=== PATIENT | female | born 1940 | race Caucasian/White ===

== ENCOUNTER 2019-05-20 13:12 | Inpatient (IN) | payer OTHER, BC ==
--- NOTE | 2019-05-20 13:34 | PDOC ---
History of Present Illness - General Chief Complaint: Wound Stated Complaint: INFECTION LFT FOOT Time Seen by Provider: 05/20/19 13:14 History Source: Patient Exam Limitations: No Limitations - History of Present Illness Initial Comments: 79 year old female with PMH HTN, HLD, atrial fibrillation on Xarelto, chronic lower extremity neuropathy, MANDEEP presented to ED for increasing LLE redness/pain xlast few days. Pt was recently admitted for LLE cellulitis ([facility]) x2 weeks ago for 4-5 days, was discharged, saw PCP and podiatry F/U, was told to stop oral Abx. Pt reported the pain of her left foot was so intense this AM that she took 3 Gabapentins and Tramadol, which improved her symptoms. Pt sent to ED by Podiatry Dr. Daily today, to consult Dr. Trejo, Dr. Boswell, and admit to Dr. Barakat's service. PCP: Justo ID: Neil Vascular: Elbert Podiatry: Killian FRANCIS General: denied fever, chills, generalized weakness. HEENT: denied sore throat, rhinorrhea, ear pain. Cardiovascular: denied chest pain, palpitations, syncope, diaphoresis. Respiratory: denied shortness of breath, cough, sputum production, hemoptysis. Gastrointestinal: denied abdominal pain, nausea, vomiting, diarrhea, constipation, blood in stool. Genitourinary: denied dysuria, increased urinary frequency, hematuria, urinary incontinence, flank pain. Back: denied back pain. Musculoskeletal: admitted to LLE pain. Neurological: denied headache, dizziness, numbness, tingling, weakness. Integumentary: admitted to erythema. denied laceration, abrasion. Hematologic/Lymphatic: denied bruising or bleeding. PE Constitutional: Well-nourished, Well-developed, appearing stated age. HEENT: head is normocephalic, atraumatic. EOMI. PERRLA. Neck: supple. Full ROM. Cardiovascular: regular heart rhythm. no murmurs. no pericardial friction rub. Respiratory: clear to auscultation bilaterally. no crackles, rhonchi or wheezing. no stridor. Gastrointestinal: soft, nontender. normal bowel sounds. no rebound, guarding, masses. Extremities: peripheral pulses intact. LLE erythematous up to below left knee. Neurological: CN 2-12 grossly intact. moves all four extremities. Psych: awake, alert, oriented x3. follows commands. answers questions appropriately. Past History - Past Medical History Allergies/Adverse Reactions: Allergies Allergy/AdvReac Type Severity Reaction Status Date / Time codeine Allergy Verified 05/20/19 13:17 morphine Allergy Verified 05/20/19 13:17 Sulfa (Sulfonamide Allergy Verified 05/20/19 13:17 Antibiotics) Home Medications: Ambulatory Orders Armodafinil 1 tab PO DAILY 02/23/18 Rivaroxaban [Xarelto -] 1 tab PO DAILY 02/23/18 Cephalexin Monohydrate [Keflex -] 1 tab PO QID 05/20/19 Diltiazem HCl [Cartia Xt] 1 tab PO HS 05/20/19 Omeprazole 1 tab PO DAILY 05/20/19 Pravastatin Sodium 1 tab PO HS 05/20/19 Pregabalin [Lyrica -] 150 mg PO BID 05/20/19 Sennosides [Senna -] 2 tab PO BID 05/20/19 Telmisartan 1 tab PO HS 05/20/19 traMADol HCL [Ultram -] 1 tab PO DAILY 05/20/19 - Psycho Social/Smoking Cessation Hx Smoking History: Never smoked Have you smoked in the past 12 months: No If you are a former smoker, when did you quit?: 1966 *Physical Exam - Vital Signs Last Vital Signs Temp Pulse Resp BP Pulse Ox 98 F 100 H 18 161/74 97 05/20/19 13:13 05/20/19 13:13 05/20/19 13:13 05/20/19 13:13 05/20/19 13:13 ED Treatment Course - LABORATORY CBC & Chemistry Diagram: 05/20/19 13:56 05/20/19 13:56 Medical Decision Making - Medical Decision Making 79 year old female with above PMH sent to ED by Podiatry for LLE Cellulitis. Initial Vital Signs Temp Pulse Resp BP Pulse Ox 98 F 100 H 18 161/74 97 05/20/19 13:13 05/20/19 13:13 05/20/19 13:13 05/20/19 13:13 05/20/19 13:13 Afebrile. Tachycardic. No tachypnea. Hypertensive. No hypoxia on room air. Labs ordered: CBC, CMP, Mag, VBG, lactate, blood cultures, UA/UC Imaging ordered: CXR Medications ordered: tylenol IV, normal saline bolus 1000 cc once, Vancomycin, Zosyn, lyrica 150 mg PO once CXR report: Name: [facility] RAD[facility]OLOG[facility] Phys: Nitza Bradford JOVANNY : 1940 Age: 79 Sex: F [facility] Acct: [id number] Loc: [address] Exam Date: 05/20/19 [id number]: [id number] EXAM#: TYPE/EXAM: RESULT: [id number] RAD/CHEST X-RAY PORTABLE* Chest: Sepsis A single view of the chest reveals a large heart, normal aorta normal however the lungs are clear. The ends are sharp. The bones and soft tissues are intact. Impression: No acute chest pathology. Reported By: Sanjay Daniel MD 05/20/19 1432 EKG performed at 1511: rate 91, irregularly irregular rhythm, normal axis, low voltage, nonspecific ST changes. -No prior to compare 05/20/19 15:04 Laboratory Results - last 24 hr 05/20/19 05/20/19 05/20/19 13:56 13:56 13:56 WBC 5.1 RBC 4.26 Hgb 12.2 Hct 36.7 MCV 86.1 MCH 28.7 MCHC 33.3 RDW 14.0 Plt Count 205 MPV 7.2 L Absolute Neuts (auto) 3.4 Neutrophils % 65.9 Lymphocytes % 14.4 Monocytes % 15.7 H Eosinophils % 2.8 Basophils % 1.2 Nucleated RBC % 0 PT with INR 13.70 H INR 1.16 H PTT (Actin FS) 36.2 VBG pH 7.40 POC VBG pCO2 41.4 POC VBG pO2 67.6 H VBG HCO3 25.2 VBG O2 Sat (Dave) 92.8 H VBG Base Excess 0.8 No leukocytosis. No anemia. No acidosis. 05/20/19 15:28 CMP Lactic Acid 0.9 mmol/L (0.4-2.0) 05/20/19 13:56 Troponin I < 0.02 ng/ml (0.00-0.05) 05/20/19 13:56 No lactate elevation. Troponin undetectable. 05/20/19 15:46 CMP Sodium 134 mmol/L (136-145) L 05/20/19 13:56 Potassium 4.3 mmol/L (3.5-5.1) 05/20/19 13:56 Chloride 100 mmol/L (98-107) 05/20/19 13:56 Carbon Dioxide 27 mmol/L (21-32) 05/20/19 13:56 Anion Gap 7 MMOL/L (8-16) L 05/20/19 13:56 BUN 8.1 mg/dL (7-18) 05/20/19 13:56 Creatinine 0.4 mg/dL (0.55-1.3) L 05/20/19 13:56 Est GFR (CKD-EPI)AfAm 116.44 05/20/19 13:56 Est GFR (CKD-EPI)NonAf 100.47 05/20/19 13:56 Random Glucose 91 mg/dL (74-106) 05/20/19 13:56 Calcium 8.9 mg/dL (8.5-10.1) 05/20/19 13:56 Magnesium 2.4 mg/dL (1.8-2.4) 05/20/19 13:56 Total Bilirubin 0.5 mg/dL (0.2-1) 05/20/19 13:56 AST 25 U/L (15-37) 05/20/19 13:56 ALT 15 U/L (13-61) 05/20/19 13:56 Alkaline Phosphatase 88 U/L (45-117) 05/20/19 13:56 Total Protein 7.4 g/dl (6.4-8.2) 05/20/19 13:56 Albumin 3.9 g/dl (3.4-5.0) 05/20/19 13:56 Mild hyponatremia - IVF running No ELVI. No transaminitis. Pt to be admitted for cellulitis. 05/20/19 16:30 Sign out given to Dr. Barakat, she requested LLE DVT study. Imaging ordered: bilateral duplex lower extremity Discharge - Discharge Information Problems reviewed: Yes Clinical Impression/Diagnosis: Cellulitis Condition: Stable - Admission Yes - Follow up/Referral - Patient Discharge Instructions - Post Discharge Activity
[2019-05-20] MEDS ORDERED: ACETAMINOPHEN 1000 MG/100 ML VIAL (NON FORMULARY) IVPB ONE (13:53)
[2019-05-20] MEDS ORDERED: SODIUM CHLORIDE 1,000 ML IV STA (13:53)
[2019-05-20] MEDS ORDERED: VANCOMYCIN 1,000 MG in DEXTROSE 5%-WATER - 250 ML IVPB ONE (13:55)
[2019-05-20] MEDS ORDERED: PIPERACILLIN/TAZOB 4.5 GM 4.5 GM in DEXTROSE 5%-WATER 100 ML IVPB ONE (13:55)
[2019-05-20] MEDS ORDERED: VANCOMYCIN 1 GRAM (PRE-DOCKED) 1,000 MG/250 ML BAG IVPB ONE (14:35)
[2019-05-20] MEDS ORDERED: ACETAMINOPHEN INJECTION 100 ML IVPB ONE (14:35)
[2019-05-20] MEDS ORDERED: PIPERACILLIN/TAZOB 4.5 GM 4.5 GM/100 ML BAG IVPB ONE (14:35)
[2019-05-20 14:43] LABS: BASO % 1.2 % (0-2.0); EOS % 2.8 % (0-4.5); HEMATOCRIT 36.7 % (32.4-45.2); HEMOGLOBIN 12.2 GM/dL (10.7-15.3); LYMPH % 14.4 % (8-40); MCH 28.7 pg (25.7-33.7); MCHC 33.3 g/dl (32.0-36.0); MEAN CELL VOLUME 86.1 fl (80-96); MEAN PLT VOLUME 7.2 fl (7.5-11.1); MONO % 15.7 % (3.8-10.2); NEUT % 65.9 % (42.8-82.8); PLATELET COUNT 205 K/MM3 (134-434); RBC 4.26 M/mm3 (3.60-5.2); WHITE BLOOD COUNT 5.1 K/mm3 (4.0-10.0)
[2019-05-20 14:59] LABS: INR 1.16 (0.83-1.09); PROTHROMBIN TIME (PATIENT) 13.7 SEC (9.7-13.0); VENOUS PC02 41.4 mmHg (38-52); VENOUS PH 7.4 (7.31-7.41); VENOUS PO2 67.6 mmHg (28-48)
[2019-05-20 15:02] LABS: ACTIVATED PTT 36.2 SECONDS (25.2-36.5)
[2019-05-20] MEDS ORDERED: PREGABALIN 75 MG CAPSULE PO ONE (15:14)
--- NOTE | 2019-05-20 15:23 | PDOC ---
Documentation entered by Jesse Eugene SCRIBE, acting as scribe for Zan Washburn MD. Zan Washburn MD: This documentation has been prepared by the Valorie graf Nirvannie, SCRIBE, under my direction and personally reviewed by me in its entirety. I confirm that the documentation accurately reflects all work, treatment, procedures, and medical decision making performed by me. Attending Attestation - Resident Resident Name: AmiCara - ED Attending Attestation I have performed the following: I have examined & evaluated the patient, The case was reviewed & discussed with the resident, I agree w/resident's findings & plan, Exceptions are as noted - HPI HPI: 05/20/19 15:02 The patient is a 79 year old female, with a significant past medical history of HTN, HLD, Atrial fibrillation (on Xarelto), chronic lower extremity neuropathy, MANDEEP, who presents to the emergency department with worsening LLE erythema, and pain. As per patient, she was recently admitted 2 weeks ago for IV abx for 4-5 days at [facility] for LLE cellulitis. She was discharged on keflex with improvement of the cellulitis, but then the redness and pain came back last week. Patient saw Dr. publishing director Dr. Daily today who recommended admission for IV abx. She denies recent fevers, chills, headache or dizziness. She denies recent nausea, vomit, diarrhea or constipation. She denies recent dysuria, frequency, urgency or hematuria. She denies recent chest pain or shortness of breath. Allergies: NKA Past surgical history: None reported. Social history: Nonsmoker. Denies EtOH use and recreational drug use. Primary Care Physician: Dr. Kemp ID: Dr. Trejo Vascular: Dr. Boswell Podiatry: Dr. Daily - Physicial Exam PE: 05/20/19 15:20 GENERAL: Awake, alert, and fully oriented, in no acute distress. Very pleasant EYES: PERRLA, EOMI, sclera anicteric, conjunctiva clear ENT: Oropharynx clear without exudates. Moist mucosa NECK: Normal ROM, supple, no lymphadenopathy, JVD, or masses LUNGS: Breath sounds equal, clear to auscultation bilaterally. No wheezes, and no crackles HEART: Irregularly irregular, rate 100, normal S1 and S2, no murmurs, rubs or gallops ABDOMEN: Soft, nontender, normoactive bowel sounds. No guarding, no rebound. No masses EXTREMITIES: LLE erythema extending from dorsum of foot to proximal calf, + induration, ttp. 2+ DP and TP pulse. No crepitus. NEUROLOGICAL: Normal speech, cranial nerves intact, equal strength and sensation b/l SKIN: noted above - Medical Decision Making 05/20/19 15:22 79yo F presents to the ED for IV abx for LLE cellulitis No systemic signs of infection Dr. Daily requests c/s Dr Trejo which has been placed Vanc/Zosyn ordered empirically ANticipate admission
[2019-05-20] MEDS ORDERED: PREGABALIN 100 MG CAPSULE ONE (15:38)
[2019-05-20] MEDS ORDERED: PREGABALIN 50 MG CAPSULE ONE (15:38)
[2019-05-20 15:44] LABS: ALBUMIN 3.9 g/dl (3.4-5.0); BILIRUBIN,TOTAL 0.5 mg/dL (0.2-1); BLOOD UREA NITROGEN 8.1 mg/dL (7-18); CALCIUM 8.9 mg/dL (8.5-10.1); CREATININE 0.4 mg/dL (0.55-1.3); MAGNESIUM 2.4 mg/dL (1.8-2.4); POTASSIUM 4.3 mmol/L (3.5-5.1); TOT PROT 7.4 g/dl (6.4-8.2)
[2019-05-20 18:53] VITALS: BMI 30.4
[2019-05-20] MEDS: ACETAMINOPHEN 325 MG TABLET (FP) PO PRN (21:56)
[2019-05-20] MEDS: PREGABALIN 50 MG CAPSULE PO SCH (21:56)
[2019-05-20] MEDS ORDERED: VANCOMYCIN 1 GM in D5W (PRE-DOCKED) 1,000 MG/250 ML IVPB SCH (22:00)
[2019-05-21] MEDS ORDERED: PIPERACILLIN/TAZOBACTAM 3.375 GM VIAL IVPB ONE ×3 (00:44→16:49)
[2019-05-21] MEDS ORDERED: DEXTROSE 5%-WATER - 50 ML IVPB ONE ×3 (00:44→16:49)
[2019-05-21] MEDS: PIPERACILLIN/TAZOB 3.375 GM 3.375 GM in DEXTROSE 5%-WATER - 50 ML IVPB SCH ×3 (01:10→17:09)
[2019-05-21] MEDS ORDERED: PIPERACILLIN/TAZOB 3.375 GM 3.375 GM in DEXTROSE 5%-WATER - 50 ML IVPB SCH (02:00)
[2019-05-21 03:15] LABS: PH,URINE 7.5 (5.0-8.0); URINE APPEARANCE CLEAR; URINE BILIRUBIN NEGATIVE (NEGATIVE); URINE COLOR YELLOW; URINE GLUCOSE (UA) NEGATIVE (NEGATIVE); URINE KETONE NEGATIVE (NEGATIVE); URINE LEUK ESTERASE NEGATIVE (NEGATIVE); URINE NITRITE NEGATIVE (NEGATIVE); URINE PROTEIN NEGATIVE (NEGATIVE)
[2019-05-21] MEDS: VANCOMYCIN 1 GM in D5W (PRE-DOCKED) 1,000 MG/250 ML IVPB SCH ×2 (05:33→17:04)
[2019-05-21 07:24] LABS: BASO % 1.4 % (0-2.0); EOS % 5.5 % (0-4.5); HEMATOCRIT 35.1 % (32.4-45.2); HEMOGLOBIN 11.8 GM/dL (10.7-15.3); LYMPH % 21.6 % (8-40); MCH 28.8 pg (25.7-33.7); MCHC 33.6 g/dl (32.0-36.0); MEAN CELL VOLUME 85.7 fl (80-96); MEAN PLT VOLUME 7.3 fl (7.5-11.1); MONO % 13.2 % (3.8-10.2); NEUT % 58.3 % (42.8-82.8); PLATELET COUNT 193 K/MM3 (134-434); RBC 4.09 M/mm3 (3.60-5.2); RDW 14.1 % (11.6-15.6); WHITE BLOOD COUNT 3.8 K/mm3 (4.0-10.0)
[2019-05-21 08:22] LABS: ALBUMIN 3.1 g/dl (3.4-5.0); BILIRUBIN,TOTAL 0.4 mg/dL (0.2-1); BLOOD UREA NITROGEN 8.9 mg/dL (7-18); CALCIUM 8.3 mg/dL (8.5-10.1); CREATININE 0.4 mg/dL (0.55-1.3); POTASSIUM 4.1 mmol/L (3.5-5.1); TOT PROT 5.8 g/dl (6.4-8.2)
[2019-05-21] MEDS: PANTOPRAZOLE 20 MG TABLET (FP) PO SCH (09:59)
[2019-05-21] MEDS: PREGABALIN 50 MG CAPSULE PO SCH ×2 (09:59→21:03)
--- NOTE | 2019-05-21 11:07 | CON.ID ---
Consult Consult Specialty:: infectious diseases Referred by:: Reason for Consultation:: cellulitis of the leg - History of Present Illness Chief Complaint: cellulitis of the foot History of Present Illness: 79 year old female, with a significant past medical history of HTN, HLD, Atrial fibrillation (on Xarelto), chronic lower extremity neuropathy, MANDEEP, admitted because of worsening LLE erythema, and pain. As per patient, she was recently admitted 2 weeks ago for IV abx for 4-5 days at [facility] for LLE cellulitis. She was discharged on keflex with improvement of the cellulitis, but then the redness and pain came back last week. Patient saw [employer] systems administrator Dr. Daily today who recommended admission for IV abx. patient also is very tender and c/o of pain She denies recent fevers, chills, headache or dizziness. She denies recent nausea, vomit, diarrhea or constipation. She denies recent dysuria, frequency, urgency or hematuria. She denies recent chest pain or shortness of breath. - History Source History Provided By: Patient Limitations to Obtaining History: No Limitations - Past Medical History ...: No - Alcohol/Substance Use Hx Alcohol Use: No - Smoking History Smoking history: Never smoked Have you smoked in the past 12 months: No If you are a former smoker, when did you quit?: 1966 Home Medications - Allergies Allergies/Adverse Reactions: Allergies Allergy/AdvReac Type Severity Reaction Status Date / Time codeine Allergy Verified 05/20/19 13:17 morphine Allergy Verified 05/20/19 13:17 Sulfa (Sulfonamide Allergy Verified 05/20/19 13:17 Antibiotics) - Home Medications Home Medications: Ambulatory Orders RX: Armodafinil 1 tab PO DAILY 02/23/18 Rivaroxaban [Xarelto -] 1 tab PO DAILY 02/23/18 Cephalexin Monohydrate [Keflex -] 1 tab PO QID 05/20/19 Pregabalin [Lyrica -] 150 mg PO BID 05/20/19 RX: Diltiazem HCl [Cartia Xt] 1 tab PO HS 05/20/19 RX: Omeprazole 1 tab PO DAILY 05/20/19 RX: Pravastatin Sodium 1 tab PO HS 05/20/19 RX: Telmisartan 1 tab PO HS 05/20/19 RX: traMADol HCL [Ultram -] 1 tab PO DAILY 05/20/19 Sennosides [Senna -] 2 tab PO BID 05/20/19 Review of Systems - Review of Systems Constitutional: reports: No Symptoms Eyes: reports: No Symptoms HENT: reports: No Symptoms Neck: reports: No Symptoms Cardiovascular: reports: No Symptoms Respiratory: reports: No Symptoms Gastrointestinal: reports: No Symptoms Genitourinary: reports: No Symptoms Musculoskeletal: reports: Muscle Pain Integumentary: reports: Erythema, Other Neurological: reports: No Symptoms Endocrine: reports: No Symptoms Hematology/Lymphatic: reports: No Symptoms Psychiatric: reports: No Symptoms Physical Exam Vital Signs: Vital Signs Temperature 98.5 F 05/21/19 09:43 Pulse Rate 69 05/21/19 09:43 Respiratory Rate 18 05/21/19 09:43 Blood Pressure 134/89 05/21/19 09:43 O2 Sat by Pulse Oximetry (%) 98 05/21/19 08:55 Constitutional: Yes: Well Nourished, Calm, Mild Distress Eyes: Yes: Conjunctiva Clear HENT: Yes: Atraumatic, Normocephalic Neck: Yes: Supple, Trachea Midline Cardiovascular: Yes: Pulse Irregular Respiratory: Yes: Regular, CTA Bilaterally Gastrointestinal: Yes: Normal Bowel Sounds, Soft Musculoskeletal: Yes: WNL Extremities: Yes: Erythema (of the foot), Other Neurological: Yes: Alert, Oriented Psychiatric: Yes: Alert, Oriented Labs: CBC, BMP 05/21/19 06:29 05/21/19 06:29 Imaging - Results Chest X-ray: Report Reviewed, Image Reviewed X-ray: Report Reviewed, Image Reviewed Assessment/Plan roblem List - Problems (1) Cellulitis Code(s): L03.90 - CELLULITIS, UNSPECIFIED Assessment/Plan Lt foot wound infection Lt foot cellulitis will continue abx await for mri to be done elevation of legs podiatry on case rest as per the team
--- NOTE | 2019-05-21 12:14 | CONSULT ---
- Consultation REQUESTING PROVIDER: Vascular / Wound Care - Evans Boswell CONSULT REQUEST: We have been asked to surgically evaluate this patient for LLE cellulitis PCP: Lyla Barakat History Source: Patient Limitations to Obtaining History: No Limitations HPI: Called to zoila 79 yo female sent in from [facility] by Dr. Daily for further management to include IV ABX for left DM foot wound. 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 Denies n/v/f/c, CP, palpitations, SOB or HOFFMANN. Denies LE rest pain. PMHx: Afib HTN HLD Neuropathy PSHx: Left TKR 2018 Home Meds Armodafinil 1 tab PO DAILY 02/23/18 Rivaroxaban [Xarelto -] 1 tab PO DAILY 02/23/18 Cephalexin Monohydrate [Keflex -] 1 tab PO QID 05/20/19 Diltiazem HCl [Cartia Xt] 1 tab PO HS 05/20/19 Omeprazole 1 tab PO DAILY 05/20/19 Pravastatin Sodium 1 tab PO HS 05/20/19 Pregabalin [Lyrica -] 150 mg PO BID 05/20/19 Sennosides [Senna -] 2 tab PO BID 05/20/19 Telmisartan 1 tab PO HS 05/20/19 traMADol HCL [Ultram -] 1 tab PO DAILY 05/20/19 Allergies codeine, morphine, sulfa (sulfonamide antibiotics) ROS: Unremarkable except for what's contained in HPI. PE: GENERAL: A&O. 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 not malodorous , lichenified. periwound erythema extending proximally. interdigital webspaces preserved/intact. Palpable DP bilat. warm, well-perfused. No calf tenderness. Last Vital Signs Temp Pulse Resp BP Pulse Ox 98.5 F 69 18 134/89 98 05/21/19 09:43 05/21/19 09:43 05/21/19 09:43 05/21/19 09:43 05/21/19 08:55 CBC, BMP 05/21/19 06:29 05/21/19 06:29 INR, PTT INR 1.16 (0.83-1.09) H 05/20/19 13:56 Problem List - Problems (1) Cellulitis Assessment/Plan: 79 yo female with left foot infection associated with diabetes. - Wound care as per Dr. Daily. - Palpable pedal pulses so no indication for further imaging studies or angio. - Incidental finding of a 5.4 x 1.8 x 2.7 cm mass proximal thigh adjacent to deep femoral vein identified. Because patient has on-going infection (could be reactive), recommend patient follow-up with Dr. Germán Sarah ( General Surgery) as out-patient to re-evaluate and determine if open/excisional biopsy needed - Cont IV ABX as per ID - Re-consult PRN Above plan discussed with my attending and agrees On behalf of Dr. Boswell, thank you for the opportunity to participate in your patient's care. Code(s): L03.90 - CELLULITIS, UNSPECIFIED (2) Tinea pedis of left foot Code(s): B35.3 - TINEA PEDIS Visit type - Case Type Case Type: ED Admission - Emergency Emergency Visit: Yes ED Registration Date: 05/20/19 Care time: The patient presented to the Emergency Department on the above date and was hospitalized for further evaluation of their emergent condition. - New patient This patient is new to me today: Yes Date on this admission: 05/21/19
--- NOTE | 2019-05-21 13:15 | EKG ---
Test Reason : Blood Pressure : / mmHG Vent. Rate : 091 BPM Atrial Rate : 075 BPM P-R Int : 000 ms QRS Dur : 084 ms QT Int : 348 ms P-R-T Axes : 000 015 004 degrees QTc Int : 428 ms ATRIAL FIBRILLATION LOW VOLTAGE QRS CANNOT RULE OUT ANTERIOR INFARCT , AGE UNDETERMINED ABNORMAL ECG NO PREVIOUS ECGS AVAILABLE Confirmed by MARIO FRIEND MD ([id number]) on 05/21/2019 1:15:28 PM Referred By: Confirmed By:MARIO FRIEND MD
--- NOTE | 2019-05-21 13:18 | CONSULT ---
Consult Consult Specialty:: Podiatry Reason for Consultation:: Cellulitis with wound left foot. - History of Present Illness Chief Complaint: Pain and swelling with wound left foot. History of Present Illness: Pt was dc from hospital 04/11/19 after tx for same problem. - Past Medical History ...: No - Alcohol/Substance Use Hx Alcohol Use: No - Smoking History Smoking history: Never smoked Have you smoked in the past 12 months: No If you are a former smoker, when did you quit?: 1966 Home Medications - Allergies Allergies/Adverse Reactions: Allergies Allergy/AdvReac Type Severity Reaction Status Date / Time codeine Allergy Verified 05/20/19 13:17 morphine Allergy Verified 05/20/19 13:17 Sulfa (Sulfonamide Allergy Verified 05/20/19 13:17 Antibiotics) - Home Medications Home Medications: Ambulatory Orders Armodafinil 1 tab PO DAILY 02/23/18 Rivaroxaban [Xarelto -] 1 tab PO DAILY 02/23/18 Cephalexin Monohydrate [Keflex -] 1 tab PO QID 05/20/19 Diltiazem HCl [Cartia Xt] 1 tab PO HS 05/20/19 Omeprazole 1 tab PO DAILY 05/20/19 Pravastatin Sodium 1 tab PO HS 05/20/19 Pregabalin [Lyrica -] 150 mg PO BID 05/20/19 Sennosides [Senna -] 2 tab PO BID 05/20/19 Telmisartan 1 tab PO HS 05/20/19 traMADol HCL [Ultram -] 1 tab PO DAILY 05/20/19 Physical Exam Vital Signs: Vital Signs Temperature 98.5 F 05/21/19 09:43 Pulse Rate 69 05/21/19 09:43 Respiratory Rate 18 05/21/19 09:43 Blood Pressure 134/89 05/21/19 09:43 O2 Sat by Pulse Oximetry (%) 98 05/21/19 08:55 Wound/Incision: Yes: Other (cellulitis left foot improved since yesterday, + tender wound dorsum left foot, vsgi, -drainage today,) Labs: CBC, BMP 05/21/19 06:29 05/21/19 06:29 Imaging - Results Ultrasound: Report Reviewed (Discussed with surgical PA Da states he would discuss lymph node with Dr. Boswell and formulate tx.) Assessment/Plan cellulitis Wound left foot abnormal lymph node Reviewed Ultrasound. Discussed with Surgical PA. Niraj to wound left dorsum foot. Tylenol#3 for pain left foot q6h. xray not done yet. mri ordered. Vascular and ID on case.
[2019-05-21] MEDS: ACETAMINOPHEN 325 MG TABLET (FP) PO PRN (15:30)
[2019-05-21] MEDS: NYSTATIN 100,000 UNIT/GM TOPICAL CREAM 15 GM TUBE TP SCH ×2 (15:31→21:25)
[2019-05-21] MEDS: RIVAROXABAN 20 MG TABLET PO SCH (17:09)
[2019-05-21] MEDS: COLLAGENASE CLOSTRIDIUM HIST. 30 GRAMS TUBE TP SCH (21:03)
[2019-05-21] MEDS: traMADol HCL 50 MG TABLET PO PRN (21:05)
--- NOTE | 2019-05-21 21:10 | HP ---
Admitting History and Physical - Past Medical History ...: No - Advance Directives Advance Directives: Yes: Living Will - Smoking History Smoking history: Never smoked Have you smoked in the past 12 months: No If you are a former smoker, when did you quit?: 1965 - Alcohol/Substance Use Hx Alcohol Use: No Home Medications - Allergies Allergies/Adverse Reactions: Allergies Allergy/AdvReac Type Severity Reaction Status Date / Time codeine Allergy Verified 05/20/19 13:17 morphine Allergy Verified 05/20/19 13:17 Sulfa (Sulfonamide Allergy Verified 05/20/19 13:17 Antibiotics) - Home Medications Home Medications: Ambulatory Orders Armodafinil 1 tab PO DAILY 02/23/18 Rivaroxaban [Xarelto -] 1 tab PO DAILY 02/23/18 Cephalexin Monohydrate [Keflex -] 1 tab PO QID 05/20/19 Diltiazem HCl [Cartia Xt] 1 tab PO HS 05/20/19 Omeprazole 1 tab PO DAILY 05/20/19 Pravastatin Sodium 1 tab PO HS 05/20/19 Pregabalin [Lyrica -] 150 mg PO BID 05/20/19 Sennosides [Senna -] 2 tab PO BID 05/20/19 Telmisartan 1 tab PO HS 05/20/19 traMADol HCL [Ultram -] 1 tab PO DAILY 05/20/19 Physical Examination Vital Signs: Vital Signs Temperature 97.3 F L 05/21/19 18:10 Pulse Rate 96 H 05/21/19 18:10 Respiratory Rate 18 05/21/19 18:10 Blood Pressure 140/75 05/21/19 18:10 O2 Sat by Pulse Oximetry (%) 98 05/21/19 08:55 Labs: CBC, BMP 05/21/19 06:29 05/21/19 06:29
[2019-05-21] MEDS: MELATONIN 5 MG TABLETS PO SCH (22:58)
[2019-05-22] MEDS ORDERED: PIPERACILLIN/TAZOBACTAM 3.375 GM VIAL IVPB ONE ×3 (01:01→17:34)
[2019-05-22] MEDS ORDERED: DEXTROSE 5%-WATER - 50 ML IVPB ONE ×3 (01:01→17:34)
[2019-05-22] MEDS: PIPERACILLIN/TAZOB 3.375 GM 3.375 GM in DEXTROSE 5%-WATER - 50 ML IVPB SCH ×3 (02:12→18:07)
[2019-05-22] MEDS: PREGABALIN 50 MG CAPSULE PO SCH ×2 (10:08→21:07)
[2019-05-22] MEDS: NYSTATIN 100,000 UNIT/GM TOPICAL CREAM 15 GM TUBE TP SCH ×2 (10:09→21:25)
[2019-05-22] MEDS: PANTOPRAZOLE 20 MG TABLET (FP) PO SCH (10:09)
[2019-05-22] MEDS: COLLAGENASE CLOSTRIDIUM HIST. 30 GRAMS TUBE TP SCH (10:09)
--- NOTE | 2019-05-22 13:34 | PN ---
Progress Note (short form) - Note Progress Note: Patient seen in bed. Pain improved. vss nvsgi, +improved cellulitis and tenderness, +healing wound dorsum left foot cellulitis r/o om continue ivabx, santyl, wound care. will follow. awaiting mri.
--- NOTE | 2019-05-22 14:15 | PN ---
Progress Note, Physician History of Present Illness: Pt is alert, afebrile. States pain in Lt foot is minimal at this time, controlled with pain meds. Has no other specific complaints. - Current Medication List Current Medications: Active Medications Acetaminophen (Tylenol -) 650 mg PO Q6H PRN PRN Reason: PAIN LEVEL 4-10 Last Admin: 05/21/19 15:30 Dose: 650 mg Collagenase (Santyl -) 1 applic TP DAILY [facility]; Protocol Last Admin: 05/22/19 10:09 Dose: 1 appful Diltiazem HCl (Cardizem Cd -) 120 mg PO HS [facility] Last Admin: 05/21/19 21:03 Dose: 120 mg Piperacillin Sod/Tazobactam (Sod 3.375 gm/ Dextrose) 50 mls @ 100 mls/hr IVPB Q8H-IV [facility]; Protocol Last Admin: 05/22/19 10:08 Dose: 100 mls/hr Melatonin (Melatonin) 5 mg PO HS [facility] Last Admin: 05/21/19 22:58 Dose: 5 mg Nystatin (Mycostatin Cream -) 1 applic TP BID [facility] Last Admin: 05/22/19 10:09 Dose: 1 appful Pantoprazole Sodium (Protonix -) 20 mg PO DAILY [facility] Last Admin: 05/22/19 10:09 Dose: 20 mg Pregabalin (Lyrica -) 150 mg PO BID [facility] Last Admin: 05/22/19 10:08 Dose: 150 mg Rivaroxaban (Xarelto) 20 mg PO DAILY@1800 [facility] Last Admin: 05/21/19 17:09 Dose: 20 mg Tramadol HCl (Ultram -) 50 mg PO Q6H PRN PRN Reason: PAIN LEVEL 1-5 Last Admin: 05/21/19 21:05 Dose: 50 mg - Objective Vital Signs: Vital Signs Temperature 98.0 F 05/22/19 10:00 Pulse Rate 86 05/22/19 10:00 Respiratory Rate 18 05/22/19 10:00 Blood Pressure 126/79 05/22/19 10:00 O2 Sat by Pulse Oximetry (%) 96 05/22/19 00:11 Constitutional: Yes: No Distress, Calm Cardiovascular: Yes: Regular Rate and Rhythm Respiratory: Yes: Regular Gastrointestinal: Yes: Normal Bowel Sounds, Soft Genitourinary: Yes: WNL Wound/Incision: Yes: Other (Lt foot wound with erythema of dorsum , mild tenderness with palpation) Neurological: Yes: Alert, Oriented Labs: CBC, BMP 05/21/19 06:29 05/21/19 06:29 INR, PTT INR 1.16 (0.83-1.09) H 05/20/19 13:56 Microbiology 05/20/19 13:56 Blood - Peripheral Venous Blood Culture - Preliminary NO GROWTH OBTAINED AFTER 24 HOURS, INCUBATION TO CONTINUE FOR 4 DAYS. 05/20/19 13:56 Blood - Peripheral Venous Blood Culture - Preliminary NO GROWTH OBTAINED AFTER 24 HOURS, INCUBATION TO CONTINUE FOR 4 DAYS. - ....Imaging X-ray: Report Reviewed Problem List - Problems (1) Cellulitis Code(s): L03.90 - CELLULITIS, UNSPECIFIED Assessment/Plan Lt foot wound infection Lt foot cellulitis -- continue antibiotics -- Xray results noted, Vascular surgery evaluation done -- awaiting MRI -- continue wound care
[2019-05-22] MEDS: traMADol HCL 50 MG TABLET PO PRN ×2 (14:52→21:07)
[2019-05-22] MEDS: ACETAMINOPHEN 325 MG TABLET (FP) PO PRN ×2 (14:53→21:08)
[2019-05-22] MEDS: RIVAROXABAN 20 MG TABLET PO SCH (18:08)
[2019-05-22] MEDS: MELATONIN 5 MG TABLETS PO SCH (21:07)
--- NOTE | 2019-05-22 23:49 | PN ---
Progress Note, Physician - Current Medication List Current Medications: Active Medications Acetaminophen (Tylenol -) 650 mg PO Q6H PRN PRN Reason: PAIN LEVEL 4-10 Last Admin: 05/22/19 21:08 Dose: 650 mg Collagenase (Santyl -) 1 applic TP DAILY [facility]; Protocol Last Admin: 05/22/19 10:09 Dose: 1 appful Diltiazem HCl (Cardizem Cd -) 120 mg PO HS [facility] Last Admin: 05/22/19 21:07 Dose: 120 mg Piperacillin Sod/Tazobactam (Sod 3.375 gm/ Dextrose) 50 mls @ 100 mls/hr IVPB Q8H-IV [facility]; Protocol Last Admin: 05/22/19 18:07 Dose: 100 mls/hr Melatonin (Melatonin) 5 mg PO HS [facility] Last Admin: 05/22/19 21:07 Dose: 5 mg Nystatin (Mycostatin Cream -) 1 applic TP BID [facility] Last Admin: 05/22/19 21:25 Dose: 1 appful Pantoprazole Sodium (Protonix -) 20 mg PO DAILY [facility] Last Admin: 05/22/19 10:09 Dose: 20 mg Pregabalin (Lyrica -) 150 mg PO BID [facility] Last Admin: 05/22/19 21:07 Dose: 150 mg Rivaroxaban (Xarelto) 20 mg PO DAILY@1800 [facility] Last Admin: 05/22/19 18:08 Dose: 20 mg Tramadol HCl (Ultram -) 50 mg PO Q6H PRN PRN Reason: PAIN LEVEL 1-5 Last Admin: 05/22/19 21:07 Dose: 50 mg - Objective Vital Signs: Vital Signs Temperature 97.9 F 05/22/19 22:00 Pulse Rate 89 05/22/19 22:00 Respiratory Rate 18 05/22/19 22:00 Blood Pressure 112/62 05/22/19 22:00 O2 Sat by Pulse Oximetry (%) 98 05/22/19 21:00 Labs: CBC, BMP 05/21/19 06:29 05/21/19 06:29 INR, PTT INR 1.16 (0.83-1.09) H 05/20/19 13:56
[2019-05-23] MEDS ORDERED: PIPERACILLIN/TAZOBACTAM 3.375 GM VIAL IVPB ONE ×3 (02:46→17:02)
[2019-05-23] MEDS ORDERED: DEXTROSE 5%-WATER - 50 ML IVPB ONE ×3 (02:46→17:02)
[2019-05-23] MEDS: PIPERACILLIN/TAZOB 3.375 GM 3.375 GM in DEXTROSE 5%-WATER - 50 ML IVPB SCH ×3 (02:53→17:06)
[2019-05-23] MEDS: ACETAMINOPHEN 325 MG TABLET (FP) PO PRN ×3 (08:06→21:52)
[2019-05-23] MEDS ORDERED: PT OWN MED DRAWER 7, Y5N ONE (09:01)
[2019-05-23] MEDS: PANTOPRAZOLE 20 MG TABLET (FP) PO SCH (09:06)
[2019-05-23] MEDS: traMADol HCL 50 MG TABLET PO PRN ×3 (09:06→21:53)
[2019-05-23] MEDS: PREGABALIN 50 MG CAPSULE PO SCH ×2 (09:06→21:52)
[2019-05-23] MEDS: NYSTATIN 100,000 UNIT/GM TOPICAL CREAM 15 GM TUBE TP SCH ×2 (09:07→21:53)
[2019-05-23] MEDS: COLLAGENASE CLOSTRIDIUM HIST. 30 GRAMS TUBE TP SCH (09:07)
[2019-05-23] MEDS: RIVAROXABAN 20 MG TABLET PO SCH (17:07)
--- NOTE | 2019-05-23 18:15 | PN ---
Progress Note, Physician History of Present Illness: Pt is alert, afebrile. Still with pain in Lt foot but less LE edema/erythema. MRI results noted. - Current Medication List Current Medications: Active Medications Acetaminophen (Tylenol -) 650 mg PO Q6H PRN PRN Reason: PAIN LEVEL 4-10 Last Admin: 05/23/19 14:37 Dose: 650 mg Collagenase (Santyl -) 1 applic TP DAILY [facility]; Protocol Last Admin: 05/23/19 09:07 Dose: 1 applic Diltiazem HCl (Cardizem Cd -) 120 mg PO HS [facility] Last Admin: 05/22/19 21:07 Dose: 120 mg Piperacillin Sod/Tazobactam (Sod 3.375 gm/ Dextrose) 50 mls @ 100 mls/hr IVPB Q8H-IV [facility]; Protocol Last Admin: 05/23/19 17:06 Dose: 100 mls/hr Melatonin (Melatonin) 5 mg PO HS [facility] Last Admin: 05/22/19 21:07 Dose: 5 mg Nystatin (Mycostatin Cream -) 1 applic TP BID [facility] Last Admin: 05/23/19 09:07 Dose: 1 applic Pantoprazole Sodium (Protonix -) 20 mg PO DAILY [facility] Last Admin: 05/23/19 09:06 Dose: 20 mg Pregabalin (Lyrica -) 150 mg PO BID [facility] Last Admin: 05/23/19 09:06 Dose: 150 mg Rivaroxaban (Xarelto) 20 mg PO DAILY@1800 [facility] Last Admin: 05/23/19 17:07 Dose: 20 mg Tramadol HCl (Ultram -) 50 mg PO Q6H PRN PRN Reason: PAIN LEVEL 1-5 Last Admin: 05/23/19 14:36 Dose: 50 mg - Objective Vital Signs: Vital Signs Temperature 98.2 F 05/23/19 09:08 Pulse Rate 96 H 05/23/19 09:08 Respiratory Rate 18 05/23/19 09:08 Blood Pressure 134/74 05/23/19 09:08 O2 Sat by Pulse Oximetry (%) 98 05/22/19 21:00 Constitutional: Yes: No Distress, Calm HENT: Yes: Atraumatic Neck: Yes: Supple Cardiovascular: Yes: Regular Rate and Rhythm Respiratory: Yes: Regular Gastrointestinal: Yes: Normal Bowel Sounds, Soft Genitourinary: Yes: WNL Wound/Incision: Yes: Other (LLE erythema/edema decreasing, +Lt dorsal foot tenderness, no purulence noted) Neurological: Yes: Alert, Oriented Labs: CBC, BMP 05/21/19 06:29 05/21/19 06:29 INR, PTT INR 1.16 (0.83-1.09) H 05/20/19 13:56 Microbiology 05/20/19 13:56 Blood - Peripheral Venous Blood Culture - Preliminary NO GROWTH OBTAINED AFTER 72 HOURS, INCUBATION TO CONTINUE FOR 2 DAYS. 05/20/19 13:56 Blood - Peripheral Venous Blood Culture - Preliminary NO GROWTH OBTAINED AFTER 72 HOURS, INCUBATION TO CONTINUE FOR 2 DAYS. - ....Imaging MRI: Report Reviewed Problem List - Problems (1) Cellulitis Code(s): L03.90 - CELLULITIS, UNSPECIFIED Assessment/Plan Lt foot wound infection Lt foot cellulitis -- continue antibiotics -- MRI without evidence of abscess/OM -- slowly improving -- pain control
[2019-05-23] MEDS: MELATONIN 5 MG TABLETS PO SCH (21:52)
--- NOTE | 2019-05-23 22:30 | PN ---
Progress Note, Physician History of Present Illness: No new complaints - Current Medication List Current Medications: Active Medications Acetaminophen (Tylenol -) 650 mg PO Q6H PRN PRN Reason: PAIN LEVEL 4-10 Last Admin: 05/23/19 21:52 Dose: 650 mg Collagenase (Santyl -) 1 applic TP DAILY [facility]; Protocol Last Admin: 05/23/19 09:07 Dose: 1 applic Diltiazem HCl (Cardizem Cd -) 120 mg PO HS [facility] Last Admin: 05/23/19 21:52 Dose: 120 mg Piperacillin Sod/Tazobactam (Sod 3.375 gm/ Dextrose) 50 mls @ 100 mls/hr IVPB Q8H-IV [facility]; Protocol Last Admin: 05/23/19 17:06 Dose: 100 mls/hr Melatonin (Melatonin) 5 mg PO HS [facility] Last Admin: 05/23/19 21:52 Dose: 5 mg Nystatin (Mycostatin Cream -) 1 applic TP BID [facility] Last Admin: 05/23/19 21:53 Dose: 1 applic Pantoprazole Sodium (Protonix -) 20 mg PO DAILY [facility] Last Admin: 05/23/19 09:06 Dose: 20 mg Pregabalin (Lyrica -) 150 mg PO BID [facility] Last Admin: 05/23/19 21:52 Dose: 150 mg Rivaroxaban (Xarelto) 20 mg PO DAILY@1800 [facility] Last Admin: 05/23/19 17:07 Dose: 20 mg Tramadol HCl (Ultram -) 50 mg PO Q6H PRN PRN Reason: PAIN LEVEL 1-5 Last Admin: 05/23/19 21:53 Dose: 50 mg - Objective Vital Signs: Vital Signs Temperature 98.2 F 05/23/19 09:08 Pulse Rate 96 H 05/23/19 09:08 Respiratory Rate 18 05/23/19 09:08 Blood Pressure 134/74 05/23/19 09:08 O2 Sat by Pulse Oximetry (%) 98 05/22/19 21:00 Neck: Yes: WNL, Supple Cardiovascular: Yes: WNL, Regular Rate and Rhythm Respiratory: Yes: WNL, Regular, CTA Bilaterally Gastrointestinal: Yes: WNL, Normal Bowel Sounds, Soft Extremities: Yes: Other (LLE w/ erythema/swelling and ulcer lt foot) Labs: CBC, BMP 05/21/19 06:29 05/21/19 06:29 INR, PTT INR 1.16 (0.83-1.09) H 05/20/19 13:56 Problem List - Problems (1) Cellulitis Code(s): L03.90 - CELLULITIS, UNSPECIFIED
[2019-05-24] MEDS ORDERED: PIPERACILLIN/TAZOBACTAM 3.375 GM VIAL IVPB ONE ×3 (01:45→16:50)
[2019-05-24] MEDS ORDERED: DEXTROSE 5%-WATER - 50 ML IVPB ONE ×2 (01:45→16:50)
[2019-05-24] MEDS: PIPERACILLIN/TAZOB 3.375 GM 3.375 GM in DEXTROSE 5%-WATER - 50 ML IVPB SCH ×3 (01:48→17:09)
[2019-05-24] MEDS: traMADol HCL 50 MG TABLET PO PRN ×2 (04:20→15:23)
[2019-05-24] MEDS: ACETAMINOPHEN 325 MG TABLET (FP) PO PRN ×2 (04:21→15:24)
[2019-05-24] MEDS ORDERED: DEXTROSE 5%-WATER - 100 ML IVPB ONE (10:23)
[2019-05-24] MEDS: PANTOPRAZOLE 20 MG TABLET (FP) PO SCH (10:36)
[2019-05-24] MEDS: PREGABALIN 50 MG CAPSULE PO SCH ×2 (10:36→22:50)
[2019-05-24] MEDS: COLLAGENASE CLOSTRIDIUM HIST. 30 GRAMS TUBE TP SCH (10:42)
[2019-05-24] MEDS: NYSTATIN 100,000 UNIT/GM TOPICAL CREAM 15 GM TUBE TP SCH ×2 (10:42→22:51)
--- NOTE | 2019-05-24 13:28 | PN ---
Progress Note, Physician History of Present Illness: stable leg looks much better - Current Medication List Current Medications: Active Medications Acetaminophen (Tylenol -) 650 mg PO Q6H PRN PRN Reason: PAIN LEVEL 4-10 Last Admin: 05/24/19 04:21 Dose: 650 mg Collagenase (Santyl -) 1 applic TP DAILY [facility]; Protocol Last Admin: 05/24/19 10:42 Dose: 1 applic Diltiazem HCl (Cardizem Cd -) 120 mg PO HS [facility] Last Admin: 05/23/19 21:52 Dose: 120 mg Piperacillin Sod/Tazobactam (Sod 3.375 gm/ Dextrose) 50 mls @ 100 mls/hr IVPB Q8H-IV [facility]; Protocol Last Admin: 05/24/19 10:40 Dose: 100 mls/hr Melatonin (Melatonin) 5 mg PO HS [facility] Last Admin: 05/23/19 21:52 Dose: 5 mg Nystatin (Mycostatin Cream -) 1 applic TP BID [facility] Last Admin: 05/24/19 10:42 Dose: 1 applic Pantoprazole Sodium (Protonix -) 20 mg PO DAILY [facility] Last Admin: 05/24/19 10:36 Dose: 20 mg Pregabalin (Lyrica -) 150 mg PO BID [facility] Last Admin: 05/24/19 10:36 Dose: 150 mg Rivaroxaban (Xarelto) 20 mg PO DAILY@1800 [facility] Last Admin: 05/23/19 17:07 Dose: 20 mg Tramadol HCl (Ultram -) 50 mg PO Q6H PRN PRN Reason: PAIN LEVEL 1-5 Last Admin: 05/24/19 04:20 Dose: 50 mg - Objective Vital Signs: Vital Signs Temperature 97.6 F 05/24/19 10:00 Pulse Rate 100 H 05/24/19 10:00 Respiratory Rate 18 05/24/19 10:00 Blood Pressure 119/74 05/24/19 10:00 O2 Sat by Pulse Oximetry (%) 95 05/24/19 09:00 Constitutional: Yes: No Distress, Calm Cardiovascular: Yes: S1, S2 Respiratory: Yes: Regular, CTA Bilaterally Gastrointestinal: Yes: Normal Bowel Sounds, Soft Musculoskeletal: Yes: WNL Extremities: Yes: Erythema (better), Other Neurological: Yes: Alert, Oriented Psychiatric: Yes: Alert, Oriented Labs: CBC, BMP 05/21/19 06:29 05/21/19 06:29 INR, PTT INR 1.16 (0.83-1.09) H 05/20/19 13:56 Assessment/Plan roblem List - Problems (1) Cellulitis Code(s): L03.90 - CELLULITIS, UNSPECIFIED Assessment/Plan Lt foot wound infection Lt foot cellulitis -- continue antibiotics -- MRI without evidence of abscess/OM -- slowly improving -- pain control will probably switch to oral tomorrow
[2019-05-24] MEDS ORDERED: ONDANSETRON 4 MG/2 ML VIAL IVPUSH ONE (13:45)
--- NOTE | 2019-05-24 13:52 | PN ---
Progress Note (short form) - Note Progress Note: Patient seen in bed. Pain improved. vss nvsgi, +improved cellulitis and tenderness, +healing wound dorsum left foot, no om on mri cellulitis continue ivabx, santyl, wound care. Pt referred to Germán Sarah for growth evaluation outpatient. May be dc to home with IVABX and wound care. Will follow till dc.
[2019-05-24] MEDS: RIVAROXABAN 20 MG TABLET PO SCH (17:12)
[2019-05-24] MEDS ORDERED: MELATONIN 5 MG TABLETS PO SCH (22:00)
--- NOTE | 2019-05-24 22:45 | PN ---
Progress Note, Physician History of Present Illness: No new complaints - Current Medication List Current Medications: Active Medications Acetaminophen (Tylenol -) 650 mg PO Q6H PRN PRN Reason: PAIN LEVEL 4-10 Last Admin: 05/24/19 15:24 Dose: 650 mg Collagenase (Santyl -) 1 applic TP DAILY [facility]; Protocol Last Admin: 05/24/19 10:42 Dose: 1 applic Diltiazem HCl (Cardizem Cd -) 120 mg PO HS [facility] Last Admin: 05/23/19 21:52 Dose: 120 mg Piperacillin Sod/Tazobactam (Sod 3.375 gm/ Dextrose) 50 mls @ 100 mls/hr IVPB Q8H-IV [facility]; Protocol Last Admin: 05/24/19 17:09 Dose: 100 mls/hr Melatonin (Melatonin) 5 mg PO HS [facility] Last Admin: 05/23/19 21:52 Dose: 5 mg Melatonin (Melatonin) 5 mg PO HS [facility] Nystatin (Mycostatin Cream -) 1 applic TP BID [facility] Last Admin: 05/24/19 10:42 Dose: 1 applic Pantoprazole Sodium (Protonix -) 20 mg PO DAILY [facility] Last Admin: 05/24/19 10:36 Dose: 20 mg Pregabalin (Lyrica -) 150 mg PO BID [facility] Last Admin: 05/24/19 10:36 Dose: 150 mg Rivaroxaban (Xarelto) 20 mg PO DAILY@1800 [facility] Last Admin: 05/24/19 17:12 Dose: 20 mg Tramadol HCl (Ultram -) 50 mg PO Q6H PRN PRN Reason: PAIN LEVEL 1-5 Last Admin: 05/24/19 15:23 Dose: 50 mg - Objective Vital Signs: Vital Signs Temperature 97.7 F 05/24/19 18:36 Pulse Rate 89 05/24/19 18:36 Respiratory Rate 18 05/24/19 18:36 Blood Pressure 122/66 05/24/19 18:36 O2 Sat by Pulse Oximetry (%) 95 05/24/19 09:00 Cardiovascular: Yes: WNL, Regular Rate and Rhythm Respiratory: Yes: WNL, Regular, CTA Bilaterally Gastrointestinal: Yes: WNL, Normal Bowel Sounds, Soft Extremities: Yes: Other (decreased erythema LLE) Labs: CBC, BMP 05/21/19 06:29 05/21/19 06:29 INR, PTT INR 1.16 (0.83-1.09) H 05/20/19 13:56 Problem List - Problems (1) Cellulitis Assessment/Plan: Cont IV antibxs Possible change to PO antibxs in am as per ID MRI did not show any osteo BC remain negative Pt to f/u w/ surgeon(Dr Sarah) for soft tissue mass Lt thigh(?LMN) as outpt Code(s): L03.90 - CELLULITIS, UNSPECIFIED (2) HTN (hypertension) Assessment/Plan: BP stable Cont diltiazem Code(s): I10 - ESSENTIAL (PRIMARY) HYPERTENSION (3) Afib Assessment/Plan: Heart rate controlled Cont xarelto Code(s): I48.91 - UNSPECIFIED ATRIAL FIBRILLATION (4) Peripheral neuropathy Assessment/Plan: Cont lyrica Code(s): G62.9 - POLYNEUROPATHY, UNSPECIFIED
[2019-05-24] MEDS: MELATONIN 5 MG TABLETS PO SCH (22:50)
[2019-05-25] MEDS: traMADol HCL 50 MG TABLET PO PRN ×2 (00:16→06:48)
[2019-05-25] MEDS ORDERED: PIPERACILLIN/TAZOBACTAM 3.375 GM VIAL IVPB ONE ×2 (00:18→09:03)
[2019-05-25] MEDS ORDERED: DEXTROSE 5%-WATER - 50 ML IVPB ONE ×2 (00:18→09:03)
[2019-05-25] MEDS: PIPERACILLIN/TAZOB 3.375 GM 3.375 GM in DEXTROSE 5%-WATER - 50 ML IVPB SCH ×2 (02:00→09:20)
[2019-05-25] MEDS: ACETAMINOPHEN 325 MG TABLET (FP) PO PRN (06:48)
[2019-05-25] MEDS: COLLAGENASE CLOSTRIDIUM HIST. 30 GRAMS TUBE TP SCH (09:19)
[2019-05-25] MEDS: NYSTATIN 100,000 UNIT/GM TOPICAL CREAM 15 GM TUBE TP SCH (09:19)
[2019-05-25] MEDS: PANTOPRAZOLE 20 MG TABLET (FP) PO SCH (09:19)
[2019-05-25] MEDS: PREGABALIN 50 MG CAPSULE PO SCH (09:19)
--- NOTE | 2019-05-25 12:03 | PN ---
Progress Note, Physician History of Present Illness: doing well cellulitis resolving looks much better - Current Medication List Current Medications: Active Medications Acetaminophen (Tylenol -) 650 mg PO Q6H PRN PRN Reason: PAIN LEVEL 4-10 Last Admin: 05/25/19 06:48 Dose: 650 mg Collagenase (Santyl -) 1 applic TP DAILY [facility]; Protocol Last Admin: 05/25/19 09:19 Dose: 1 applic Diltiazem HCl (Cardizem Cd -) 120 mg PO HS [facility] Last Admin: 05/24/19 22:50 Dose: 120 mg Piperacillin Sod/Tazobactam (Sod 3.375 gm/ Dextrose) 50 mls @ 100 mls/hr IVPB Q8H-IV [facility]; Protocol Last Admin: 05/25/19 09:20 Dose: 100 mls/hr Melatonin (Melatonin) 5 mg PO HS [facility] Last Admin: 05/24/19 22:50 Dose: 5 mg Melatonin (Melatonin) 5 mg PO HS [facility] Last Admin: 05/24/19 22:50 Dose: 5 mg Nystatin (Mycostatin Cream -) 1 applic TP BID [facility] Last Admin: 05/25/19 09:19 Dose: 1 applic Pantoprazole Sodium (Protonix -) 20 mg PO DAILY [facility] Last Admin: 05/25/19 09:19 Dose: 20 mg Pregabalin (Lyrica -) 150 mg PO BID [facility] Last Admin: 05/25/19 09:19 Dose: 150 mg Rivaroxaban (Xarelto) 20 mg PO DAILY@1800 [facility] Last Admin: 05/24/19 17:12 Dose: 20 mg Tramadol HCl (Ultram -) 50 mg PO Q6H PRN PRN Reason: PAIN LEVEL 1-5 Last Admin: 05/25/19 06:48 Dose: 50 mg - Objective Vital Signs: Vital Signs Temperature 98.5 F 05/25/19 06:00 Pulse Rate 85 05/25/19 06:00 Respiratory Rate 18 05/25/19 06:00 Blood Pressure 128/77 05/25/19 06:00 O2 Sat by Pulse Oximetry (%) 96 05/24/19 21:00 Constitutional: Yes: No Distress, Calm Cardiovascular: Yes: S1, S2 Respiratory: Yes: Regular, CTA Bilaterally Gastrointestinal: Yes: Normal Bowel Sounds, Soft Musculoskeletal: Yes: WNL Extremities: Yes: Erythema (resolving), Other Neurological: Yes: Alert, Oriented Labs: CBC, BMP 05/21/19 06:29 05/21/19 06:29 INR, PTT INR 1.16 (0.83-1.09) H 05/20/19 13:56 Assessment/Plan roblem List - Problems (1) Cellulitis Code(s): L03.90 - CELLULITIS, UNSPECIFIED Assessment/Plan Lt foot wound infection Lt foot cellulitis can change abx to oral augmentin for a week wound care rest as per the team follow with podiatry
[2019-05-25 15:13] VITALS: BP 114/63; PULSE 100; TEMP 98.4
== END 2019-05-25 16:37 | disposition home or self-care (01) | DRG 603 ==
LOC: JER 13:12 → JERBED 14:11 → J7W 18:17
PROVIDERS: ADMIT Internal Medicine; ATTEND Internal Medicine
DX: L03.116 Cellulitis of left lower limb (principal); E87.1 Hypo-osmolality and hyponatremia; E78.5 Hyperlipidemia, unspecified; I10 Essential (primary) hypertension; G47.33 Obstructive sleep apnea (adult) (pediatric); I48.91 Unspecified atrial fibrillation; G57.83 Other specified mononeuropathies of bilateral lower limbs; G62.9 Polyneuropathy, unspecified
CPT/HCPCS: 36415; 71045-TC-FY; 73630-TC-LT; 73718-TC-LT; 80053; 81003; 82803; 83036; 83605; 83735; 84484; 85025; 85610; 85730; 87040; 93005; 93010; 93970-TC; 94660; 97116-GP; 97161-GP; 99283-25; G0463-25; J0131; J7030

== ENCOUNTER 2019-07-15 10:38 | Inpatient (IN) | payer OTHER, BC ==
--- NOTE | 2019-07-15 11:35 | PDOC ---
History of Present Illness - General Chief Complaint: Pain, Acute Stated Complaint: L/LEG PAIN History Source: Patient, Spouse Exam Limitations: Intoxication - History of Present Illness Initial Comments: 07/15/19 11:34 PCP: Sanjay Becerra POD: Dr. Araceli Dexterc: Dr. Boswell ID: Dr. 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 Patient endorses cellulitis since February 2019, s/p multiple rounds of abx, three hospitalizations, with intermittent resolution. Patient now on medical marijuana for chronic LLE pains and pain associated with cellulitis. Seen by treasurer yesterday who told her to f/u with her MD, Podiatry today sent her to the ER for IV ABX and admission. She notes her leg was red yesterday but said "I haven't been looking at it much so I wouldn't know " and endorses worsening pain today despite medication. Denies fevers, chills, nausea, vomiting, abdominal pain, chest pain, SOB, palpitations. Increasing fatigue over several days, also using medical marijuana daily. Pt sent to ED by Podiatry Dr. Daily today, to consult Dr. Trejo, Dr. Boswell, and admit to Dr. Barakat's service. All: codeine, morphine, sulfa Meds: per chart PMH: as above PSH: as above, LLE surgery Past History - Travel Traveled outside of the country in the last 30 days: No Close contact w/someone who was outside of country & ill: No - Past Medical History Allergies/Adverse Reactions: Allergies Allergy/AdvReac Type Severity Reaction Status Date / Time codeine Allergy Verified 05/20/19 13:17 morphine Allergy Verified 05/20/19 13:17 Sulfa (Sulfonamide Allergy Verified 05/20/19 13:17 Antibiotics) Home Medications: Ambulatory Orders Armodafinil 1 tab PO DAILY 02/23/18 Rivaroxaban [Xarelto -] 1 tab PO DAILY 02/23/18 Diltiazem HCl [Cartia Xt] 1 tab PO HS 05/20/19 Pravastatin Sodium 1 tab PO HS 05/20/19 Sennosides [Senna -] 2 tab PO BID 05/20/19 Telmisartan 1 tab PO HS 05/20/19 Acetaminophen [Tylenol .Regular Strength -] 650 mg PO Q6H PRN #100 tablet Melatonin 5 mg PO HS tab 05/25/19 Pregabalin [Lyrica] 250 mg PO BID 05/31/19 Cannabidiol (Cbd) Extract [Epidiolex] 2 drop PO Q4H PRN 07/01/19 Medical Marijuana Capsules 1 tab PO Q6H PRN 07/01/19 Collagenase Clostridium Hist. [Santyl] 1 applic TP DAILY #90 oint...g. 07/05/19 Anemia: No Asthma: No Cancer: Yes (melanoma on face) Cardiac Disorders: Yes (Afib on xarelto; PVD) CVA: No COPD: No CHF: No Dementia: No Diabetes: No GI Disorders: Yes (GERD) Disorders: No HTN: Yes Hypercholesterolemia: Yes Liver Disease: No Seizures: No Thyroid Disease: No - Surgical History Abdominal Surgery: No Appendectomy: Yes Cardiac Surgery: No Cholecystectomy: Yes Lung Surgery: No Neurologic Surgery: No Orthopedic Surgery: Yes (left total knee replacement 2018) - Immunization History Immunization Up to Date: No - Psycho Social/Smoking Cessation Hx Smoking History: Never smoked Have you smoked in the past 12 months: No If you are a former smoker, when did you quit?: over 50 years ago Information on smoking cessation initiated: No Hx Alcohol Use: No Drug/Substance Use Hx: No Substance Use Type: None Hx Substance Use Treatment: No Review of Systems - Review of Systems Able to Perform ROS?: Yes Is the patient limited Faroese proficient: Yes Constitutional: No: Chills, Diaphoresis, Fever, Weakness HEENTM: No: Recent change in vision, Nose Congestion, Throat Pain Respiratory: No: Cough, Shortness of Breath, Wheezing Cardiac (ROS): No: Chest Pain, Edema, Irregular Heart Rate, Lightheadedness, Palpitations, Syncope, Chest Tightness ABD/GI: No: Constipated, Diarrhea, Nausea, Poor Appetite, Poor Fluid Intake, Vomiting : No: Burning, Dysuria, Frequency Musculoskeletal: No: Muscle Pain, Muscle Weakness Integumentary: Yes: See HPI, Change in Color, Erythema, Lesions. No: Pallor, Pruritus, Rash Neurological: No: Headache, Numbness, Tingling, Weakness Psychiatric: No: Stressors, Change in Appetite Hematologic/Lymphatic: No: Anemia, Blood Clots, Easy Bleeding All Other Systems: Reviewed and Negative *Physical Exam - Vital Signs Last Vital Signs Temp Pulse Resp BP Pulse Ox 98.1 F 73 16 127/79 98 07/15/19 10:42 07/15/19 10:42 07/15/19 10:42 07/15/19 10:42 07/15/19 10:42 - Physical Exam 07/15/19 11:55 Vitals reviewed, AFVSS GEN: Well appearing, appears stated age, NAD, uncomfortable. AAOx3. HEENT: NCAT, EOMI, PERRL. Sclera anicteric, non-injected. No facial asymmetry. Moist mucous membranes. Normal voice. Trachea midline. CV: RRR, S1/S2, no murmurs / rubs / gallops appreciated. LUNG: CTAB, normal work of breathing. No wheezes, rales, rhonchi. No cough. Speaking full sentences. GI: Soft, NTND, +BS, no guarding, no rebound. No masses. Neg CVAT b/l. EXTREMITIES: 2+ distal pulses including LLE DP. LLE TTP with swelling, warmth, erythema, extending to just below the knee, swelling to the thigh, wound noted on dorsum of left foot, gross edema thoughout LLE, no crepitus, no drainage SKIN: See extremity exam, otherwise no rashes, no jaundice. PSYCH: Intoxicated with marijuana, easily distractable / mildly tangential. Cooperative and appropriate. NEURO: CN grossly intact. Moving all extremities well. Normal strength and sensation grossly. 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 History notable for chronic LLE cellulitis with multiple admissions for IV ABX. Exam notable for LLE cellulitic changes, normal vital signs, preserved LLE DP pulse. DDX: Cellulitis, less likely DVT (neg study 12/24 ), unlikely necrotizing infection or compartment syndrome. - CBC, CMP, BCx - CXR, EKG - UA, UCx - Vanc/Zosyn - 1L IVF - Ofirmev 07/15/19 13:18 - No leukocytosis or anemia - Hyponatremia, renal function wnl 07/15/19 13:27 - No acute changes on CXR - EKbpm, Afib, normal axis, low voltage QRS, no ischemic change noted, normal EKG Dispo: Admit Med/Surg Discharge - Discharge Information Problems reviewed: Yes Clinical Impression/Diagnosis: Cellulitis Qualifiers: Site of cellulitis: extremity Site of cellulitis of extremity: lower extremity Laterality: left Qualified Code(s): L03.116 - Cellulitis of left lower limb Condition: Stable - Admission Yes - Follow up/Referral Referrals: Sanjay Becerra MD [Primary Care Provider] - - Patient Discharge Instructions - Post Discharge Activity
[2019-07-15] MEDS ORDERED: ACETAMINOPHEN 1000 MG/100 ML VIAL (NON FORMULARY) IVPB ONE (11:37)
[2019-07-15] MEDS ORDERED: SODIUM CHLORIDE 0.9% 500 ML INFUS.BAG IV ONE (11:37)
[2019-07-15] MEDS ORDERED: VANCOMYCIN 1 GM in D5W (PRE-DOCKED) 1,000 MG/250 ML IVPB ONE (11:43)
[2019-07-15] MEDS ORDERED: PIPERACILLIN/TAZOB 4.5 GM 4.5 GM in DEXTROSE 5%-WATER 100 ML IVPB ONE (11:44)
[2019-07-15] MEDS ORDERED: ACETAMINOPHEN INJECTION 100 ML IVPB ONE (12:07)
[2019-07-15 12:53] LABS: BASO % 0.7 % (0-2.0); EOS % 1.6 % (0-4.5); HEMATOCRIT 33.5 % (32.4-45.2); HEMOGLOBIN 11.5 GM/dL (10.7-15.3); LYMPH % 9.8 % (8-40); MCH 28.8 pg (25.7-33.7); MCHC 34.2 g/dl (32.0-36.0); MEAN CELL VOLUME 84.3 fl (80-96); MONO % 11.9 % (3.8-10.2); PLATELET COUNT 247 K/MM3 (134-434); RBC 3.98 M/mm3 (3.60-5.2); RDW 13.7 % (11.6-15.6); WHITE BLOOD COUNT 4.4 K/mm3 (4.0-10.0)
[2019-07-15 13:24] LABS: ALBUMIN 3.2 g/dl (3.4-5.0); BILIRUBIN,TOTAL 0.4 mg/dL (0.2-1); BLOOD UREA NITROGEN 9.1 mg/dL (7-18); CALCIUM 8.6 mg/dL (8.5-10.1); CREATININE 0.4 mg/dL (0.55-1.3); POTASSIUM 4.3 mmol/L (3.5-5.1); TOT PROT 6.8 g/dl (6.4-8.2)
[2019-07-15] MEDS ORDERED: PIPERACILLIN/TAZOB 4.5 GM 4.5 GM/100 ML BAG IVPB ONE (13:25)
[2019-07-15] MEDS ORDERED: VANCOMYCIN 1 GRAM (PRE-DOCKED) 1,000 MG/250 ML BAG IVPB ONE (13:26)
[2019-07-15 13:59] LABS: URINE APPEARANCE CLEAR; URINE BILIRUBIN NEGATIVE (NEGATIVE); URINE COLOR YELLOW; URINE GLUCOSE (UA) NEGATIVE (NEGATIVE); URINE KETONE NEGATIVE (NEGATIVE); URINE LEUK ESTERASE NEGATIVE (NEGATIVE); URINE NITRITE NEGATIVE (NEGATIVE); URINE PROTEIN NEGATIVE (NEGATIVE); URINE UROBILINOGEN 0.2 mg/dL (0.2-1.0)
--- NOTE | 2019-07-15 14:02 | PDOC ---
Documentation entered by Claribel Ford SCRIBE, acting as scribe for Lyla Jones MD. Lyla Jones MD: This documentation has been prepared by the Liliana graf Brenda, SCRIBE, under my direction and personally reviewed by me in its entirety. I confirm that the documentation accurately reflects all work, treatment, procedures, and medical decision making performed by me. Attending Attestation - Resident Resident Name: TejasFélix - ED Attending Attestation I have performed the following: I have examined & evaluated the patient, The case was reviewed & discussed with the resident, I agree w/resident's findings & plan, Exceptions are as noted - HPI HPI: 79 yo F history HTN, HL, afib on xarelto, neuropathy, MANDEEP presents with swollen , painful L lower leg. She has been treated for cellulitis in the past, it has not resolved. C/o severe pain, redness. - Physicial Exam PE: 07/15/19 11:06 GENERAL: Awake, alert, and fully oriented, in no acute distress HEAD: No signs of trauma EYES: PERRLA, EOMI, sclera anicteric, conjunctiva clear ENT: Auricles normal inspection, hearing grossly normal, nares patent, oropharynx clear without exudates. Moist mucosa NECK: Normal ROM, supple, no lymphadenopathy, JVD, or masses LUNGS: Breath sounds equal, clear to auscultation bilaterally. No wheezes, and no crackles HEART: Regular rate and rhythm, normal S1 and S2, no murmurs, rubs or gallops ABDOMEN: Soft, nontender, normoactive bowel sounds. No guarding, no rebound. No masses EXTREMITIES: Normal range of motion, no edema. No clubbing or cyanosis. LLE with 3+ pitting edema, warmth, erythema, exquisitely tender diffusely throughout the lower leg. NEUROLOGICAL: Cranial nerves II through XII grossly intact. Normal speech. Motor and sensation intact SKIN: Warm, Dry, normal turgor, no rashes or lesions noted. - Medical Decision Making Pt presents with significant cellulitis to the L lower leg, circumferential, affecting the entire lower leg. Will give IV abx and admit.
--- NOTE | 2019-07-15 14:15 | EKG ---
Test Reason : Blood Pressure : / mmHG Vent. Rate : 089 BPM Atrial Rate : 101 BPM P-R Int : 000 ms QRS Dur : 072 ms QT Int : 334 ms P-R-T Axes : 000 024 019 degrees QTc Int : 406 ms POOR DATA QUALITY, INTERPRETATION MAY BE ADVERSELY AFFECTED ATRIAL FIBRILLATION LOW VOLTAGE QRS CANNOT RULE OUT ANTEROSEPTAL INFARCT (CITED ON OR BEFORE 20-MAY-2019) ABNORMAL ECG WHEN COMPARED WITH ECG OF 20-MAY-2019 15:11, NO SIGNIFICANT CHANGE WAS FOUND Confirmed by KENNEY CROWLEY MD ([id number]) on 07/15/2019 2:14:45 PM Referred By: Confirmed By:KENNEY CROWLEY MD
[2019-07-15] MEDS ORDERED: traMADol HCL 50 MG TABLET PO ONE (16:52)
[2019-07-15] MEDS ORDERED: traMADol HCL 50 MG TABLET ONE (16:55)
[2019-07-15] MEDS ORDERED: PREGABALIN 100 MG CAPSULE PO ONE ×2 (17:48→17:50)
[2019-07-15] MEDS ORDERED: PREGABALIN 50 MG CAPSULE ONE ×2 (18:00→22:12)
[2019-07-15] MEDS ORDERED: PREGABALIN 100 MG CAPSULE ONE ×2 (18:01→22:13)
[2019-07-15] MEDS: VANCOMYCIN 1 GM PREMIX - 1 GM/200 ML BAG IVPB SCH (18:31)
[2019-07-15] MEDS ORDERED: PREGABALIN 100 MG CAPSULE PO SCH (22:00)
--- NOTE | 2019-07-15 22:28 | HP ---
Admitting History and Physical - Admission History of Present Illness: 79 year old female with PMH HTN, HLD, atrial fibrillation on Xarelto, chronic lower extremity neuropathy, MANDEEP coming to the hospital for recurrent cellulitis of the left lower ext. Patient has been hospitalized in the past for this recurrent cellulitis. Pt was sent by research program coordinator bc her leg was swollen and tender with foul smell. Pt notes her leg was red yesterday but said "I haven't been looking at it much so I wouldn't know" and endorses worsening pain despite medication. 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 Cardiovascular: Yes: AFIB, HTN, Hyperlipdemia - Smoking History Smoking history: Never smoked Have you smoked in the past 12 months: No If you are a former smoker, when did you quit?: over 50 years ago - Alcohol/Substance Use Hx Alcohol Use: No Home Medications - Allergies Allergies/Adverse Reactions: Allergies Allergy/AdvReac Type Severity Reaction Status Date / Time codeine Allergy Verified 05/20/19 13:17 morphine Allergy Verified 05/20/19 13:17 Sulfa (Sulfonamide Allergy Verified 05/20/19 13:17 Antibiotics) - Home Medications Home Medications: Ambulatory Orders Armodafinil 1 tab PO DAILY 02/23/18 Rivaroxaban [Xarelto -] 1 tab PO DAILY 02/23/18 Diltiazem HCl [Cartia Xt] 1 tab PO HS 05/20/19 Pravastatin Sodium 1 tab PO HS 05/20/19 Sennosides [Senna -] 2 tab PO BID 05/20/19 Telmisartan 1 tab PO HS 05/20/19 Melatonin 5 mg PO HS tab 05/25/19 Pregabalin [Lyrica] 250 mg PO BID 05/31/19 Medical Marijuana Capsules 1 tab PO Q6H PRN 07/01/19 Omeprazole 20 mg PO ACBK 07/17/19 Family Medical History Family History: Unremarkable Review of Systems - Review of Systems Constitutional: reports: Lethargy Eyes: reports: No Symptoms HENT: reports: No Symptoms Neck: reports: No Symptoms Cardiovascular: reports: No Symptoms Respiratory: reports: No Symptoms Gastrointestinal: reports: No Symptoms Genitourinary: reports: No Symptoms Physical Examination Vital Signs: Vital Signs Temperature 98.1 F 07/15/19 10:42 Pulse Rate 91 H 07/15/19 19:37 Respiratory Rate 20 07/15/19 19:37 Blood Pressure 116/71 07/15/19 19:37 O2 Sat by Pulse Oximetry (%) 98 07/15/19 19:37 Constitutional: Yes: Well Nourished, Obese Eyes: Yes: WNL HENT: Yes: WNL Neck: Yes: WNL, Supple Cardiovascular: Yes: WNL, Regular Rate and Rhythm Respiratory: Yes: WNL, Regular, CTA Bilaterally Gastrointestinal: Yes: WNL, Normal Bowel Sounds, Soft, Abdomen, Obese Extremities: Yes: Other ((+) erythema LLE w/ swelling) Edema: Yes Edema: LLE: 1+, RLE: 1+ Neurological: Yes: WNL, Alert, Oriented ...Motor Strength: WNL Labs: CBC, BMP 07/15/19 12:20 07/15/19 12:20 Problem List - Problems (1) Cellulitis Assessment/Plan: Cont IV antibxs Code(s): L03.90 - CELLULITIS, UNSPECIFIED Qualifiers: Site of cellulitis: extremity Site of cellulitis of extremity: lower extremity Laterality: left Qualified Code(s): L03.116 - Cellulitis of left lower limb (2) HLD (hyperlipidemia) Assessment/Plan: Cont lipitor Code(s): E78.5 - HYPERLIPIDEMIA, UNSPECIFIED (3) Afib Assessment/Plan: Heart rate controlled Cont xarelto/cardizem Code(s): I48.91 - UNSPECIFIED ATRIAL FIBRILLATION (4) GERD (gastroesophageal reflux disease) Assessment/Plan: Cont protonix Code(s): K21.9 - GASTRO-ESOPHAGEAL REFLUX DISEASE WITHOUT ESOPHAGITIS (5) HTN (hypertension) Assessment/Plan: BP stable Cont valsartan/cardizem Code(s): I10 - ESSENTIAL (PRIMARY) HYPERTENSION (6) PVD (peripheral vascular disease) Code(s): I73.9 - PERIPHERAL VASCULAR DISEASE, UNSPECIFIED (7) Peripheral neuropathy Assessment/Plan: Cont tramadol/tyelnol Code(s): G62.9 - POLYNEUROPATHY, UNSPECIFIED
[2019-07-15] MEDS: MELATONIN 5 MG TABLETS PO SCH (22:34)
[2019-07-15] MEDS: PREGABALIN PO SCH (22:34)
[2019-07-15] MEDS: SENNOSIDES 8.6MG TABLET (FP) PO SCH (22:35)
[2019-07-15] MEDS: ACETAMINOPHEN 325 MG TABLET (FP) PO PRN (22:36)
[2019-07-15] MEDS: ATORVASTATIN CA 10 MG TABLET (FP) PO SCH (22:36)
[2019-07-16] MEDS ORDERED: PIPERACILLIN/TAZOBACTAM 3.375 GM VIAL IVPB ONE ×2 (01:42→09:21)
[2019-07-16] MEDS ORDERED: DEXTROSE 5%-WATER - 50 ML IVPB ONE ×3 (01:43→14:36)
[2019-07-16] MEDS: PIPERACILLIN/TAZOB 3.375 GM 3.375 GM in DEXTROSE 5%-WATER - 50 ML IVPB SCH ×3 (02:15→14:25)
[2019-07-16 03:54] VITALS: BMI 32.8
[2019-07-16] MEDS: ACETAMINOPHEN 325 MG TABLET (FP) PO PRN ×3 (07:38→22:02)
[2019-07-16 08:26] LABS: BASO % 1.8 % (0-2.0); EOS % 5.2 % (0-4.5); HEMATOCRIT 33.3 % (32.4-45.2); HEMOGLOBIN 11.3 GM/dL (10.7-15.3); LYMPH % 21.5 % (8-40); MCH 29.1 pg (25.7-33.7); MCHC 33.8 g/dl (32.0-36.0); MEAN PLT VOLUME 6.6 fl (7.5-11.1); MONO % 17.6 % (3.8-10.2); NEUT % 53.9 % (42.8-82.8); PLATELET COUNT 239 K/MM3 (134-434); RBC 3.87 M/mm3 (3.60-5.2); WHITE BLOOD COUNT 3.3 K/mm3 (4.0-10.0)
[2019-07-16 08:54] LABS: ALBUMIN 2.9 g/dl (3.4-5.0); BILIRUBIN,TOTAL 0.3 mg/dL (0.2-1); BLOOD UREA NITROGEN 5.6 mg/dL (7-18); CALCIUM 8.5 mg/dL (8.5-10.1); CREATININE 0.4 mg/dL (0.55-1.3); POTASSIUM 4.3 mmol/L (3.5-5.1); TOT PROT 6.1 g/dl (6.4-8.2)
[2019-07-16] MEDS ORDERED: PREGABALIN 100 MG CAPSULE ONE ×2 (09:21→20:39)
[2019-07-16] MEDS ORDERED: PREGABALIN 50 MG CAPSULE ONE ×2 (09:21→20:39)
[2019-07-16] MEDS ORDERED: ARMODAFINIL PO SCH (10:00)
[2019-07-16] MEDS: SENNOSIDES 8.6MG TABLET (FP) PO SCH ×2 (10:19→21:06)
[2019-07-16] MEDS: VALSARTAN 160 MG TABLET (UD) PO SCH (10:20)
[2019-07-16] MEDS: PREGABALIN PO SCH ×2 (10:20→21:06)
--- NOTE | 2019-07-16 10:49 | CONSULT ---
- Consultation REQUESTING PROVIDER: CONSULT REQUEST: We have been asked to surgically evaluate this patient for Cellulitis PCP:Lyla Barakat HISTORY OF PRESENT ILLNESS: 79yo F h/o recurrent LLE cellulitis, pt was sent to the hospital by Dr. Daily for worsening pain and redness in her Left leg. Pt denies any history of vascular issues or surgery. Home Medications Medication Instructions Recorded Armodafinil 1 tab PO DAILY 02/23/18 Rivaroxaban [Xarelto -] 1 tab PO DAILY 02/23/18 Diltiazem HCl [Cartia Xt] 1 tab PO HS 05/20/19 Pravastatin Sodium 1 tab PO HS 05/20/19 Sennosides [Senna -] 2 tab PO BID 05/20/19 Telmisartan 1 tab PO HS 05/20/19 Melatonin 5 mg PO HS tab 05/25/19 Pregabalin [Lyrica] 250 mg PO BID 05/31/19 Medical Marijuana Capsules 1 tab PO Q6H PRN 07/01/19 Allergies Allergy/AdvReac Type Severity Reaction Status Date / Time codeine Allergy Verified 05/20/19 13:17 morphine Allergy Verified 05/20/19 13:17 Sulfa (Sulfonamide Allergy Verified 05/20/19 13:17 Antibiotics) PHYSICAL EXAM: GENERAL: Awake, alert, and fully oriented, in no acute distress. HEAD: Normal with no signs of trauma. EYES: PERRL, sclera anicteric, conjunctiva clear. NECK: Normal ROM, supple without lymphadenopathy, JVD, or masses. LUNGS: breathing comfortably LOWER EXTREMITIES: 2+ pulses, warm, well-perfused. +2 edema, LLE shows erythema and tenderness. no open wounds. NEUROLOGICAL: Normal speech, gait not observed. PSYCH: Cooperative. Good eye contact. Appropriate mood and affect. SKIN: Warm, dry, normal turgor, no rashes or lesions noted. Vital Signs Temperature 97.6 F 07/16/19 06:35 Pulse Rate 83 07/16/19 06:35 Respiratory Rate 20 07/16/19 06:35 Blood Pressure 139/74 07/16/19 06:35 O2 Sat by Pulse Oximetry (%) 98 07/16/19 03:00 Lab Results WBC 3.3 K/mm3 (4.0-10.0) L 07/16/19 07:52 RBC 3.87 M/mm3 (3.60-5.2) 07/16/19 07:52 Hgb 11.3 GM/dL (10.7-15.3) 07/16/19 07:52 Hct 33.3 % (32.4-45.2) 07/16/19 07:52 MCV 86.0 fl (80-96) 07/16/19 07:52 MCHC 33.8 g/dl (32.0-36.0) 07/16/19 07:52 RDW 14.0 % (11.6-15.6) 07/16/19 07:52 Plt Count 239 K/MM3 (134-434) 07/16/19 07:52 Sodium 135 mmol/L (136-145) L 07/16/19 07:52 Potassium 4.3 mmol/L (3.5-5.1) 07/16/19 07:52 Chloride 103 mmol/L (98-107) 07/16/19 07:52 Carbon Dioxide 26 mmol/L (21-32) 07/16/19 07:52 Anion Gap 6 MMOL/L (8-16) L 07/16/19 07:52 BUN 5.6 mg/dL (7-18) L 07/16/19 07:52 Creatinine 0.4 mg/dL (0.55-1.3) L 07/16/19 07:52 Random Glucose 94 mg/dL (74-106) 07/16/19 07:52 Calcium 8.5 mg/dL (8.5-10.1) 07/16/19 07:52 Problem List - Problems (1) Cellulitis Assessment/Plan: Plan -no vascular intervention needed at this time -abx as per med/ID -follow up with Dr. Daily -pt will need compression stockings once cellulitis has cleared for edema Code(s): L03.90 - CELLULITIS, UNSPECIFIED Qualifiers: Site of cellulitis: extremity Site of cellulitis of extremity: lower extremity Laterality: left Qualified Code(s): L03.116 - Cellulitis of left lower limb
[2019-07-16] MEDS ORDERED: VANCOMYCIN 1 GRAM (PRE-DOCKED) 1,000 MG/250 ML BAG IVPB ONE (13:00)
--- NOTE | 2019-07-16 13:05 | CON.ID ---
Consult Consult Specialty:: infectious diseases Referred by:: Reason for Consultation:: left leg cellulitis - History of Present Illness Chief Complaint: swelling and tenderness of the left leg History of Present Illness: 79 year old female with PMH HTN, HLD, atrial fibrillation on Xarelto, chronic lower extremity neuropathy, MANDEEP coming to the hospital for cellulitis of the left lower ext. patient has ahd this couple of times and has been treated with abx before patient went to the podiatry department and was sens here as her leg was swollen and tender with foul smell She notes her leg was red yesterday but said "I haven't been looking at it much so I wouldn't know" and endorses worsening pain despite medication. Denies fevers, chills, nausea, vomiting, abdominal pain, chest pain, SOB, palpitations. Increasing fatigue over several days, also using medical marijuana daily. patient on medical marijuana for the pain - History Source History Provided By: Patient Limitations to Obtaining History: No Limitations - Alcohol/Substance Use Hx Alcohol Use: No - Smoking History Smoking history: Never smoked Have you smoked in the past 12 months: No If you are a former smoker, when did you quit?: over 50 years ago Home Medications - Allergies Allergies/Adverse Reactions: Allergies Allergy/AdvReac Type Severity Reaction Status Date / Time codeine Allergy Verified 05/20/19 13:17 morphine Allergy Verified 05/20/19 13:17 Sulfa (Sulfonamide Allergy Verified 05/20/19 13:17 Antibiotics) - Home Medications Home Medications: Ambulatory Orders Armodafinil 1 tab PO DAILY 02/23/18 Rivaroxaban [Xarelto -] 1 tab PO DAILY 02/23/18 Diltiazem HCl [Cartia Xt] 1 tab PO HS 05/20/19 Pravastatin Sodium 1 tab PO HS 05/20/19 Sennosides [Senna -] 2 tab PO BID 05/20/19 Telmisartan 1 tab PO HS 05/20/19 Melatonin 5 mg PO HS tab 05/25/19 Pregabalin [Lyrica] 250 mg PO BID 05/31/19 Medical Marijuana Capsules 1 tab PO Q6H PRN 07/01/19 Review of Systems - Review of Systems Constitutional: reports: No Symptoms Eyes: reports: No Symptoms HENT: reports: No Symptoms Neck: reports: No Symptoms Cardiovascular: reports: No Symptoms Respiratory: reports: No Symptoms Gastrointestinal: reports: No Symptoms Genitourinary: reports: No Symptoms Musculoskeletal: reports: Muscle Pain, Other Integumentary: reports: Erythema, Other Neurological: reports: No Symptoms Endocrine: reports: No Symptoms Hematology/Lymphatic: reports: No Symptoms Psychiatric: reports: No Symptoms Physical Exam Vital Signs: Vital Signs Temperature 97.6 F 07/16/19 06:35 Pulse Rate 83 07/16/19 06:35 Respiratory Rate 20 07/16/19 06:35 Blood Pressure 139/74 07/16/19 06:35 O2 Sat by Pulse Oximetry (%) 98 07/16/19 03:00 Constitutional: Yes: Well Nourished, No Distress, Calm Cardiovascular: Yes: S1, S2 Respiratory: Yes: Regular, CTA Bilaterally Gastrointestinal: Yes: Normal Bowel Sounds, Soft Musculoskeletal: Yes: Muscle Pain Extremities: Yes: Erythema, Other Labs: CBC, BMP 07/16/19 07:52 07/16/19 07:52 Assessment/Plan patient with multiple medical problems coming in with cellulitis of the leg we will start patient on iv abx elevation of the leg await for he reports rest as per the team
[2019-07-16] MEDS: VANCOMYCIN 1 GM PREMIX - 1 GM/200 ML BAG IVPB SCH (14:25)
[2019-07-16] MEDS ORDERED: cefTRIAXone SODIUM 1 GM VIAL ONE (14:36)
[2019-07-16] MEDS: CEFTRIAXONE 1 GM in DEXTROSE 5%-WATER - 50 ML IVPB SCH (15:15)
[2019-07-16] MEDS ORDERED: traMADol HCL 50 MG TABLET PO ONE (16:20)
[2019-07-16] MEDS: RIVAROXABAN 20 MG TABLET PO SCH (17:30)
[2019-07-16] MEDS: MELATONIN 5 MG TABLETS PO SCH (21:06)
[2019-07-16] MEDS: ATORVASTATIN CA 10 MG TABLET (FP) PO SCH (21:06)
[2019-07-16] MEDS: traMADol HCL 50 MG TABLET PO PRN (23:00)
--- NOTE | 2019-07-16 23:03 | PN ---
Progress Note, Physician History of Present Illness: Pt complains of pain to LLE - Current Medication List Current Medications: Active Medications Acetaminophen (Tylenol -) 650 mg PO Q6H PRN PRN Reason: PAIN LEVEL 4-10 Last Admin: 07/16/19 22:02 Dose: 650 mg Atorvastatin Calcium (Lipitor -) 10 mg PO HS [facility] Last Admin: 07/16/19 21:06 Dose: 10 mg Diltiazem HCl (Cardizem Cd -) 120 mg PO [facility] Last Admin: 07/16/19 21:06 Dose: 120 mg Ceftriaxone Sodium 1 gm/ (Dextrose) 50 mls @ 100 mls/hr IVPB DAILY [facility]; Protocol Last Admin: 07/16/19 15:15 Dose: 100 mls/hr Vancomycin HCl 1,500 mg/ (Dextrose) 500 mls @ 250 mls/hr IVPB Q24H [facility]; Protocol Melatonin (Melatonin) 5 mg PO HS [facility] Last Admin: 07/16/19 21:06 Dose: 5 mg Non-Formulary Medication (Armodafinil [Armodafinil]) 1 tab PO DAILY [facility] Pregabalin 200 mg/ Pregabalin (50 mg) 250 mg PO BID [facility] Last Admin: 07/16/19 21:06 Dose: 250 mg Rivaroxaban (Xarelto) 20 mg PO 1800 [facility] Last Admin: 07/16/19 17:30 Dose: 20 mg Senna (Senna -) 2 tab PO BID [facility] Last Admin: 07/16/19 21:06 Dose: 2 tab Tramadol HCl (Ultram -) 50 mg PO Q8H PRN PRN Reason: pain 6-10 Last Admin: 07/16/19 23:00 Dose: 50 mg Valsartan (Diovan -) 320 mg PO DAILY [facility] Last Admin: 07/16/19 10:20 Dose: 320 mg - Objective Vital Signs: Vital Signs Temperature 97.9 F 07/16/19 19:19 Pulse Rate 103 H 07/16/19 19:19 Respiratory Rate 20 07/16/19 19:19 Blood Pressure 127/76 07/16/19 19:19 O2 Sat by Pulse Oximetry (%) 98 07/16/19 09:00 Neck: Yes: WNL, Supple Cardiovascular: Yes: Pulse Irregular Respiratory: Yes: WNL, Regular, CTA Bilaterally Gastrointestinal: Yes: WNL, Normal Bowel Sounds, Soft Extremities: Yes: Other ((+) erythema LLE) Edema: LLE: 1+, RLE: 1+ Labs: CBC, BMP 07/16/19 07:52 07/16/19 07:52 Problem List - Problems (1) Cellulitis Assessment/Plan: Cont IV antibxs Code(s): L03.90 - CELLULITIS, UNSPECIFIED Qualifiers: Site of cellulitis: extremity Site of cellulitis of extremity: lower extremity Laterality: left Qualified Code(s): L03.116 - Cellulitis of left lower limb (2) HLD (hyperlipidemia) Assessment/Plan: Cont lipitor Code(s): E78.5 - HYPERLIPIDEMIA, UNSPECIFIED (3) Afib Assessment/Plan: Heart rate controlled Cont xarelto/cardizem Code(s): I48.91 - UNSPECIFIED ATRIAL FIBRILLATION (4) GERD (gastroesophageal reflux disease) Assessment/Plan: Cont protonix Code(s): K21.9 - GASTRO-ESOPHAGEAL REFLUX DISEASE WITHOUT ESOPHAGITIS (5) HTN (hypertension) Assessment/Plan: BP stable Cont valsartan/cardizem Code(s): I10 - ESSENTIAL (PRIMARY) HYPERTENSION (6) PVD (peripheral vascular disease) Code(s): I73.9 - PERIPHERAL VASCULAR DISEASE, UNSPECIFIED (7) Peripheral neuropathy Assessment/Plan: Cont tramadol/tyelnol Code(s): G62.9 - POLYNEUROPATHY, UNSPECIFIED
[2019-07-17] MEDS: ACETAMINOPHEN 325 MG TABLET (FP) PO PRN ×2 (04:43→22:13)
[2019-07-17] MEDS ORDERED: PREGABALIN 100 MG CAPSULE ONE ×2 (09:13→21:12)
[2019-07-17] MEDS ORDERED: PREGABALIN 50 MG CAPSULE ONE ×2 (09:13→21:11)
[2019-07-17] MEDS ORDERED: cefTRIAXone SODIUM 1 GM VIAL ONE (09:14)
[2019-07-17] MEDS ORDERED: DEXTROSE 5%-WATER - 50 ML IVPB ONE (09:14)
[2019-07-17] MEDS: PREGABALIN PO SCH ×2 (09:21→21:20)
[2019-07-17] MEDS: VALSARTAN 160 MG TABLET (UD) PO SCH (09:21)
[2019-07-17] MEDS: traMADol HCL 50 MG TABLET PO PRN ×2 (09:21→20:54)
[2019-07-17] MEDS: SENNOSIDES 8.6MG TABLET (FP) PO SCH ×2 (09:21→21:20)
[2019-07-17] MEDS: CEFTRIAXONE 1 GM in DEXTROSE 5%-WATER - 50 ML IVPB SCH (09:22)
[2019-07-17] MEDS ORDERED: ONDANSETRON *ODT* 4 MG TABLET SL PRN (11:34)
[2019-07-17] MEDS ORDERED: PANTOPRAZOLE 40 MG TABLET PO ONE (11:45)
[2019-07-17] MEDS: VANCOMYCIN HCL 1,500 MG in DEXTROSE 5%-WATER - 500 ML IVPB SCH (13:38)
--- NOTE | 2019-07-17 18:22 | PN ---
Progress Note, Physician History of Present Illness: Pt states she feels some nausea but has no abd pain or any vomiting episodes. She has less pain in LLE since yesterday. - Current Medication List Current Medications: Active Medications Acetaminophen (Tylenol -) 650 mg PO Q6H PRN PRN Reason: PAIN LEVEL 4-10 Last Admin: 07/17/19 04:43 Dose: 650 mg Atorvastatin Calcium (Lipitor -) 10 mg PO [facility] Last Admin: 07/16/19 21:06 Dose: 10 mg Diltiazem HCl (Cardizem Cd -) 120 mg PO [facility] Last Admin: 07/16/19 21:06 Dose: 120 mg Ceftriaxone Sodium 1 gm/ (Dextrose) 50 mls @ 100 mls/hr IVPB DAILY [facility]; Protocol Last Admin: 07/17/19 09:22 Dose: 100 mls/hr Vancomycin HCl 1,500 mg/ (Dextrose) 500 mls @ 250 mls/hr IVPB Q24H [facility]; Protocol Last Admin: 07/17/19 13:38 Dose: 250 mls/hr Melatonin (Melatonin) 5 mg PO [facility] Last Admin: 07/16/19 21:06 Dose: 5 mg Non-Formulary Medication (Armodafinil [Armodafinil]) 1 tab PO DAILY [facility] Ondansetron HCl (Zofran Odt -) 4 mg SL Q8H PRN PRN Reason: NAUSEA Pregabalin 200 mg/ Pregabalin (50 mg) 250 mg PO BID [facility] Last Admin: 07/17/19 09:21 Dose: 250 mg Rivaroxaban (Xarelto) 20 mg PO 1800 [facility] Last Admin: 07/16/19 17:30 Dose: 20 mg Senna (Senna -) 2 tab PO BID [facility] Last Admin: 07/17/19 09:21 Dose: 2 tab Tramadol HCl (Ultram -) 50 mg PO Q8H PRN PRN Reason: pain 6-10 Last Admin: 07/17/19 09:21 Dose: 50 mg Valsartan (Diovan -) 320 mg PO DAILY [facility] Last Admin: 07/17/19 09:21 Dose: 320 mg - Objective Vital Signs: Vital Signs Temperature 97.9 F 07/17/19 13:00 Pulse Rate 70 07/17/19 13:00 Respiratory Rate 20 07/17/19 13:00 Blood Pressure 140/83 07/17/19 13:00 O2 Sat by Pulse Oximetry (%) 98 07/17/19 09:00 Constitutional: Yes: No Distress, Calm Cardiovascular: Yes: Regular Rate and Rhythm Respiratory: Yes: CTA Bilaterally Gastrointestinal: Yes: Normal Bowel Sounds, Soft Genitourinary: Yes: WNL Extremities: Yes: Erythema (LLE erythema/warmth, less tender) Peripheral Pulses WNL: Yes Neurological: Yes: Alert, Oriented Labs: CBC, BMP 07/16/19 07:52 07/16/19 07:52 Microbiology 07/15/19 12:20 Blood - Peripheral Venous Blood Culture - Preliminary NO GROWTH OBTAINED AFTER 48 HOURS, INCUBATION TO CONTINUE FOR 3 DAYS. 07/15/19 12:20 Blood - Peripheral Venous Blood Culture - Preliminary NO GROWTH OBTAINED AFTER 48 HOURS, INCUBATION TO CONTINUE FOR 3 DAYS. 07/15/19 13:10 Urine - Urine Clean Catch Urine Culture - Final NO GROWTH OBTAINED Problem List - Problems (1) Cellulitis Code(s): L03.90 - CELLULITIS, UNSPECIFIED Qualifiers: Site of cellulitis: extremity Site of cellulitis of extremity: lower extremity Laterality: left Qualified Code(s): L03.116 - Cellulitis of left lower limb (2) Afib Code(s): I48.91 - UNSPECIFIED ATRIAL FIBRILLATION (3) GERD (gastroesophageal reflux disease) Code(s): K21.9 - GASTRO-ESOPHAGEAL REFLUX DISEASE WITHOUT ESOPHAGITIS (4) HTN (hypertension) Code(s): I10 - ESSENTIAL (PRIMARY) HYPERTENSION (5) PVD (peripheral vascular disease) Code(s): I73.9 - PERIPHERAL VASCULAR DISEASE, UNSPECIFIED (6) Peripheral neuropathy Code(s): G62.9 - POLYNEUROPATHY, UNSPECIFIED Assessment/Plan LLE cellulitis -- still with significant warmth/erythema but with less pain -- continue current antibiotics -- Vancomycin trough prior to 4th dose -- monitor renal function
[2019-07-17] MEDS ORDERED: PT OWN MED DRAWER 7, Y5N ONE (18:32)
[2019-07-17] MEDS: RIVAROXABAN 20 MG TABLET PO SCH (18:45)
--- NOTE | 2019-07-17 20:17 | PN ---
Progress Note, Physician History of Present Illness: No new complaints - Current Medication List Current Medications: Active Medications Acetaminophen (Tylenol -) 650 mg PO Q6H PRN PRN Reason: PAIN LEVEL 4-10 Last Admin: 07/17/19 04:43 Dose: 650 mg Atorvastatin Calcium (Lipitor -) 10 mg PO HS [facility] Last Admin: 07/16/19 21:06 Dose: 10 mg Diltiazem HCl (Cardizem Cd -) 120 mg PO [facility] Last Admin: 07/16/19 21:06 Dose: 120 mg Ceftriaxone Sodium 1 gm/ (Dextrose) 50 mls @ 100 mls/hr IVPB DAILY [facility]; Protocol Last Admin: 07/17/19 09:22 Dose: 100 mls/hr Vancomycin HCl 1,500 mg/ (Dextrose) 500 mls @ 250 mls/hr IVPB Q24H [facility]; Protocol Last Admin: 07/17/19 13:38 Dose: 250 mls/hr Melatonin (Melatonin) 5 mg PO [facility] Last Admin: 07/16/19 21:06 Dose: 5 mg Non-Formulary Medication (Armodafinil [Armodafinil]) 1 tab PO DAILY [facility] Ondansetron HCl (Zofran Odt -) 4 mg SL Q8H PRN PRN Reason: NAUSEA Last Admin: 07/17/19 18:45 Dose: 4 mg Pregabalin 200 mg/ Pregabalin (50 mg) 250 mg PO BID [facility] Last Admin: 07/17/19 09:21 Dose: 250 mg Rivaroxaban (Xarelto) 20 mg PO 1800 [facility] Last Admin: 07/17/19 18:45 Dose: 20 mg Senna (Senna -) 2 tab PO BID [facility] Last Admin: 07/17/19 09:21 Dose: 2 tab Tramadol HCl (Ultram -) 50 mg PO Q8H PRN PRN Reason: pain 6-10 Last Admin: 07/17/19 09:21 Dose: 50 mg Valsartan (Diovan -) 320 mg PO DAILY [facility] Last Admin: 07/17/19 09:21 Dose: 320 mg - Objective Vital Signs: Vital Signs Temperature 98.6 F 07/17/19 18:20 Pulse Rate 97 H 07/17/19 18:20 Respiratory Rate 20 07/17/19 18:20 Blood Pressure 144/89 07/17/19 18:20 O2 Sat by Pulse Oximetry (%) 98 07/17/19 09:00 Constitutional: Yes: Obese Neck: Yes: WNL, Supple Cardiovascular: Yes: Pulse Irregular Respiratory: Yes: WNL, Regular, CTA Bilaterally Gastrointestinal: Yes: WNL, Normal Bowel Sounds, Soft, Abdomen, Obese Extremities: Yes: Other ((+) erythema LLE) Edema: LLE: 1+, RLE: 1+ Labs: CBC, BMP 07/16/19 07:52 07/16/19 07:52 Problem List - Problems (1) Cellulitis Assessment/Plan: Cont IV Vanco/ceftriaxone Not much improvement in erythema Check vanco level] Check labs in am Code(s): L03.90 - CELLULITIS, UNSPECIFIED Qualifiers: Site of cellulitis: extremity Site of cellulitis of extremity: lower extremity Laterality: left Qualified Code(s): L03.116 - Cellulitis of left lower limb (2) HLD (hyperlipidemia) Assessment/Plan: Cont lipitor Code(s): E78.5 - HYPERLIPIDEMIA, UNSPECIFIED (3) Afib Assessment/Plan: Heart rate controlled Cont xarelto/cardizem Code(s): I48.91 - UNSPECIFIED ATRIAL FIBRILLATION (4) GERD (gastroesophageal reflux disease) Assessment/Plan: Cont protonix Code(s): K21.9 - GASTRO-ESOPHAGEAL REFLUX DISEASE WITHOUT ESOPHAGITIS (5) HTN (hypertension) Assessment/Plan: BP stable Cont valsartan/cardizem Code(s): I10 - ESSENTIAL (PRIMARY) HYPERTENSION (6) PVD (peripheral vascular disease) Code(s): I73.9 - PERIPHERAL VASCULAR DISEASE, UNSPECIFIED (7) Peripheral neuropathy Assessment/Plan: Cont tramadol/tyelnol Code(s): G62.9 - POLYNEUROPATHY, UNSPECIFIED
[2019-07-17] MEDS: ATORVASTATIN CA 10 MG TABLET (FP) PO SCH (21:20)
[2019-07-17] MEDS: MELATONIN 5 MG TABLETS PO SCH (21:20)
[2019-07-18] MEDS: ACETAMINOPHEN 325 MG TABLET (FP) PO PRN ×2 (07:14→15:28)
[2019-07-18] MEDS ORDERED: PREGABALIN 50 MG CAPSULE ONE ×2 (08:58→20:22)
[2019-07-18] MEDS ORDERED: PREGABALIN 100 MG CAPSULE ONE ×2 (08:59→20:23)
[2019-07-18] MEDS ORDERED: DEXTROSE 5%-WATER - 50 ML IVPB ONE (08:59)
[2019-07-18] MEDS ORDERED: cefTRIAXone SODIUM 1 GM VIAL ONE (08:59)
[2019-07-18] MEDS: SENNOSIDES 8.6MG TABLET (FP) PO SCH ×2 (09:21→21:05)
[2019-07-18] MEDS: PANTOPRAZOLE 40 MG TABLET PO SCH (09:23)
[2019-07-18] MEDS: PREGABALIN PO SCH ×2 (09:23→21:05)
[2019-07-18] MEDS: VALSARTAN 160 MG TABLET (UD) PO SCH (09:24)
[2019-07-18] MEDS: CEFTRIAXONE 1 GM in DEXTROSE 5%-WATER - 50 ML IVPB SCH (09:24)
[2019-07-18] MEDS: traMADol HCL 50 MG TABLET PO PRN ×2 (11:41→21:05)
[2019-07-18] MEDS: VANCOMYCIN HCL 1,500 MG in DEXTROSE 5%-WATER - 500 ML IVPB SCH (17:09)
[2019-07-18] MEDS: RIVAROXABAN 20 MG TABLET PO SCH (17:11)
[2019-07-18] MEDS ORDERED: PT OWN MED DRAWER 7, Y5N ONE (17:40)
--- NOTE | 2019-07-18 20:53 | PN ---
Progress Note, Physician History of Present Illness: Pt still with some LLE tenderness. Remains afebrile. Tolerating antibiotics. - Current Medication List Current Medications: Active Medications Acetaminophen (Tylenol -) 650 mg PO Q6H PRN PRN Reason: PAIN LEVEL 4-10 Last Admin: 07/18/19 15:28 Dose: 650 mg Atorvastatin Calcium (Lipitor -) 10 mg PO HS [facility] Last Admin: 07/17/19 21:20 Dose: 10 mg Diltiazem HCl (Cardizem Cd -) 120 mg PO HS [facility] Last Admin: 07/17/19 21:20 Dose: 120 mg Ceftriaxone Sodium 1 gm/ (Dextrose) 50 mls @ 100 mls/hr IVPB DAILY [facility]; Protocol Last Admin: 07/18/19 09:24 Dose: 100 mls/hr Vancomycin HCl 1,500 mg/ (Dextrose) 500 mls @ 250 mls/hr IVPB Q24H [facility]; Protocol Last Admin: 07/18/19 17:09 Dose: 250 mls/hr Melatonin (Melatonin) 5 mg PO [facility] Last Admin: 07/17/19 21:20 Dose: 5 mg Non-Formulary Medication (Armodafinil [Armodafinil]) 1 tab PO DAILY [facility] Ondansetron HCl (Zofran Odt -) 4 mg SL Q8H PRN PRN Reason: NAUSEA Last Admin: 07/17/19 18:45 Dose: 4 mg Pantoprazole Sodium (Protonix -) 40 mg PO DAILY [facility] Last Admin: 07/18/19 09:23 Dose: 40 mg Pregabalin 200 mg/ Pregabalin (50 mg) 250 mg PO BID [facility] Last Admin: 07/18/19 09:23 Dose: 250 mg Rivaroxaban (Xarelto) 20 mg PO 1800 [facility] Last Admin: 07/18/19 17:11 Dose: 20 mg Senna (Senna -) 2 tab PO BID [facility] Last Admin: 07/18/19 09:21 Dose: 2 tab Tramadol HCl (Ultram -) 50 mg PO Q8H PRN PRN Reason: pain 6-10 Last Admin: 07/18/19 11:41 Dose: 50 mg Valsartan (Diovan -) 320 mg PO DAILY [facility] Last Admin: 07/18/19 09:24 Dose: 320 mg - Objective Vital Signs: Vital Signs Temperature 98.1 F 07/18/19 17:57 Pulse Rate 120 H 07/18/19 17:57 Respiratory Rate 20 07/18/19 17:57 Blood Pressure 130/80 07/18/19 17:57 O2 Sat by Pulse Oximetry (%) 97 07/18/19 09:00 Constitutional: Yes: No Distress, Calm Eyes: Yes: Conjunctiva Clear Cardiovascular: Yes: Regular Rate and Rhythm Respiratory: Yes: Regular Gastrointestinal: Yes: Normal Bowel Sounds, Soft Extremities: Yes: Erythema (LLE erythema/warmth, +tenderness to touch but less) Peripheral Pulses WNL: Yes Neurological: Yes: Alert Labs: CBC, BMP 07/16/19 07:52 07/16/19 07:52 Microbiology 07/15/19 12:20 Blood - Peripheral Venous Blood Culture - Preliminary NO GROWTH OBTAINED AFTER 72 HOURS, INCUBATION TO CONTINUE FOR 2 DAYS. 07/15/19 12:20 Blood - Peripheral Venous Blood Culture - Preliminary NO GROWTH OBTAINED AFTER 72 HOURS, INCUBATION TO CONTINUE FOR 2 DAYS. 07/15/19 13:10 Urine - Urine Clean Catch Urine Culture - Final NO GROWTH OBTAINED Problem List - Problems (1) Cellulitis Code(s): L03.90 - CELLULITIS, UNSPECIFIED Qualifiers: Site of cellulitis: extremity Site of cellulitis of extremity: lower extremity Laterality: left Qualified Code(s): L03.116 - Cellulitis of left lower limb (2) Afib Code(s): I48.91 - UNSPECIFIED ATRIAL FIBRILLATION (3) GERD (gastroesophageal reflux disease) Code(s): K21.9 - GASTRO-ESOPHAGEAL REFLUX DISEASE WITHOUT ESOPHAGITIS (4) HTN (hypertension) Code(s): I10 - ESSENTIAL (PRIMARY) HYPERTENSION (5) PVD (peripheral vascular disease) Code(s): I73.9 - PERIPHERAL VASCULAR DISEASE, UNSPECIFIED (6) Peripheral neuropathy Code(s): G62.9 - POLYNEUROPATHY, UNSPECIFIED Assessment/Plan LLE cellulitis -- still with warmth/erythema -- continue Ceftriaxone/Vancomycin -- Vancomycin trough prior to 4th dose -- monitor renal function, daily labs
[2019-07-18] MEDS: ATORVASTATIN CA 10 MG TABLET (FP) PO SCH (21:05)
[2019-07-18] MEDS: MELATONIN 5 MG TABLETS PO SCH (21:05)
--- NOTE | 2019-07-18 23:14 | PN ---
Progress Note, Physician History of Present Illness: No new complaints - Current Medication List Current Medications: Active Medications Acetaminophen (Tylenol -) 650 mg PO Q6H PRN PRN Reason: PAIN LEVEL 4-10 Last Admin: 07/18/19 15:28 Dose: 650 mg Atorvastatin Calcium (Lipitor -) 10 mg PO HS [facility] Last Admin: 07/18/19 21:05 Dose: 10 mg Diltiazem HCl (Cardizem Cd -) 120 mg PO HS [facility] Last Admin: 07/18/19 21:05 Dose: 120 mg Ceftriaxone Sodium 1 gm/ (Dextrose) 50 mls @ 100 mls/hr IVPB DAILY [facility]; Protocol Last Admin: 07/18/19 09:24 Dose: 100 mls/hr Vancomycin HCl 1,500 mg/ (Dextrose) 500 mls @ 250 mls/hr IVPB Q24H [facility]; Protocol Last Admin: 07/18/19 17:09 Dose: 250 mls/hr Melatonin (Melatonin) 5 mg PO [facility] Last Admin: 07/18/19 21:05 Dose: 5 mg Non-Formulary Medication (Armodafinil [Armodafinil]) 1 tab PO DAILY [facility] Ondansetron HCl (Zofran Odt -) 4 mg SL Q8H PRN PRN Reason: NAUSEA Last Admin: 07/17/19 18:45 Dose: 4 mg Pantoprazole Sodium (Protonix -) 40 mg PO DAILY [facility] Last Admin: 07/18/19 09:23 Dose: 40 mg Pregabalin 200 mg/ Pregabalin (50 mg) 250 mg PO BID [facility] Last Admin: 07/18/19 21:05 Dose: 250 mg Rivaroxaban (Xarelto) 20 mg PO 1800 [facility] Last Admin: 07/18/19 17:11 Dose: 20 mg Senna (Senna -) 2 tab PO BID [facility] Last Admin: 07/18/19 21:05 Dose: 2 tab Tramadol HCl (Ultram -) 50 mg PO Q8H PRN PRN Reason: pain 6-10 Last Admin: 07/18/19 21:05 Dose: 50 mg Valsartan (Diovan -) 320 mg PO DAILY [facility] Last Admin: 07/18/19 09:24 Dose: 320 mg - Objective Vital Signs: Vital Signs Temperature 97.9 F 07/18/19 21:00 Pulse Rate 85 07/18/19 21:00 Respiratory Rate 20 01/19/20 21:00 Blood Pressure 134/95 07/18/19 21:00 O2 Sat by Pulse Oximetry (%) 98 07/18/19 21:00 Constitutional: Yes: Well Nourished, Obese Neck: Yes: WNL, Supple Cardiovascular: Yes: Pulse Irregular Respiratory: Yes: WNL, Regular, CTA Bilaterally Gastrointestinal: Yes: WNL, Normal Bowel Sounds, Soft, Abdomen, Obese Extremities: Yes: Other ((+) erythema LLE) Edema: LLE: 1+, RLE: 1+ Labs: CBC, BMP 07/16/19 07:52 07/16/19 07:52 Problem List - Problems (1) Cellulitis Assessment/Plan: Cont IV Vanco/ceftriaxone Not much improvement in erythema Check vanco level] Check labs in am Code(s): L03.90 - CELLULITIS, UNSPECIFIED Qualifiers: Site of cellulitis: extremity Site of cellulitis of extremity: lower extremity Laterality: left Qualified Code(s): L03.116 - Cellulitis of left lower limb (2) HLD (hyperlipidemia) Assessment/Plan: Cont lipitor Code(s): E78.5 - HYPERLIPIDEMIA, UNSPECIFIED (3) Afib Assessment/Plan: Heart rate controlled Cont xarelto/cardizem Code(s): I48.91 - UNSPECIFIED ATRIAL FIBRILLATION (4) GERD (gastroesophageal reflux disease) Assessment/Plan: Cont protonix Code(s): K21.9 - GASTRO-ESOPHAGEAL REFLUX DISEASE WITHOUT ESOPHAGITIS (5) HTN (hypertension) Assessment/Plan: BP stable Cont valsartan/cardizem Code(s): I10 - ESSENTIAL (PRIMARY) HYPERTENSION (6) PVD (peripheral vascular disease) Code(s): I73.9 - PERIPHERAL VASCULAR DISEASE, UNSPECIFIED (7) Peripheral neuropathy Assessment/Plan: Cont tramadol/tyelnol Code(s): G62.9 - POLYNEUROPATHY, UNSPECIFIED
[2019-07-19 08:12] LABS: BASO % 1.1 % (0-2.0); EOS % 5.7 % (0-4.5); HEMATOCRIT 34.8 % (32.4-45.2); HEMOGLOBIN 11.6 GM/dL (10.7-15.3); MCH 28.5 pg (25.7-33.7); MCHC 33.4 g/dl (32.0-36.0); MEAN CELL VOLUME 85.3 fl (80-96); MEAN PLT VOLUME 6.8 fl (7.5-11.1); MONO % 13.2 % (3.8-10.2); PLATELET COUNT 289 K/MM3 (134-434); RBC 4.07 M/mm3 (3.60-5.2); RDW 13.8 % (11.6-15.6); WHITE BLOOD COUNT 5.6 K/mm3 (4.0-10.0)
[2019-07-19 08:17] LABS: BLOOD UREA NITROGEN 14.4 mg/dL (7-18); CALCIUM 8.4 mg/dL (8.5-10.1); CREATININE 0.5 mg/dL (0.55-1.3); POTASSIUM 4.4 mmol/L (3.5-5.1)
[2019-07-19] MEDS ORDERED: PREGABALIN 100 MG CAPSULE ONE ×2 (09:23→20:08)
[2019-07-19] MEDS ORDERED: PREGABALIN 50 MG CAPSULE ONE ×2 (09:23→20:07)
[2019-07-19] MEDS ORDERED: DEXTROSE 5%-WATER - 50 ML IVPB ONE (09:24)
[2019-07-19] MEDS ORDERED: cefTRIAXone SODIUM 1 GM VIAL ONE (09:24)
[2019-07-19] MEDS: PREGABALIN PO SCH ×2 (09:45→22:15)
[2019-07-19] MEDS: PANTOPRAZOLE 40 MG TABLET PO SCH (09:45)
[2019-07-19] MEDS: VALSARTAN 160 MG TABLET (UD) PO SCH (09:45)
[2019-07-19] MEDS: CEFTRIAXONE 1 GM in DEXTROSE 5%-WATER - 50 ML IVPB SCH (09:46)
[2019-07-19] MEDS: SENNOSIDES 8.6MG TABLET (FP) PO SCH ×2 (09:47→22:16)
--- NOTE | 2019-07-19 11:31 | PN ---
Progress Note, Physician History of Present Illness: stable leg swelling improving pain still there - Current Medication List Current Medications: Active Medications Acetaminophen (Tylenol -) 650 mg PO Q6H PRN PRN Reason: PAIN LEVEL 4-10 Last Admin: 07/18/19 15:28 Dose: 650 mg Atorvastatin Calcium (Lipitor -) 10 mg PO HS [facility] Last Admin: 07/18/19 21:05 Dose: 10 mg Diltiazem HCl (Cardizem Cd -) 120 mg PO HS [facility] Last Admin: 07/18/19 21:05 Dose: 120 mg Ceftriaxone Sodium 1 gm/ (Dextrose) 50 mls @ 100 mls/hr IVPB DAILY [facility]; Protocol Last Admin: 07/19/19 09:46 Dose: 100 mls/hr Vancomycin HCl 1,500 mg/ (Dextrose) 500 mls @ 250 mls/hr IVPB Q24H [facility]; Protocol Last Admin: 07/18/19 17:09 Dose: 250 mls/hr Melatonin (Melatonin) 5 mg PO HS [facility] Last Admin: 07/18/19 21:05 Dose: 5 mg Non-Formulary Medication (Armodafinil [Armodafinil]) 1 tab PO DAILY [facility] Ondansetron HCl (Zofran Odt -) 4 mg SL Q8H PRN PRN Reason: NAUSEA Last Admin: 07/17/19 18:45 Dose: 4 mg Pantoprazole Sodium (Protonix -) 40 mg PO DAILY [facility] Last Admin: 07/19/19 09:45 Dose: 40 mg Pregabalin 200 mg/ Pregabalin (50 mg) 250 mg PO BID [facility] Last Admin: 07/19/19 09:45 Dose: 250 mg Rivaroxaban (Xarelto) 20 mg PO 1800 [facility] Last Admin: 07/18/19 17:11 Dose: 20 mg Senna (Senna -) 2 tab PO BID [facility] Last Admin: 07/19/19 09:47 Dose: 2 tab Tramadol HCl (Ultram -) 50 mg PO Q8H PRN PRN Reason: pain 6-10 Last Admin: 07/18/19 21:05 Dose: 50 mg Valsartan (Diovan -) 320 mg PO DAILY [facility] Last Admin: 07/19/19 09:45 Dose: 320 mg - Objective Vital Signs: Vital Signs Temperature 98 F 07/19/19 06:14 Pulse Rate 93 H 07/19/19 06:14 Respiratory Rate 07/19/19 06:14 Blood Pressure 117/81 07/19/19 06:14 O2 Sat by Pulse Oximetry (%) 98 07/18/19 21:00 Constitutional: Yes: Calm, Mild Distress Cardiovascular: Yes: S1, S2 Respiratory: Yes: Regular, CTA Bilaterally Gastrointestinal: Yes: Normal Bowel Sounds, Soft Musculoskeletal: Yes: WNL Extremities: Yes: Other Wound/Incision: Yes: Dressing Dry and Intact Neurological: Yes: Alert, Oriented Psychiatric: Yes: Alert, Oriented Labs: CBC, BMP 07/19/19 07:15 07/19/19 07:15 Assessment/Plan Problem List - Problems (1) Cellulitis Code(s): L03.90 - CELLULITIS, UNSPECIFIED Qualifiers: Site of cellulitis: extremity Site of cellulitis of extremity: lower extremity Laterality: left Qualified Code(s): L03.116 - Cellulitis of left lower limb (2) Afib Code(s): I48.91 - UNSPECIFIED ATRIAL FIBRILLATION (3) GERD (gastroesophageal reflux disease) Code(s): K21.9 - GASTRO-ESOPHAGEAL REFLUX DISEASE WITHOUT ESOPHAGITIS (4) HTN (hypertension) Code(s): I10 - ESSENTIAL (PRIMARY) HYPERTENSION (5) PVD (peripheral vascular disease) Code(s): I73.9 - PERIPHERAL VASCULAR DISEASE, UNSPECIFIED (6) Peripheral neuropathy Code(s): G62.9 - POLYNEUROPATHY, UNSPECIFIED Assessment/Plan LLE cellulitis -- still with warmth/erythema continue abx improving
[2019-07-19] MEDS ORDERED: PT OWN MED DRAWER 7, Y5N ONE (13:14)
[2019-07-19] MEDS: VANCOMYCIN HCL 1,500 MG in DEXTROSE 5%-WATER - 500 ML IVPB SCH (15:01)
[2019-07-19] MEDS: traMADol HCL 50 MG TABLET PO PRN (16:47)
[2019-07-19] MEDS: RIVAROXABAN 20 MG TABLET PO SCH (17:02)
--- NOTE | 2019-07-19 21:47 | PN ---
Progress Note, Physician History of Present Illness: Pt complains of pain in lower legs LT > RT - Current Medication List Current Medications: Active Medications Acetaminophen (Tylenol -) 650 mg PO Q6H PRN PRN Reason: PAIN LEVEL 4-10 Last Admin: 07/18/19 15:28 Dose: 650 mg Atorvastatin Calcium (Lipitor -) 10 mg PO HS [facility] Last Admin: 07/18/19 21:05 Dose: 10 mg Diltiazem HCl (Cardizem Cd -) 120 mg PO HS [facility] Last Admin: 07/18/19 21:05 Dose: 120 mg Ceftriaxone Sodium 1 gm/ (Dextrose) 50 mls @ 100 mls/hr IVPB DAILY [facility]; Protocol Last Admin: 07/19/19 09:46 Dose: 100 mls/hr Vancomycin HCl 1,500 mg/ (Dextrose) 500 mls @ 250 mls/hr IVPB Q24H [facility]; Protocol Last Admin: 07/19/19 15:01 Dose: 250 mls/hr Melatonin (Melatonin) 5 mg PO HS [facility] Last Admin: 07/18/19 21:05 Dose: 5 mg Non-Formulary Medication (Armodafinil [Armodafinil]) 1 tab PO DAILY [facility] Ondansetron HCl (Zofran Odt -) 4 mg SL Q8H PRN PRN Reason: NAUSEA Last Admin: 07/17/19 18:45 Dose: 4 mg Pantoprazole Sodium (Protonix -) 40 mg PO DAILY [facility] Last Admin: 07/19/19 09:45 Dose: 40 mg Pregabalin 200 mg/ Pregabalin (50 mg) 250 mg PO BID [facility] Last Admin: 07/19/19 09:45 Dose: 250 mg Rivaroxaban (Xarelto) 20 mg PO 1800 [facility] Last Admin: 07/19/19 17:02 Dose: 20 mg Senna (Senna -) 2 tab PO BID [facility] Last Admin: 07/19/19 09:47 Dose: 2 tab Tramadol HCl (Ultram -) 50 mg PO Q8H PRN PRN Reason: pain 6-10 Last Admin: 07/19/19 16:47 Dose: 50 mg Valsartan (Diovan -) 320 mg PO DAILY [facility] Last Admin: 07/19/19 09:45 Dose: 320 mg - Objective Vital Signs: Vital Signs Temperature 97.9 F 01/20/20 14:00 Pulse Rate 90 07/19/19 14:00 Respiratory Rate 20 07/19/19 14:00 Blood Pressure 109/77 07/19/19 14:00 O2 Sat by Pulse Oximetry (%) 98 07/19/19 09:00 Cardiovascular: Yes: WNL, Regular Rate and Rhythm Respiratory: Yes: WNL, Regular, CTA Bilaterally Gastrointestinal: Yes: WNL, Normal Bowel Sounds, Soft, Abdomen, Obese Extremities: Yes: Other (LLE erythema) Labs: CBC, BMP 07/19/19 07:15 07/19/19 07:15 Problem List - Problems (1) Cellulitis Assessment/Plan: Cont IV Vanco/ceftriaxone Code(s): L03.90 - CELLULITIS, UNSPECIFIED Qualifiers: Site of cellulitis: extremity Site of cellulitis of extremity: lower extremity Laterality: left Qualified Code(s): L03.116 - Cellulitis of left lower limb (2) HLD (hyperlipidemia) Assessment/Plan: Cont lipitor Code(s): E78.5 - HYPERLIPIDEMIA, UNSPECIFIED (3) Afib Assessment/Plan: Heart rate controlled Cont xarelto/cardizem Code(s): I48.91 - UNSPECIFIED ATRIAL FIBRILLATION (4) GERD (gastroesophageal reflux disease) Assessment/Plan: Cont protonix Code(s): K21.9 - GASTRO-ESOPHAGEAL REFLUX DISEASE WITHOUT ESOPHAGITIS (5) HTN (hypertension) Assessment/Plan: BP stable Cont valsartan/cardizem Code(s): I10 - ESSENTIAL (PRIMARY) HYPERTENSION (6) PVD (peripheral vascular disease) Code(s): I73.9 - PERIPHERAL VASCULAR DISEASE, UNSPECIFIED (7) Peripheral neuropathy Assessment/Plan: Cont tramadol/tyelnol Code(s): G62.9 - POLYNEUROPATHY, UNSPECIFIED
[2019-07-19] MEDS: ATORVASTATIN CA 10 MG TABLET (FP) PO SCH (22:16)
[2019-07-19] MEDS: MELATONIN 5 MG TABLETS PO SCH (22:16)
[2019-07-20] MEDS ORDERED: PREGABALIN 50 MG CAPSULE ONE ×2 (09:33→20:41)
[2019-07-20] MEDS ORDERED: PREGABALIN 100 MG CAPSULE ONE ×2 (09:33→20:41)
[2019-07-20] MEDS ORDERED: cefTRIAXone SODIUM 1 GM VIAL ONE (09:34)
[2019-07-20] MEDS ORDERED: DEXTROSE 5%-WATER - 50 ML IVPB ONE (09:34)
--- NOTE | 2019-07-20 10:17 | PN ---
Progress Note, Physician History of Present Illness: stable leg looks better - Current Medication List Current Medications: Active Medications Acetaminophen (Tylenol -) 650 mg PO Q6H PRN PRN Reason: PAIN LEVEL 4-10 Last Admin: 07/18/19 15:28 Dose: 650 mg Atorvastatin Calcium (Lipitor -) 10 mg PO HS [facility] Last Admin: 07/19/19 22:16 Dose: 10 mg Diltiazem HCl (Cardizem Cd -) 120 mg PO HS [facility] Last Admin: 07/19/19 22:16 Dose: 120 mg Ceftriaxone Sodium 1 gm/ (Dextrose) 50 mls @ 100 mls/hr IVPB DAILY [facility]; Protocol Last Admin: 07/19/19 09:46 Dose: 100 mls/hr Vancomycin HCl 1,500 mg/ (Dextrose) 500 mls @ 250 mls/hr IVPB Q24H [facility]; Protocol Last Admin: 07/19/19 15:01 Dose: 250 mls/hr Melatonin (Melatonin) 5 mg PO HS [facility] Last Admin: 07/19/19 22:16 Dose: 5 mg Non-Formulary Medication (Armodafinil [Armodafinil]) 1 tab PO DAILY [facility] Ondansetron HCl (Zofran Odt -) 4 mg SL Q8H PRN PRN Reason: NAUSEA Last Admin: 07/17/19 18:45 Dose: 4 mg Pantoprazole Sodium (Protonix -) 40 mg PO DAILY [facility] Last Admin: 07/19/19 09:45 Dose: 40 mg Pregabalin 200 mg/ Pregabalin (50 mg) 250 mg PO BID [facility] Last Admin: 07/19/19 22:15 Dose: 250 mg Rivaroxaban (Xarelto) 20 mg PO 1800 [facility] Last Admin: 07/19/19 17:02 Dose: 20 mg Senna (Senna -) 2 tab PO BID [facility] Last Admin: 07/19/19 22:16 Dose: 2 tab Valsartan (Diovan -) 320 mg PO DAILY [facility] Last Admin: 07/19/19 09:45 Dose: 320 mg - Objective Vital Signs: Vital Signs Temperature 98 F 07/20/19 06:44 Pulse Rate 83 07/20/19 06:44 Respiratory Rate 20 07/20/19 06:44 Blood Pressure 122/74 07/20/19 06:44 O2 Sat by Pulse Oximetry (%) 98 07/19/19 21:00 Constitutional: Yes: No Distress, Calm Cardiovascular: Yes: S1, S2 Respiratory: Yes: Regular, CTA Bilaterally Gastrointestinal: Yes: Normal Bowel Sounds, Soft Musculoskeletal: Yes: WNL Extremities: Yes: Other Integumentary: Yes: Erythema (improving) Neurological: Yes: Alert, Oriented Psychiatric: Yes: Alert, Oriented Labs: CBC, BMP 07/19/19 07:15 07/19/19 07:15 Assessment/Plan Problem List - Problems (1) Cellulitis Code(s): L03.90 - CELLULITIS, UNSPECIFIED Qualifiers: Site of cellulitis: extremity Site of cellulitis of extremity: lower extremity Laterality: left Qualified Code(s): L03.116 - Cellulitis of left lower limb (2) Afib Code(s): I48.91 - UNSPECIFIED ATRIAL FIBRILLATION (3) GERD (gastroesophageal reflux disease) Code(s): K21.9 - GASTRO-ESOPHAGEAL REFLUX DISEASE WITHOUT ESOPHAGITIS (4) HTN (hypertension) Code(s): I10 - ESSENTIAL (PRIMARY) HYPERTENSION (5) PVD (peripheral vascular disease) Code(s): I73.9 - PERIPHERAL VASCULAR DISEASE, UNSPECIFIED (6) Peripheral neuropathy Code(s): G62.9 - POLYNEUROPATHY, UNSPECIFIED Assessment/Plan LLE cellulitis improving will d/w podiatry
[2019-07-20] MEDS: SENNOSIDES 8.6MG TABLET (FP) PO SCH ×2 (11:04→21:15)
[2019-07-20] MEDS: VALSARTAN 160 MG TABLET (UD) PO SCH (11:05)
[2019-07-20] MEDS: PANTOPRAZOLE 40 MG TABLET PO SCH (11:05)
[2019-07-20] MEDS: PREGABALIN PO SCH ×2 (11:05→21:15)
[2019-07-20] MEDS: CEFTRIAXONE 1 GM in DEXTROSE 5%-WATER - 50 ML IVPB SCH (11:08)
[2019-07-20] MEDS: VANCOMYCIN HCL 1,500 MG in DEXTROSE 5%-WATER - 500 ML IVPB SCH (13:42)
[2019-07-20] MEDS: ACETAMINOPHEN 325 MG TABLET (FP) PO PRN ×2 (13:42→22:32)
[2019-07-20] MEDS: RIVAROXABAN 20 MG TABLET PO SCH (17:56)
[2019-07-20] MEDS: ATORVASTATIN CA 10 MG TABLET (FP) PO SCH (21:15)
[2019-07-20] MEDS: MELATONIN 5 MG TABLETS PO SCH (21:16)
--- NOTE | 2019-07-20 23:34 | PN ---
Progress Note, Physician - Current Medication List Current Medications: Active Medications Acetaminophen (Tylenol -) 650 mg PO Q6H PRN PRN Reason: PAIN LEVEL 4-10 Last Admin: 07/20/19 22:32 Dose: 650 mg Atorvastatin Calcium (Lipitor -) 10 mg PO HS [facility] Last Admin: 07/20/19 21:15 Dose: 10 mg Diltiazem HCl (Cardizem Cd -) 120 mg PO HS [facility] Last Admin: 07/20/19 21:16 Dose: 120 mg Ceftriaxone Sodium 1 gm/ (Dextrose) 50 mls @ 100 mls/hr IVPB DAILY [facility]; Protocol Last Admin: 07/20/19 11:08 Dose: 100 mls/hr Vancomycin HCl 1,500 mg/ (Dextrose) 500 mls @ 250 mls/hr IVPB Q24H [facility]; Protocol Last Admin: 07/20/19 13:42 Dose: 250 mls/hr Melatonin (Melatonin) 5 mg PO HS [facility] Last Admin: 07/20/19 21:16 Dose: 5 mg Non-Formulary Medication (Armodafinil [Armodafinil]) 1 tab PO DAILY [facility] Ondansetron HCl (Zofran Odt -) 4 mg SL Q8H PRN PRN Reason: NAUSEA Last Admin: 07/17/19 18:45 Dose: 4 mg Pantoprazole Sodium (Protonix -) 40 mg PO DAILY [facility] Last Admin: 07/20/19 11:05 Dose: 40 mg Pregabalin 200 mg/ Pregabalin (50 mg) 250 mg PO BID [facility] Last Admin: 07/20/19 21:15 Dose: 250 mg Rivaroxaban (Xarelto) 20 mg PO 1800 [facility] Last Admin: 07/20/19 17:56 Dose: 20 mg Senna (Senna -) 2 tab PO BID [facility] Last Admin: 07/20/19 21:15 Dose: 2 tab Valsartan (Diovan -) 320 mg PO DAILY [facility] Last Admin: 07/20/19 11:05 Dose: 320 mg - Objective Vital Signs: Vital Signs Temperature 97.5 F L 07/20/19 21:53 Pulse Rate 106 H 07/20/19 21:53 Respiratory Rate 20 07/20/19 21:53 Blood Pressure 128/77 07/20/19 21:53 O2 Sat by Pulse Oximetry (%) 98 01/21/20 20:12 Labs: CBC, BMP 07/19/19 07:15 07/19/19 07:15 Problem List - Problems (1) Cellulitis Code(s): L03.90 - CELLULITIS, UNSPECIFIED Qualifiers: Site of cellulitis: extremity Site of cellulitis of extremity: lower extremity Laterality: left Qualified Code(s): L03.116 - Cellulitis of left lower limb (2) HLD (hyperlipidemia) Code(s): E78.5 - HYPERLIPIDEMIA, UNSPECIFIED (3) Afib Code(s): I48.91 - UNSPECIFIED ATRIAL FIBRILLATION (4) GERD (gastroesophageal reflux disease) Code(s): K21.9 - GASTRO-ESOPHAGEAL REFLUX DISEASE WITHOUT ESOPHAGITIS (5) HTN (hypertension) Code(s): I10 - ESSENTIAL (PRIMARY) HYPERTENSION (6) PVD (peripheral vascular disease) Code(s): I73.9 - PERIPHERAL VASCULAR DISEASE, UNSPECIFIED (7) Peripheral neuropathy Code(s): G62.9 - POLYNEUROPATHY, UNSPECIFIED
--- NOTE | 2019-07-21 09:07 | PN ---
Progress Note, Physician History of Present Illness: stable no new issues - Current Medication List Current Medications: Active Medications Acetaminophen (Tylenol -) 650 mg PO Q6H PRN PRN Reason: PAIN LEVEL 4-10 Last Admin: 07/20/19 22:32 Dose: 650 mg Atorvastatin Calcium (Lipitor -) 10 mg PO HS [facility] Last Admin: 07/20/19 21:15 Dose: 10 mg Diltiazem HCl (Cardizem Cd -) 120 mg PO HS [facility] Last Admin: 07/20/19 21:16 Dose: 120 mg Ceftriaxone Sodium 1 gm/ (Dextrose) 50 mls @ 100 mls/hr IVPB DAILY [facility]; Protocol Last Admin: 07/20/19 11:08 Dose: 100 mls/hr Vancomycin HCl 1,500 mg/ (Dextrose) 500 mls @ 250 mls/hr IVPB Q24H [facility]; Protocol Last Admin: 07/20/19 13:42 Dose: 250 mls/hr Melatonin (Melatonin) 5 mg PO HS [facility] Last Admin: 07/20/19 21:16 Dose: 5 mg Non-Formulary Medication (Armodafinil [Armodafinil]) 1 tab PO DAILY [facility] Ondansetron HCl (Zofran Odt -) 4 mg SL Q8H PRN PRN Reason: NAUSEA Last Admin: 07/17/19 18:45 Dose: 4 mg Pantoprazole Sodium (Protonix -) 40 mg PO DAILY [facility] Last Admin: 07/20/19 11:05 Dose: 40 mg Pregabalin 200 mg/ Pregabalin (50 mg) 250 mg PO BID [facility] Last Admin: 07/20/19 21:15 Dose: 250 mg Rivaroxaban (Xarelto) 20 mg PO 1800 [facility] Last Admin: 07/20/19 17:56 Dose: 20 mg Senna (Senna -) 2 tab PO BID [facility] Last Admin: 07/20/19 21:15 Dose: 2 tab Valsartan (Diovan -) 320 mg PO DAILY [facility] Last Admin: 07/20/19 11:05 Dose: 320 mg - Objective Vital Signs: Vital Signs Temperature 97.8 F 07/21/19 06:24 Pulse Rate 89 07/21/19 06:24 Respiratory Rate 20 07/21/19 06:24 Blood Pressure 118/64 07/21/19 06:24 O2 Sat by Pulse Oximetry (%) 98 07/20/19 20:12 Constitutional: Yes: No Distress, Calm Cardiovascular: Yes: S1, S2 Respiratory: Yes: Regular, CTA Bilaterally Gastrointestinal: Yes: Normal Bowel Sounds, Soft Extremities: Yes: Erythema, Other Neurological: Yes: Alert, Oriented Psychiatric: Yes: Alert, Oriented Labs: CBC, BMP 07/19/19 07:15 07/19/19 07:15 Assessment/Plan Problem List - Problems (1) Cellulitis Code(s): L03.90 - CELLULITIS, UNSPECIFIED Qualifiers: Site of cellulitis: extremity Site of cellulitis of extremity: lower extremity Laterality: left Qualified Code(s): L03.116 - Cellulitis of left lower limb (2) Afib Code(s): I48.91 - UNSPECIFIED ATRIAL FIBRILLATION (3) GERD (gastroesophageal reflux disease) Code(s): K21.9 - GASTRO-ESOPHAGEAL REFLUX DISEASE WITHOUT ESOPHAGITIS (4) HTN (hypertension) Code(s): I10 - ESSENTIAL (PRIMARY) HYPERTENSION (5) PVD (peripheral vascular disease) Code(s): I73.9 - PERIPHERAL VASCULAR DISEASE, UNSPECIFIED (6) Peripheral neuropathy Code(s): G62.9 - POLYNEUROPATHY, UNSPECIFIED Assessment/Plan LLE cellulitis plan i think we can switch the patient to clinda and augmentin for 7 more days
[2019-07-21] MEDS ORDERED: cefTRIAXone SODIUM 1 GM VIAL ONE (10:35)
[2019-07-21] MEDS ORDERED: DEXTROSE 5%-WATER - 50 ML IVPB ONE (10:36)
[2019-07-21] MEDS ORDERED: PREGABALIN 50 MG CAPSULE ONE (10:57)
[2019-07-21] MEDS ORDERED: PREGABALIN 100 MG CAPSULE ONE (10:57)
[2019-07-21] MEDS: CEFTRIAXONE 1 GM in DEXTROSE 5%-WATER - 50 ML IVPB SCH (10:58)
[2019-07-21] MEDS: PREGABALIN PO SCH (10:58)
[2019-07-21] MEDS: SENNOSIDES 8.6MG TABLET (FP) PO SCH (10:58)
[2019-07-21] MEDS: PANTOPRAZOLE 40 MG TABLET PO SCH (10:59)
[2019-07-21] MEDS: VALSARTAN 160 MG TABLET (UD) PO SCH (10:59)
[2019-07-21] MEDS: ACETAMINOPHEN 325 MG TABLET (FP) PO PRN (12:00)
[2019-07-21] MEDS: VANCOMYCIN HCL 1,500 MG in DEXTROSE 5%-WATER - 500 ML IVPB SCH (14:12)
[2019-07-21 16:01] VITALS: BP 117/72; PULSE 98; TEMP 97.6
== END 2019-07-21 16:00 | disposition home health service (06) | DRG 603 ==
LOC: SUPCPDRO 10:38 → JER 10:38 → JERBED 12:05 → J8W 20:41
PROVIDERS: ADMIT Internal Medicine; ATTEND Internal Medicine
DX: L03.116 Cellulitis of left lower limb (principal); E87.1 Hypo-osmolality and hyponatremia; I48.91 Unspecified atrial fibrillation; E78.5 Hyperlipidemia, unspecified; I10 Essential (primary) hypertension; G47.33 Obstructive sleep apnea (adult) (pediatric); G62.9 Polyneuropathy, unspecified; K21.9 Gastro-esophageal reflux disease without esophagitis; I73.9 Peripheral vascular disease, unspecified; E66.9 Obesity, unspecified; Z68.32 Body mass index [BMI] 32.0-32.9, adult
CPT/HCPCS: 36415; 71045-TC-FY; 80048; 80053; 81003; 85025; 87040; 87086; 93005; 93010; 97116-GP; 97162-GP; 99284-25; G0463-25; G0480; J0131; Q0162

== ENCOUNTER 2019-08-23 16:39 | Inpatient (IN) | payer OTHER, BC ==
--- NOTE | 2019-08-23 16:56 | PDOC ---
Rapid Medical Evaluation Medical Evaluation: Allergies Allergy/AdvReac Type Severity Reaction Status Date / Time codeine Allergy Verified 05/20/19 13:17 morphine Allergy Verified 05/20/19 13:17 Sulfa (Sulfonamide Allergy Verified 05/20/19 13:17 Antibiotics) I have performed a brief in-person evaluation of this patient. The patient presents with a chief complaint of: sent by mechanical developer prover for LLE infection; patient noticed redness extending up to knee today and called doctor who advised her to come to ED Pertinent physical exam findings: +erythema and warmth of LLE; L foot wrapped I have ordered the following: Labs The patient will proceed to the ED for further evaluation. 08/23/19 16:53
[2019-08-23 19:40] LABS: BASO % 0.4 % (0-2.0); EOS % 0.3 % (0-4.5); HEMATOCRIT 36.5 % (32.4-45.2); HEMOGLOBIN 11.9 GM/dL (10.7-15.3); LYMPH % 5.3 % (8-40); MCH 28.1 pg (25.7-33.7); MCHC 32.7 g/dl (32.0-36.0); MEAN PLT VOLUME 7.7 fl (7.5-11.1); MONO % 8.5 % (3.8-10.2); NEUT % 85.5 % (42.8-82.8); PLATELET COUNT 262 K/MM3 (134-434); RBC 4.24 M/mm3 (3.60-5.2); RDW 14.3 % (11.6-15.6); WHITE BLOOD COUNT 11.2 K/mm3 (4.0-10.0)
[2019-08-23] MEDS ORDERED: VANCOMYCIN 1,000 MG in DEXTROSE 5%-WATER - 250 ML IVPB ONE (19:51)
[2019-08-23] MEDS ORDERED: PIPERACILLIN/TAZOB 4.5 GM 4.5 GM in DEXTROSE 5%-WATER 100 ML IVPB ONE (19:51)
[2019-08-23] MEDS ORDERED: ACETAMINOPHEN 1000 MG/100 ML VIAL (NON FORMULARY) IVPB ONE (19:53)
[2019-08-23 20:04] LABS: ALBUMIN 3.5 g/dl (3.4-5.0); BILIRUBIN,TOTAL 0.6 mg/dL (0.2-1); BLOOD UREA NITROGEN 10.6 mg/dL (7-18); CALCIUM 8.8 mg/dL (8.5-10.1); CREATININE 0.4 mg/dL (0.55-1.3); POTASSIUM 4.3 mmol/L (3.5-5.1); TOT PROT 6.9 g/dl (6.4-8.2)
--- NOTE | 2019-08-23 20:15 | PDOC ---
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 The patient states that she's had cellulitis in her LLE since February. She states that she is currently taking 300mg of clindamycin and is on day 2 of antibiotics and it has not improved. She denies fever, chills, nausea, vomiting, CP, SOB, numbness, tingling, weakness. She states that her foot has been oozing and is painful but denies other acute complaints. Past History - Past Medical History Allergies/Adverse Reactions: Allergies Allergy/AdvReac Type Severity Reaction Status Date / Time codeine Allergy Verified 08/23/19 16:57 morphine Allergy Verified 08/23/19 16:57 Sulfa (Sulfonamide Allergy Verified 08/23/19 16:57 Antibiotics) Home Medications: Ambulatory Orders Armodafinil 1 tab PO DAILY 02/23/18 Rivaroxaban [Xarelto -] 1 tab PO DAILY 02/23/18 Diltiazem HCl [Cartia Xt] 1 tab PO HS 05/20/19 Pravastatin Sodium 1 tab PO HS 05/20/19 Sennosides [Senna -] 2 tab PO BID 05/20/19 Telmisartan 1 tab PO HS 05/20/19 Melatonin 5 mg PO HS tab 05/25/19 Omeprazole 20 mg PO ACBK 07/17/19 Pregabalin [Lyrica -] 250 mg PO BID #1 capsule MDD 2 07/21/19 traMADol HCL [Ultram -] 50 mg PO Q8H PRN #30 tablet MDD 3 07/21/19 Anemia: No Asthma: No Cancer: Yes (melanoma on face) Cardiac Disorders: Yes (Afib on xarelto; PVD) CVA: No COPD: No CHF: No Dementia: No Diabetes: No GI Disorders: Yes (GERD) Disorders: No HTN: Yes Hypercholesterolemia: Yes Liver Disease: No Seizures: No Thyroid Disease: No - Surgical History Abdominal Surgery: No Appendectomy: Yes Cardiac Surgery: No Cholecystectomy: Yes Lung Surgery: No Neurologic Surgery: No Orthopedic Surgery: Yes (left total knee replacement 2018) - Immunization History Immunization Up to Date: No - Psycho Social/Smoking Cessation Hx Smoking History: Former smoker Have you smoked in the past 12 months: No If you are a former smoker, when did you quit?: over 50 years ago Information on smoking cessation initiated: No 'Breaking Loose' booklet given: 07/15/19 Hx Alcohol Use: No Drug/Substance Use Hx: No Substance Use Type: None Hx Substance Use Treatment: No Review of Systems - Review of Systems Able to Perform ROS?: Yes Comments:: 08/23/19 20:12 GENERAL/CONSTITUTIONAL: No fever or chills. No weakness. HEAD, EYES, EARS, NOSE AND THROAT: No change in vision. No ear pain or discharge. No sore throat. CARDIOVASCULAR: No chest pain, palpitations, or lightheadedness. RESPIRATORY: No cough, wheezing, shortness of breath, or hemoptysis. GASTROINTESTINAL: No abdominal pain, nausea, vomiting, diarrhea, or constipation. GENITOURINARY: No dysuria, frequency, hematuria, or change in urination. MUSCULOSKELETAL: No joint or muscle swelling or pain. No neck or back pain. SKIN: + for erythema and swelling in her LLE. NEUROLOGIC: No headache, numbness, tingling, focal weakness, loss of consciousness, or change in strength/sensation. Is the patient limited Italian proficient: No *Physical Exam - Vital Signs Last Vital Signs Temp Pulse Resp BP Pulse Ox 99.1 F 95 H 18 128/66 100 08/23/19 16:52 08/23/19 16:52 08/23/19 16:52 08/23/19 16:52 08/23/19 16:52 - Physical Exam 08/23/19 20:12 GENERAL: Well developed, well nourished. Awake and alert. No acute distress. HEENT: Normocephalic, atraumatic. Hearing grossly normal. Moist mucous membranes. PERRLA, EOMI. No conjunctival pallor. Sclera are non-icteric. NECK: Supple. Full ROM. No JVD. CARDIOVASCULAR: Regular rate and rhythm. No murmurs, rubs, or gallops. Distal pulses are 2+ and symmetric. PULMONARY: No evidence of respiratory distress. Lungs clear to auscultation bilaterally. No wheezing, rales, or rhonchi. ABDOMINAL: Soft. Non-tender. Non-distended. No rebound or guarding. GENITOURINARY: No CVA tenderness bilaterally. MUSCULOSKELETAL: Normal range of motion at all joints. No bony deformities or tenderness. EXTREMITIES: No cyanosis. No clubbing. 3+ pitting edema in b/l LE. LLE > RLE. Erythema and warm to touch. Erythema up to knee. SKIN: Warm and dry. Normal capillary refill. No rashes. No jaundice. NEUROLOGICAL: Alert, awake, appropriate. Cranial nerves 2-12 grossly intact. Normal speech. Gait is normal without ataxia. PSYCHIATRIC: Cooperative. Good eye contact. Appropriate mood and affect. ED Treatment Course - LABORATORY CBC & Chemistry Diagram: 08/23/19 18:49 02 18:49 - ADDITIONAL ORDERS Additional order review: Laboratory Results 08/23/19 18:49 Sodium 128 L Potassium 4.3 Chloride 93 L Carbon Dioxide 26 Anion Gap 9 BUN 10.6 Creatinine 0.4 L Est GFR (CKD-EPI)AfAm 116.44 Est GFR (CKD-EPI)NonAf 100.47 Random Glucose 94 Calcium 8.8 Total Bilirubin 0.6 AST 16 ALT 14 Alkaline Phosphatase 93 Total Protein 6.9 Albumin 3.5 08/23/19 18:49 RBC 4.24 MCV 86.0 MCHC 32.7 RDW 14.3 MPV 7.7 D Neutrophils % 85.5 H D Lymphocytes % 5.3 L D Monocytes % 8.5 Eosinophils % 0.3 D Basophils % 0.4 - RADIOLOGY Radiology Studies Ordered: Category Date Time Status DUPLEX VASCUL US-1 LEG [US] Stat Ultrasound 08/23/19 19:53 Ordered Medical Decision Making - Medical Decision Making 08/23/19 20:14 79F with MMP who presents with worsening LLE cellulitis, likely not responding to PO abx. Giving broad spectrum abx. Pt well appearing otherwise. Will obtain cultures and admit. 08/23/19 22:49 CBC shows slightly elevated WBC at 11.2 with CMP showing hyponatremia. Lactate negative. Pending US. Giving broad spectrum abx. 08/23/19 23:[address] Barakat for admission. Discharge - Discharge Information Problems reviewed: Yes Clinical Impression/Diagnosis: Cellulitis Qualifiers: Site of cellulitis: extremity Site of cellulitis of extremity: lower extremity Laterality: left Qualified Code(s): L03.116 - Cellulitis of left lower limb Condition: Guarded - Admission Yes - Follow up/Referral - Patient Discharge Instructions - Post Discharge Activity
[2019-08-23] MEDS ORDERED: PIPERACILLIN/TAZOB 4.5 GM 4.5 GM/100 ML BAG IVPB ONE (20:24)
[2019-08-23] MEDS ORDERED: ACETAMINOPHEN INJECTION 100 ML IVPB ONE (20:24)
[2019-08-23] MEDS ORDERED: VANCOMYCIN 1 GRAM (PRE-DOCKED) 1,000 MG/250 ML BAG IVPB ONE (20:25)
--- NOTE | 2019-08-23 22:30 | PDOC ---
Attending Attestation - Resident Resident Name: NickjamesJohn - ED Attending Attestation I have performed the following: I have examined & evaluated the patient, The case was reviewed & discussed with the resident, I agree w/resident's findings & plan, Exceptions are as noted - HPI HPI: 08/23/19 22:27 79 yo F wit h/o afib htn hld peripheral edema. nueropathy. arthritis, here with worsening foot wound left foot and leg swelling and redness. denies fever or chills. 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 went for two long walks and then noted a sore on top of her foot. since that time her left leg has become swollen, and red. does have mild pain in left foot. no h/o pe or dvt. - Physicial Exam PE: 08/23/19 22:28 awake alert lungs clear bilat heart irreg reg no mrg abd soft nt nd ext left lower ext with swelling erythema. edema. some bullae. left dorsum foot with yellowish moist wound max size over mcp jiont. nuero alert orientedx 3 - Medical Decision Making 08/23/19 22:29 79 yo F with mult med problem here with foot wound, and cellulitis. Heart Score/ECG Review #1 General ECG Interpretation: Normal Rate, Normal Intervals, No acute ischemic changes Compared to previous ECG there are: Other (afib wtih rate 87bpmTWI III, AVF)
[2019-08-24] MEDS ORDERED: PREGABALIN 25 MG CAPSULE PO ONE ×2 (05:18)
[2019-08-24] MEDS ORDERED: PREGABALIN 100 MG CAPSULE PO ONE (05:21)
[2019-08-24] MEDS ORDERED: traMADol HCL 50 MG TABLET PO ONE (05:22)
[2019-08-24] MEDS ORDERED: PREGABALIN 100 MG CAPSULE ONE ×3 (05:26→22:23)
[2019-08-24] MEDS ORDERED: traMADol HCL 50 MG TABLET ONE (05:26)
[2019-08-24] MEDS ORDERED: PT OWN MED DRAWER 7, Y5N ONE (08:57)
[2019-08-24] MEDS ORDERED: PREGABALIN 50 MG CAPSULE ONE ×2 (09:02→22:23)
[2019-08-24] MEDS ORDERED: PIPERACILLIN/TAZOB 3.375 GM 3.375 GM/50 ML BAG IVPB ONE (09:03)
[2019-08-24] MEDS ORDERED: SENNOSIDES 8.6MG TABLET (FP) PO ONE (09:03)
--- NOTE | 2019-08-24 09:40 | EKG ---
Test Reason : Blood Pressure : / mmHG Vent. Rate : 093 BPM Atrial Rate : 120 BPM P-R Int : 000 ms QRS Dur : 086 ms QT Int : 348 ms P-R-T Axes : 000 059 024 degrees QTc Int : 432 ms POOR DATA QUALITY, INTERPRETATION MAY BE ADVERSELY AFFECTED ATRIAL FIBRILLATION LOW VOLTAGE QRS CANNOT RULE OUT ANTERIOR INFARCT (CITED ON OR BEFORE 20-MAY-2019) ABNORMAL ECG WHEN COMPARED WITH ECG OF 15-JUL-2019 13:21, NO SIGNIFICANT CHANGE WAS FOUND Confirmed by Freddie Boone MD ([id number]) on 08/24/2019 9:40:10 AM Referred By: Confirmed By:Freddie Boone MD
[2019-08-24] MEDS: SENNOSIDES 8.6MG TABLET (FP) PO SCH ×2 (09:51→22:34)
[2019-08-24] MEDS: VANCOMYCIN 1 GM in D5W (PRE-DOCKED) 1,000 MG/250 ML IVPB SCH ×2 (09:51→22:33)
[2019-08-24] MEDS: PREGABALIN PO SCH ×2 (09:51→22:34)
[2019-08-24] MEDS ORDERED: PIPERACILLIN/TAZOB 3.375 GM 3.375 GM in DEXTROSE 5%-WATER - 50 ML IVPB SCH (10:00)
[2019-08-24] MEDS ORDERED: ARMODAFINIL PO SCH (10:00)
[2019-08-24] MEDS ORDERED: PREGABALIN 50 MG CAPSULE PO SCH (10:00)
--- NOTE | 2019-08-24 14:06 | CON.ID ---
Consult - Past Medical History [employer]CH[employer]IC GENERAL OPERATIONAL TEST: Yes: Peripheral Neuropathy Cardio/Vascular: Yes: AFIB, HTN, Hyperlipdemia - Alcohol/Substance Use Hx Alcohol Use: No - Smoking History Smoking history: Former smoker Have you smoked in the past 12 months: No If you are a former smoker, when did you quit?: over 50 years ago Home Medications - Allergies Allergies/Adverse Reactions: Allergies Allergy/AdvReac Type Severity Reaction Status Date / Time codeine Allergy Verified 08/23/19 16:57 morphine Allergy Verified 08/23/19 16:57 Sulfa (Sulfonamide Allergy Verified 08/23/19 16:57 Antibiotics) - Home Medications Home Medications: Ambulatory Orders Armodafinil 1 tab PO DAILY 02/23/18 Rivaroxaban [Xarelto -] 1 tab PO DAILY 02/23/18 Diltiazem HCl [Cartia Xt] 1 tab PO HS 05/20/19 Pravastatin Sodium 1 tab PO HS 05/20/19 Sennosides [Senna -] 2 tab PO BID 05/20/19 Telmisartan 1 tab PO HS 05/20/19 Melatonin 5 mg PO HS tab 05/25/19 Omeprazole 20 mg PO ACBK 07/17/19 Pregabalin [Lyrica -] 250 mg PO BID #1 capsule MDD 2 07/21/19 traMADol HCL [Ultram -] 50 mg PO Q8H PRN #30 tablet MDD 3 07/21/19 Physical Exam Vital Signs: Vital Signs Temperature 99.2 F 08/24/19 12:39 Pulse Rate 89 08/24/19 12:39 Respiratory Rate 20 08/24/19 12:39 Blood Pressure 121/75 08/24/19 12:39 O2 Sat by Pulse Oximetry (%) 96 08/24/19 12:39 Labs: CBC, BMP 08/23/19 18:49 08/23/19 18:49
[2019-08-24] MEDS: traMADol HCL 50 MG TABLET PO PRN ×2 (14:33→22:35)
--- NOTE | 2019-08-24 14:55 | EKG ---
Test Reason : Blood Pressure : / mmHG Vent. Rate : 087 BPM Atrial Rate : 234 BPM P-R Int : 000 ms QRS Dur : 086 ms QT Int : 350 ms P-R-T Axes : 000 073 019 degrees QTc Int : 421 ms ATRIAL FIBRILLATION LOW VOLTAGE QRS CANNOT RULE OUT ANTERIOR INFARCT (CITED ON OR BEFORE 20-MAY-2019) ABNORMAL ECG WHEN COMPARED WITH ECG OF 23-AUG-2019 21:51, NO SIGNIFICANT CHANGE WAS FOUND Confirmed by Freddie Boone MD ([id number]) on 08/24/2019 2:55:01 PM Referred By: Confirmed By:Freddie Boone MD
[2019-08-24] MEDS ORDERED: DEXTROSE 5%-WATER - 50 ML IVPB ONE (18:10)
[2019-08-24] MEDS ORDERED: PIPERACILLIN/TAZOBACTAM 3.375 GM VIAL IVPB ONE (18:10)
[2019-08-24] MEDS: PIPERACILLIN/TAZOB 3.375 GM 3.375 GM in DEXTROSE 5%-WATER - 50 ML IVPB SCH (18:42)
[2019-08-24] MEDS: RIVAROXABAN 20 MG TABLET PO SCH (19:57)
[2019-08-24] MEDS: MELATONIN 5 MG TABLETS PO SCH (22:34)
--- NOTE | 2019-08-24 23:38 | HP ---
Admitting History and Physical - Admission History of Present Illness: Pt is a 79 y/o female with a PMH of HTN, HLD, atrial fibrillation, chronic lower extremity neuropathy, OSAand chronic cellulitis. 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 The patient states that she's had cellulitis in her LLE since February. She states that she is currently taking 300mg of clindamycin and is on day 2 of antibiotics and it has not improved. She denies fever, chills, nausea, vomiting, CP, SOB, numbness, tingling, weakness. She states that her foot has been oozing and is painful but denies other acute complaints. - Past Medical History [employer]: Yes: Peripheral Neuropathy Cardiovascular: Yes: AFIB, HTN, Hyperlipdemia - Smoking History Smoking history: Former smoker Have you smoked in the past 12 months: No If you are a former smoker, when did you quit?: over 50 years ago - Alcohol/Substance Use Hx Alcohol Use: No Home Medications - Allergies Allergies/Adverse Reactions: Allergies Allergy/AdvReac Type Severity Reaction Status Date / Time codeine Allergy Verified 08/23/19 16:57 morphine Allergy Verified 08/23/19 16:57 Sulfa (Sulfonamide Allergy Verified 08/23/19 16:57 Antibiotics) - Home Medications Home Medications: Ambulatory Orders Armodafinil 1 tab PO DAILY 02/23/18 Rivaroxaban [Xarelto -] 1 tab PO DAILY 02/23/18 Diltiazem HCl [Cartia Xt] 1 tab PO HS 05/20/19 Pravastatin Sodium 1 tab PO HS 05/20/19 Sennosides [Senna -] 2 tab PO BID 05/20/19 Telmisartan 1 tab PO HS 05/20/19 Melatonin 5 mg PO HS tab 05/25/19 Omeprazole 20 mg PO ACBK 07/17/19 Pregabalin [Lyrica -] 250 mg PO BID #1 capsule MDD 2 07/21/19 traMADol HCL [Ultram -] 50 mg PO Q8H PRN #30 tablet MDD 3 07/21/19 Family Medical History Family History: Unremarkable Review of Systems - Review of Systems Constitutional: reports: No Symptoms Eyes: reports: No Symptoms HENT: reports: No Symptoms Neck: reports: No Symptoms Cardiovascular: reports: No Symptoms Respiratory: reports: No Symptoms Gastrointestinal: reports: No Symptoms Genitourinary: reports: No Symptoms Physical Examination Vital Signs: Vital Signs Temperature 99.3 F 08/24/19 18:00 Pulse Rate 111 H 08/24/19 18:00 Respiratory Rate 20 08/24/19 18:00 Blood Pressure 147/82 08/24/19 18:00 O2 Sat by Pulse Oximetry (%) 96 08/24/19 15:01 Constitutional: Yes: Obese Eyes: Yes: WNL HENT: Yes: WNL Neck: Yes: WNL, Supple Cardiovascular: Yes: WNL, Regular Rate and Rhythm Respiratory: Yes: WNL, Regular, CTA Bilaterally Gastrointestinal: Yes: WNL, Normal Bowel Sounds, Soft, Abdomen, Obese Extremities: Yes: Other (LLE w/ erythema) Edema: Yes Neurological: Yes: WNL, Alert, Oriented ...Motor Strength: WNL Labs: CBC, BMP 08/23/19 18:49 08/23/19 18:49 Problem List - Problems (1) Cellulitis Assessment/Plan: Cont IV antibxs Code(s): L03.90 - CELLULITIS, UNSPECIFIED Qualifiers: Site of cellulitis: extremity Site of cellulitis of extremity: lower extremity Laterality: left Qualified Code(s): L03.116 - Cellulitis of left lower limb (2) Afib Assessment/Plan: Cont xarelto Heart rate controlled Code(s): I48.91 - UNSPECIFIED ATRIAL FIBRILLATION (3) HTN (hypertension) Code(s): I10 - ESSENTIAL (PRIMARY) HYPERTENSION (4) GERD (gastroesophageal reflux disease) Code(s): K21.9 - GASTRO-ESOPHAGEAL REFLUX DISEASE WITHOUT ESOPHAGITIS (5) PVD (peripheral vascular disease) Code(s): I73.9 - PERIPHERAL VASCULAR DISEASE, UNSPECIFIED (6) Peripheral neuropathy Code(s): G62.9 - POLYNEUROPATHY, UNSPECIFIED (7) HLD (hyperlipidemia) Code(s): E78.5 - HYPERLIPIDEMIA, UNSPECIFIED
[2019-08-25] MEDS ORDERED: PIPERACILLIN/TAZOBACTAM 3.375 GM VIAL IVPB ONE ×3 (02:52→17:31)
[2019-08-25] MEDS ORDERED: DEXTROSE 5%-WATER - 50 ML IVPB ONE ×3 (02:52→17:31)
[2019-08-25] MEDS: PIPERACILLIN/TAZOB 3.375 GM 3.375 GM in DEXTROSE 5%-WATER - 50 ML IVPB SCH ×3 (03:00→17:40)
[2019-08-25] MEDS: traMADol HCL 50 MG TABLET PO PRN ×3 (06:46→21:46)
[2019-08-25] MEDS ORDERED: PREGABALIN 50 MG CAPSULE ONE ×2 (10:49→21:33)
[2019-08-25] MEDS ORDERED: PREGABALIN 100 MG CAPSULE ONE ×2 (10:50→21:34)
[2019-08-25] MEDS: PREGABALIN PO SCH ×2 (11:26→21:47)
[2019-08-25] MEDS: SENNOSIDES 8.6MG TABLET (FP) PO SCH ×2 (11:27→21:45)
--- NOTE | 2019-08-25 13:50 | PN ---
Progress Note, Physician History of Present Illness: stable no new issues - Current Medication List Current Medications: Active Medications Diltiazem HCl (Cardizem Cd -) 120 mg PO HS [facility] Last Admin: 08/24/19 22:34 Dose: 120 mg Piperacillin Sod/Tazobactam (Sod 3.375 gm/ Dextrose) 50 mls @ 100 mls/hr IVPB Q8H-IV [facility]; Protocol Last Admin: 08/25/19 13:48 Dose: 100 mls/hr Melatonin (Melatonin) 5 mg PO HS [facility] Last Admin: 08/24/19 22:34 Dose: 5 mg Non-Formulary Medication (Armodafinil [Armodafinil]) 1 tab PO DAILY [facility] Pregabalin 200 mg/ Pregabalin (50 mg) 250 mg PO BID [facility] Last Admin: 08/25/19 11:26 Dose: 250 mg Rivaroxaban (Xarelto) 20 mg PO 1800 [facility] Last Admin: 08/24/19 19:57 Dose: 20 mg Senna (Senna -) 2 tab PO BID [facility] Last Admin: 08/25/19 11:27 Dose: 2 tab Tramadol HCl (Ultram -) 50 mg PO Q8H PRN PRN Reason: pain 6-10 Last Admin: 08/25/19 06:46 Dose: 50 mg Vancomycin HCl (Vancomycin (Pre-Docked)) 1,000 mg IVPB BID [facility]; Protocol - Objective Vital Signs: Vital Signs Temperature 98.6 F 08/25/19 08:39 Pulse Rate 105 H 08/25/19 08:39 Respiratory Rate 20 08/25/19 08:39 Blood Pressure 139/71 08/25/19 08:39 O2 Sat by Pulse Oximetry (%) 95 08/25/19 08:39 Constitutional: Yes: No Distress, Calm Cardiovascular: Yes: S1, S2 Respiratory: Yes: Regular, CTA Bilaterally Gastrointestinal: Yes: Normal Bowel Sounds, Soft Musculoskeletal: Yes: WNL Extremities: Yes: Other Wound/Incision: Yes: Other Neurological: Yes: Alert, Oriented Labs: CBC, BMP 08/23/19 18:49 08/23/19 18:49 Assessment/Plan Problem List - Problems (1) Cellulitis Code(s): L03.90 - CELLULITIS, UNSPECIFIED Qualifiers: Site of cellulitis: extremity Site of cellulitis of extremity: lower extremity Laterality: left Qualified Code(s): L03.116 - Cellulitis of left lower limb (2) Afib Code(s): I48.91 - UNSPECIFIED ATRIAL FIBRILLATION (3) HTN (hypertension) Code(s): I10 - ESSENTIAL (PRIMARY) HYPERTENSION (4) GERD (gastroesophageal reflux disease) Code(s): K21.9 - GASTRO-ESOPHAGEAL REFLUX DISEASE WITHOUT ESOPHAGITIS (5) PVD (peripheral vascular disease) Code(s): I73.9 - PERIPHERAL VASCULAR DISEASE, UNSPECIFIED (6) Peripheral neuropathy Code(s): G62.9 - POLYNEUROPATHY, UNSPECIFIED (7) HLD (hyperlipidemia) Code(s): E78.5 - HYPERLIPIDEMIA, UNSPECIFIED plan continue abx elevation of the leg wound care
[2019-08-25] MEDS: RIVAROXABAN 20 MG TABLET PO SCH (17:39)
[2019-08-25] MEDS: MELATONIN 5 MG TABLETS PO SCH (21:46)
--- NOTE | 2019-08-25 23:28 | PN ---
Progress Note, Physician - Current Medication List Current Medications: Active Medications Diltiazem HCl (Cardizem Cd -) 120 mg PO HS [facility] Last Admin: 08/25/19 21:47 Dose: 120 mg Piperacillin Sod/Tazobactam (Sod 3.375 gm/ Dextrose) 50 mls @ 100 mls/hr IVPB Q8H-IV [facility]; Protocol Last Admin: 08/25/19 17:40 Dose: 100 mls/hr Melatonin (Melatonin) 5 mg PO HS [facility] Last Admin: 08/25/19 21:46 Dose: 5 mg Non-Formulary Medication (Armodafinil [Armodafinil]) 1 tab PO DAILY [facility] Pregabalin 200 mg/ Pregabalin (50 mg) 250 mg PO BID [facility] Last Admin: 08/25/19 21:47 Dose: 250 mg Rivaroxaban (Xarelto) 20 mg PO 1800 [facility] Last Admin: 08/25/19 17:39 Dose: 20 mg Senna (Senna -) 2 tab PO BID [facility] Last Admin: 08/25/19 21:45 Dose: 2 tab Tramadol HCl (Ultram -) 50 mg PO Q6H PRN PRN Reason: pain 6-10 Last Admin: 08/25/19 21:46 Dose: 50 mg Vancomycin HCl (Vancomycin (Pre-Docked)) 1,000 mg IVPB BID [facility]; Protocol - Objective Vital Signs: Vital Signs Temperature 98.6 F 08/25/19 18:00 Pulse Rate 111 H 08/25/19 18:00 Respiratory Rate 20 08/25/19 18:00 Blood Pressure 125/74 08/25/19 18:00 O2 Sat by Pulse Oximetry (%) 95 08/25/19 08:39 Labs: CBC, BMP 08/23/19 18:49 08/23/19 18:49 Problem List - Problems (1) Cellulitis Code(s): L03.90 - CELLULITIS, UNSPECIFIED Qualifiers: Site of cellulitis: extremity Site of cellulitis of extremity: lower extremity Laterality: left Qualified Code(s): L03.116 - Cellulitis of left lower limb (2) Afib Code(s): I48.91 - UNSPECIFIED ATRIAL FIBRILLATION (3) HTN (hypertension) Code(s): I10 - ESSENTIAL (PRIMARY) HYPERTENSION (4) GERD (gastroesophageal reflux disease) Code(s): K21.9 - GASTRO-ESOPHAGEAL REFLUX DISEASE WITHOUT ESOPHAGITIS (5) PVD (peripheral vascular disease) Code(s): I73.9 - PERIPHERAL VASCULAR DISEASE, UNSPECIFIED (6) Peripheral neuropathy Code(s): G62.9 - POLYNEUROPATHY, UNSPECIFIED (7) HLD (hyperlipidemia) Code(s): E78.5 - HYPERLIPIDEMIA, UNSPECIFIED
[2019-08-26] MEDS ORDERED: DEXTROSE 5%-WATER - 50 ML IVPB ONE ×3 (02:30→17:07)
[2019-08-26] MEDS ORDERED: PIPERACILLIN/TAZOBACTAM 3.375 GM VIAL IVPB ONE ×3 (02:30→17:07)
[2019-08-26] MEDS: PIPERACILLIN/TAZOB 3.375 GM 3.375 GM in DEXTROSE 5%-WATER - 50 ML IVPB SCH ×3 (03:24→18:18)
[2019-08-26 08:11] LABS: BASO % 1.2 % (0-2.0); EOS % 3.7 % (0-4.5); HEMATOCRIT 33.8 % (32.4-45.2); HEMOGLOBIN 11.3 GM/dL (10.7-15.3); LYMPH % 8.2 % (8-40); MCH 28.5 pg (25.7-33.7); MCHC 33.4 g/dl (32.0-36.0); MEAN CELL VOLUME 85.5 fl (80-96); MEAN PLT VOLUME 7.3 fl (7.5-11.1); MONO % 14.2 % (3.8-10.2); NEUT % 72.7 % (42.8-82.8); PLATELET COUNT 286 K/MM3 (134-434); RBC 3.95 M/mm3 (3.60-5.2); RDW 14.3 % (11.6-15.6); WHITE BLOOD COUNT 7.7 K/mm3 (4.0-10.0)
[2019-08-26 09:08] LABS: ALBUMIN 2.6 g/dl (3.4-5.0); BILIRUBIN,TOTAL 0.3 mg/dL (0.2-1); BLOOD UREA NITROGEN 9.8 mg/dL (7-18); CALCIUM 8.3 mg/dL (8.5-10.1); CREATININE 0.4 mg/dL (0.55-1.3); POTASSIUM 4.3 mmol/L (3.5-5.1); TOT PROT 5.9 g/dl (6.4-8.2)
--- NOTE | 2019-08-26 10:15 | PN ---
Progress Note, Physician History of Present Illness: leg still very red and tender - Current Medication List Current Medications: Active Medications Diltiazem HCl (Cardizem Cd -) 120 mg PO HS [facility] Last Admin: 08/25/19 21:47 Dose: 120 mg Piperacillin Sod/Tazobactam (Sod 3.375 gm/ Dextrose) 50 mls @ 100 mls/hr IVPB Q8H-IV [facility]; Protocol Last Admin: 08/26/19 03:24 Dose: 100 mls/hr Melatonin (Melatonin) 5 mg PO HS [facility] Last Admin: 08/25/19 21:46 Dose: 5 mg Non-Formulary Medication (Armodafinil [Armodafinil]) 1 tab PO DAILY [facility] Pregabalin 200 mg/ Pregabalin (50 mg) 250 mg PO BID [facility] Last Admin: 08/25/19 21:47 Dose: 250 mg Rivaroxaban (Xarelto) 20 mg PO 1800 [facility] Last Admin: 08/25/19 17:39 Dose: 20 mg Senna (Senna -) 2 tab PO BID [facility] Last Admin: 08/25/19 21:45 Dose: 2 tab Tramadol HCl (Ultram -) 50 mg PO Q6H PRN PRN Reason: pain 6-10 Last Admin: 08/25/19 21:46 Dose: 50 mg Vancomycin HCl (Vancomycin (Pre-Docked)) 1,000 mg IVPB BID [facility]; Protocol - Objective Vital Signs: Vital Signs Temperature 98.2 F 08/26/19 06:00 Pulse Rate 91 H 08/26/19 06:00 Respiratory Rate 20 08/26/19 06:00 Blood Pressure 129/67 08/26/19 06:00 O2 Sat by Pulse Oximetry (%) 93 L 08/25/19 21:00 Constitutional: Yes: Calm, Mild Distress Cardiovascular: Yes: S1, S2 Respiratory: Yes: Regular, CTA Bilaterally Gastrointestinal: Yes: Normal Bowel Sounds, Soft Musculoskeletal: Yes: Other Extremities: Yes: Other Integumentary: Yes: Erythema, Other Neurological: Yes: Alert, Oriented Psychiatric: Yes: Alert, Oriented Labs: CBC, BMP 08/26/19 07:33 08/26/19 07:33 Assessment/Plan Problem List - Problems (1) Cellulitis Code(s): L03.90 - CELLULITIS, UNSPECIFIED Qualifiers: Site of cellulitis: extremity Site of cellulitis of extremity: lower extremity Laterality: left Qualified Code(s): L03.116 - Cellulitis of left lower limb (2) Afib Code(s): I48.91 - UNSPECIFIED ATRIAL FIBRILLATION (3) HTN (hypertension) Code(s): I10 - ESSENTIAL (PRIMARY) HYPERTENSION (4) GERD (gastroesophageal reflux disease) Code(s): K21.9 - GASTRO-ESOPHAGEAL REFLUX DISEASE WITHOUT ESOPHAGITIS (5) PVD (peripheral vascular disease) Code(s): I73.9 - PERIPHERAL VASCULAR DISEASE, UNSPECIFIED (6) Peripheral neuropathy Code(s): G62.9 - POLYNEUROPATHY, UNSPECIFIED (7) HLD (hyperlipidemia) Code(s): E78.5 - HYPERLIPIDEMIA, UNSPECIFIED plan continue abx elevation of the leg wound care
[2019-08-26] MEDS ORDERED: PREGABALIN 50 MG CAPSULE ONE ×3 (10:19→21:37)
[2019-08-26] MEDS ORDERED: PREGABALIN 100 MG CAPSULE ONE ×3 (10:19→21:40)
[2019-08-26] MEDS: PREGABALIN PO SCH ×2 (10:51→23:13)
[2019-08-26] MEDS: traMADol HCL 50 MG TABLET PO PRN ×2 (10:51→18:25)
[2019-08-26] MEDS: SENNOSIDES 8.6MG TABLET (FP) PO SCH ×2 (10:57→22:15)
[2019-08-26] MEDS: VANCOMYCIN 1 GM in D5W (PRE-DOCKED) 1,000 MG/250 ML IVPB SCH (11:41)
[2019-08-26] MEDS: VANCOMYCIN HCL 1,250 MG in DEXTROSE 5%-WATER - 250 ML IVPB SCH (13:59)
[2019-08-26] MEDS: RIVAROXABAN 20 MG TABLET PO SCH (17:17)
[2019-08-26] MEDS: MELATONIN 5 MG TABLETS PO SCH (22:15)
--- NOTE | 2019-08-26 23:22 | PN ---
Progress Note, Physician - Current Medication List Current Medications: Active Medications Diltiazem HCl (Cardizem Cd -) 120 mg PO HS [facility] Last Admin: 08/26/19 22:14 Dose: 120 mg Piperacillin Sod/Tazobactam (Sod 3.375 gm/ Dextrose) 50 mls @ 100 mls/hr IVPB Q8H-IV [facility]; Protocol Last Admin: 08/26/19 18:18 Dose: 100 mls/hr Vancomycin HCl 1,250 mg/ (Dextrose) 250 mls @ 250 mls/2 hr IVPB Q24H [facility]; Protocol Last Admin: 08/26/19 13:59 Dose: 250 mls/2 hr Melatonin (Melatonin) 5 mg PO HS [facility] Last Admin: 08/26/19 22:15 Dose: 5 mg Non-Formulary Medication (Armodafinil [Armodafinil]) 1 tab PO DAILY [facility] Pregabalin 200 mg/ Pregabalin (50 mg) 250 mg PO BID [facility] Last Admin: 08/26/19 23:13 Dose: 250 mg Rivaroxaban (Xarelto) 20 mg PO 1800 [facility] Last Admin: 08/26/19 17:17 Dose: 20 mg Senna (Senna -) 2 tab PO BID [facility] Last Admin: 08/26/19 22:15 Dose: 2 tab Tramadol HCl (Ultram -) 50 mg PO Q6H PRN PRN Reason: pain 6-10 Last Admin: 08/26/19 18:25 Dose: 50 mg - Objective Vital Signs: Vital Signs Temperature 97.7 F 08/26/19 18:00 Pulse Rate 97 H 08/26/19 18:00 Respiratory Rate 20 08/26/19 18:00 Blood Pressure 128/66 08/26/19 18:00 O2 Sat by Pulse Oximetry (%) 97 08/26/19 09:00 Labs: CBC, BMP 08/26/19 07:33 08/26/19 07:33 Problem List - Problems (1) Cellulitis Code(s): L03.90 - CELLULITIS, UNSPECIFIED Qualifiers: Site of cellulitis: extremity Site of cellulitis of extremity: lower extremity Laterality: left Qualified Code(s): L03.116 - Cellulitis of left lower limb (2) Afib Code(s): I48.91 - UNSPECIFIED ATRIAL FIBRILLATION (3) HTN (hypertension) Code(s): I10 - ESSENTIAL (PRIMARY) HYPERTENSION (4) GERD (gastroesophageal reflux disease) Code(s): K21.9 - GASTRO-ESOPHAGEAL REFLUX DISEASE WITHOUT ESOPHAGITIS (5) PVD (peripheral vascular disease) Code(s): I73.9 - PERIPHERAL VASCULAR DISEASE, UNSPECIFIED (6) Peripheral neuropathy Code(s): G62.9 - POLYNEUROPATHY, UNSPECIFIED (7) HLD (hyperlipidemia) Code(s): E78.5 - HYPERLIPIDEMIA, UNSPECIFIED
[2019-08-27] MEDS ORDERED: PIPERACILLIN/TAZOBACTAM 3.375 GM VIAL IVPB ONE ×3 (01:43→18:16)
[2019-08-27] MEDS ORDERED: DEXTROSE 5%-WATER - 50 ML IVPB ONE ×3 (01:44→18:16)
[2019-08-27] MEDS: PIPERACILLIN/TAZOB 3.375 GM 3.375 GM in DEXTROSE 5%-WATER - 50 ML IVPB SCH ×3 (02:03→18:25)
[2019-08-27] MEDS: VANCOMYCIN 1 GM in D5W (PRE-DOCKED) 1,000 MG/250 ML IVPB SCH ×3 (02:58→03:00)
[2019-08-27] MEDS: traMADol HCL 50 MG TABLET PO PRN ×3 (05:45→18:24)
[2019-08-27] MEDS ORDERED: PREGABALIN 100 MG CAPSULE ONE ×2 (09:27→22:39)
[2019-08-27] MEDS ORDERED: PREGABALIN 50 MG CAPSULE ONE ×2 (09:27→22:38)
[2019-08-27] MEDS: SENNOSIDES 8.6MG TABLET (FP) PO SCH ×2 (09:37→23:08)
[2019-08-27] MEDS: PREGABALIN PO SCH ×2 (09:37→23:07)
--- NOTE | 2019-08-27 12:27 | PN ---
Progress Note, Physician History of Present Illness: stable no new issues - Current Medication List Current Medications: Active Medications Diltiazem HCl (Cardizem Cd -) 120 mg PO HS [facility] Last Admin: 08/26/19 22:14 Dose: 120 mg Piperacillin Sod/Tazobactam (Sod 3.375 gm/ Dextrose) 50 mls @ 100 mls/hr IVPB Q8H-IV [facility]; Protocol Last Admin: 08/27/19 09:37 Dose: 100 mls/hr Vancomycin HCl 1,250 mg/ (Dextrose) 250 mls @ 250 mls/2 hr IVPB Q24H [facility]; Protocol Last Admin: 08/26/19 13:59 Dose: 250 mls/2 hr Melatonin (Melatonin) 5 mg PO HS [facility] Last Admin: 08/26/19 22:15 Dose: 5 mg Pregabalin 200 mg/ Pregabalin (50 mg) 250 mg PO BID [facility] Last Admin: 08/27/19 09:37 Dose: 250 mg Rivaroxaban (Xarelto) 20 mg PO 1800 [facility] Last Admin: 08/26/19 17:17 Dose: 20 mg Senna (Senna -) 2 tab PO BID [facility] Last Admin: 08/27/19 09:37 Dose: 2 tab Tramadol HCl (Ultram -) 50 mg PO Q6H PRN PRN Reason: pain 6-10 Last Admin: 08/27/19 12:02 Dose: 50 mg - Objective Vital Signs: Vital Signs Temperature 98.2 F 08/27/19 09:48 Pulse Rate 96 H 08/27/19 09:48 Respiratory Rate 18 08/27/19 09:48 Blood Pressure 126/68 08/27/19 09:48 O2 Sat by Pulse Oximetry (%) 97 08/26/19 21:00 Constitutional: Yes: No Distress, Calm Cardiovascular: Yes: S1, S2 Respiratory: Yes: Regular, CTA Bilaterally Gastrointestinal: Yes: Normal Bowel Sounds, Soft Musculoskeletal: Yes: WNL Extremities: Yes: Other Integumentary: Yes: Erythema, Venous Stasis Changes, Other Psychiatric: Yes: Alert, Oriented Labs: CBC, BMP 08/26/19 07:33 08/26/19 07:33 Assessment/Plan Problem List - Problems (1) Cellulitis Code(s): L03.90 - CELLULITIS, UNSPECIFIED Qualifiers: Site of cellulitis: extremity Site of cellulitis of extremity: lower extremity Laterality: left Qualified Code(s): L03.116 - Cellulitis of left lower limb (2) Afib Code(s): I48.91 - UNSPECIFIED ATRIAL FIBRILLATION (3) HTN (hypertension) Code(s): I10 - ESSENTIAL (PRIMARY) HYPERTENSION (4) GERD (gastroesophageal reflux disease) Code(s): K21.9 - GASTRO-ESOPHAGEAL REFLUX DISEASE WITHOUT ESOPHAGITIS (5) PVD (peripheral vascular disease) Code(s): I73.9 - PERIPHERAL VASCULAR DISEASE, UNSPECIFIED (6) Peripheral neuropathy Code(s): G62.9 - POLYNEUROPATHY, UNSPECIFIED (7) HLD (hyperlipidemia) Code(s): E78.5 - HYPERLIPIDEMIA, UNSPECIFIED plan continue abx elevation of the leg wound care
[2019-08-27] MEDS: VANCOMYCIN HCL 1,250 MG in DEXTROSE 5%-WATER - 250 ML IVPB SCH (15:01)
[2019-08-27] MEDS: RIVAROXABAN 20 MG TABLET PO SCH (18:25)
--- NOTE | 2019-08-27 22:50 | PN ---
Progress Note, Physician History of Present Illness: Pt still complains of pain to LLE - Current Medication List Current Medications: Active Medications Diltiazem HCl (Cardizem Cd -) 120 mg PO HS [facility] Last Admin: 08/26/19 22:14 Dose: 120 mg Piperacillin Sod/Tazobactam (Sod 3.375 gm/ Dextrose) 50 mls @ 100 mls/hr IVPB Q8H-IV [facility]; Protocol Last Admin: 08/27/19 18:25 Dose: 100 mls/hr Vancomycin HCl 1,250 mg/ (Dextrose) 250 mls @ 250 mls/2 hr IVPB Q24H [facility]; Protocol Last Admin: 08/27/19 15:01 Dose: 250 mls/2 hr Melatonin (Melatonin) 5 mg PO HS [facility] Last Admin: 08/26/19 22:15 Dose: 5 mg Pregabalin 200 mg/ Pregabalin (50 mg) 250 mg PO BID [facility] Last Admin: 08/27/19 09:37 Dose: 250 mg Rivaroxaban (Xarelto) 20 mg PO 1800 [facility] Last Admin: 08/27/19 18:25 Dose: 20 mg Senna (Senna -) 2 tab PO BID [facility] Last Admin: 08/27/19 09:37 Dose: 2 tab Tramadol HCl (Ultram -) 50 mg PO Q6H PRN PRN Reason: pain 6-10 Last Admin: 08/27/19 18:24 Dose: 50 mg - Objective Vital Signs: Vital Signs Temperature 97.3 F L 08/27/19 18:00 Pulse Rate 100 H 08/27/19 18:00 Respiratory Rate 18 08/27/19 18:00 Blood Pressure 129/80 08/27/19 18:00 O2 Sat by Pulse Oximetry (%) 97 08/27/19 09:00 Constitutional: Yes: Obese Neck: Yes: WNL, Supple Cardiovascular: Yes: Pulse Irregular Respiratory: Yes: WNL, Regular, CTA Bilaterally Gastrointestinal: Yes: WNL, Normal Bowel Sounds, Soft, Abdomen, Obese Extremities: Yes: Other ((+) erythema LLE w/ open wound) Edema: LLE: Trace, RLE: Trace Labs: CBC, BMP 08/26/19 07:33 08/26/19 07:33 Problem List - Problems (1) Cellulitis Assessment/Plan: Cont IV Vanco/zosyn Cultures remain negative CT scan LLE was negative for abscess Code(s): L03.90 - CELLULITIS, UNSPECIFIED Qualifiers: Site of cellulitis: extremity Site of cellulitis of extremity: lower extremity Laterality: left Qualified Code(s): L03.116 - Cellulitis of left lower limb (2) Afib Assessment/Plan: Cont xarelto Heart rate controlled Code(s): I48.91 - UNSPECIFIED ATRIAL FIBRILLATION (3) HTN (hypertension) Assessment/Plan: Cont cardizem BP stable Code(s): I10 - ESSENTIAL (PRIMARY) HYPERTENSION (4) GERD (gastroesophageal reflux disease) Code(s): K21.9 - GASTRO-ESOPHAGEAL REFLUX DISEASE WITHOUT ESOPHAGITIS (5) PVD (peripheral vascular disease) Code(s): I73.9 - PERIPHERAL VASCULAR DISEASE, UNSPECIFIED (6) Peripheral neuropathy Assessment/Plan: Cont lyrica Code(s): G62.9 - POLYNEUROPATHY, UNSPECIFIED (7) HLD (hyperlipidemia) Code(s): E78.5 - HYPERLIPIDEMIA, UNSPECIFIED
[2019-08-27] MEDS: MELATONIN 5 MG TABLETS PO SCH (23:08)
[2019-08-28] MEDS ORDERED: DEXTROSE 5%-WATER - 50 ML IVPB ONE ×3 (01:21→18:14)
[2019-08-28] MEDS ORDERED: PIPERACILLIN/TAZOBACTAM 3.375 GM VIAL IVPB ONE ×3 (01:21→18:14)
[2019-08-28] MEDS: PIPERACILLIN/TAZOB 3.375 GM 3.375 GM in DEXTROSE 5%-WATER - 50 ML IVPB SCH ×4 (02:55→19:32)
[2019-08-28] MEDS ORDERED: PREGABALIN 50 MG CAPSULE ONE ×2 (10:46→21:13)
[2019-08-28] MEDS ORDERED: PREGABALIN 100 MG CAPSULE ONE ×2 (10:47→21:14)
[2019-08-28] MEDS: PREGABALIN PO SCH ×2 (10:53→22:03)
[2019-08-28] MEDS: SENNOSIDES 8.6MG TABLET (FP) PO SCH ×2 (10:54→22:05)
[2019-08-28] MEDS: traMADol HCL 50 MG TABLET PO PRN (10:54)
[2019-08-28] MEDS ORDERED: PT OWN MED DRAWER 7, Y5N ONE ×2 (11:33→12:26)
[2019-08-28] MEDS: VANCOMYCIN HCL 1,250 MG in DEXTROSE 5%-WATER - 250 ML IVPB SCH (12:42)
[2019-08-28] MEDS ORDERED: FENTANYL PATCH WASTE TD PRN (15:50)
--- NOTE | 2019-08-28 15:56 | PN ---
Progress Note, Physician History of Present Illness: need more pain med - Current Medication List Current Medications: Active Medications Diltiazem HCl (Cardizem Cd -) 120 mg PO HS [facility] Last Admin: 08/27/19 23:08 Dose: 120 mg Fentanyl (Duragesic 25mcg Patch -) 1 patch TD Q72H [facility] Stop: 09/04/19 15:51 Piperacillin Sod/Tazobactam (Sod 3.375 gm/ Dextrose) 50 mls @ 100 mls/hr IVPB Q8H-IV [facility]; Protocol Last Admin: 08/28/19 12:03 Dose: 100 mls/hr Vancomycin HCl 1,250 mg/ (Dextrose) 250 mls @ 250 mls/2 hr IVPB Q24H [facility]; Protocol Last Admin: 08/28/19 12:42 Dose: 250 mls/2 hr Melatonin (Melatonin) 5 mg PO [facility] Last Admin: 08/27/19 23:08 Dose: 5 mg Miscellaneous (Duragesic Patch Waste) 1 each MC PRN PRN PRN Reason: PAIN Pregabalin 200 mg/ Pregabalin (50 mg) 250 mg PO BID [facility] Last Admin: 08/28/19 10:53 Dose: 250 mg Rivaroxaban (Xarelto) 20 mg PO 1800 [facility] Last Admin: 08/27/19 18:25 Dose: 20 mg Senna (Senna -) 2 tab PO BID [facility] Last Admin: 08/28/19 10:54 Dose: 2 tab Tramadol HCl (Ultram -) 50 mg PO Q6H PRN PRN Reason: pain 6-10 Last Admin: 08/28/19 10:54 Dose: 50 mg - Objective Vital Signs: Vital Signs Temperature 97.8 F 08/28/19 14:00 Pulse Rate 97 H 08/28/19 14:00 Respiratory Rate 08/28/19 14:00 Blood Pressure 133/66 08/28/19 14:00 O2 Sat by Pulse Oximetry (%) 97 08/27/19 21:00 Constitutional: Yes: No Distress HENT: Yes: Atraumatic Neck: Yes: Supple Cardiovascular: Yes: Regular Rate and Rhythm Respiratory: Yes: CTA Bilaterally Gastrointestinal: Yes: Normal Bowel Sounds Extremities: Yes: Other (llex cellulitis) Neurological: Yes: Alert, Oriented Labs: CBC, BMP 08/26/19 07:33 08/26/19 07:33 Problem List - Problems (1) Cellulitis Assessment/Plan: iv abx id on brandon will start her on fentanyl patch for pain , its not the same as codeine...d/w pharmacy Code(s): L03.90 - CELLULITIS, UNSPECIFIED Qualifiers: Site of cellulitis: extremity Site of cellulitis of extremity: lower extremity Laterality: left Qualified Code(s): L03.116 - Cellulitis of left lower limb (2) HLD (hyperlipidemia) Code(s): E78.5 - HYPERLIPIDEMIA, UNSPECIFIED (3) HTN (hypertension) Assessment/Plan: on meds Code(s): I10 - ESSENTIAL (PRIMARY) HYPERTENSION (4) PVD (peripheral vascular disease) Code(s): I73.9 - PERIPHERAL VASCULAR DISEASE, UNSPECIFIED (5) Afib Assessment/Plan: on meds Code(s): I48.91 - UNSPECIFIED ATRIAL FIBRILLATION (6) GERD (gastroesophageal reflux disease) Code(s): K21.9 - GASTRO-ESOPHAGEAL REFLUX DISEASE WITHOUT ESOPHAGITIS
[2019-08-28] MEDS ORDERED: fentaNYL 12mcg/hr PATCH.TD72 TD SCH (16:30)
--- NOTE | 2019-08-28 18:18 | PN ---
Progress Note, Physician History of Present Illness: Pt still with severe erythema/edema/tenderness of LLE. CT scan negative for abscess. Tmax 99.3F - Current Medication List Current Medications: Active Medications Diltiazem HCl (Cardizem Cd -) 120 mg PO HS [facility] Last Admin: 08/27/19 23:08 Dose: 120 mg Fentanyl (Duragesic 12mcg Patch -) 1 patch TD Q72H [facility] Stop: 09/04/19 16:29 Last Admin: 08/28/19 17:24 Dose: 1 patch Piperacillin Sod/Tazobactam (Sod 3.375 gm/ Dextrose) 50 mls @ 100 mls/hr IVPB Q8H-IV [facility]; Protocol Last Admin: 08/28/19 12:03 Dose: 100 mls/hr Vancomycin HCl 1,250 mg/ (Dextrose) 250 mls @ 250 mls/2 hr IVPB Q24H [facility]; Protocol Last Admin: 08/28/19 12:42 Dose: 250 mls/2 hr Melatonin (Melatonin) 5 mg PO HS [facility] Last Admin: 08/27/19 23:08 Dose: 5 mg Miscellaneous (Duragesic Patch Waste) 1 each TD PRN PRN PRN Reason: PAIN Pregabalin 200 mg/ Pregabalin (50 mg) 250 mg PO BID [facility] Last Admin: 08/28/19 10:53 Dose: 250 mg Rivaroxaban (Xarelto) 20 mg PO 1800 [facility] Last Admin: 08/27/19 18:25 Dose: 20 mg Senna (Senna -) 2 tab PO BID [facility] Last Admin: 08/28/19 10:54 Dose: 2 tab Tramadol HCl (Ultram -) 50 mg PO Q6H PRN PRN Reason: pain 6-10 Last Admin: 08/28/19 10:54 Dose: 50 mg - Objective Vital Signs: Vital Signs Temperature 97.8 F 08/28/19 14:00 Pulse Rate 97 H 08/28/19 14:00 Respiratory Rate 08/28/19 14:00 Blood Pressure 133/66 08/28/19 14:00 O2 Sat by Pulse Oximetry (%) 97 08/27/19 21:00 Constitutional: Yes: No Distress, Calm Cardiovascular: Yes: Regular Rate and Rhythm Respiratory: Yes: Regular Gastrointestinal: Yes: Normal Bowel Sounds, Soft Extremities: Yes: Erythema (LLE +erythema/edema +tender to touch) Neurological: Yes: Alert, Oriented Labs: CBC, BMP 08/26/19 07:33 08/26/19 07:33 Microbiology 08/23/19 20:15 Blood - Peripheral Venous Blood Culture - Preliminary NO GROWTH OBTAINED AFTER 96 HOURS, INCUBATION TO CONTINUE FOR 1 DAYS. 08/23/19 20:15 Blood - Peripheral Venous Blood Culture - Preliminary NO GROWTH OBTAINED AFTER 96 HOURS, INCUBATION TO CONTINUE FOR 1 DAYS. - ....Imaging Cat Scan: Report Reviewed Problem List - Problems (1) Cellulitis Code(s): L03.90 - CELLULITIS, UNSPECIFIED Qualifiers: Site of cellulitis: extremity Site of cellulitis of extremity: lower extremity Laterality: left Qualified Code(s): L03.116 - Cellulitis of left lower limb (2) HLD (hyperlipidemia) Code(s): E78.5 - HYPERLIPIDEMIA, UNSPECIFIED (3) Afib Code(s): I48.91 - UNSPECIFIED ATRIAL FIBRILLATION (4) HTN (hypertension) Code(s): I10 - ESSENTIAL (PRIMARY) HYPERTENSION (5) PVD (peripheral vascular disease) Code(s): I73.9 - PERIPHERAL VASCULAR DISEASE, UNSPECIFIED (6) Peripheral neuropathy Code(s): G62.9 - POLYNEUROPATHY, UNSPECIFIED Assessment/Plan LLE cellulitis AFIB PVD peripheral neuropathy HLD HTN -- still with significant erythema/edema/warmth/tenderness -- CT without abscess -- continue IV antibiotics and monitor -- cbc, bmp, vancomycin trough tomorrow, monitor renal function
[2019-08-28] MEDS: RIVAROXABAN 20 MG TABLET PO SCH (18:32)
[2019-08-28] MEDS: MELATONIN 5 MG TABLETS PO SCH (22:02)
[2019-08-29] MEDS ORDERED: DEXTROSE 5%-WATER - 50 ML IVPB ONE ×3 (01:04→18:57)
[2019-08-29] MEDS ORDERED: PIPERACILLIN/TAZOBACTAM 3.375 GM VIAL IVPB ONE ×3 (01:04→18:57)
[2019-08-29] MEDS: PIPERACILLIN/TAZOB 3.375 GM 3.375 GM in DEXTROSE 5%-WATER - 50 ML IVPB SCH ×3 (01:25→18:59)
[2019-08-29 09:36] LABS: BASO % 1.5 % (0-2.0); EOS % 4.7 % (0-4.5); HEMOGLOBIN 12.3 GM/dL (10.7-15.3); LYMPH % 10.6 % (8-40); MCH 28.5 pg (25.7-33.7); MCHC 34.2 g/dl (32.0-36.0); MEAN CELL VOLUME 83.3 fl (80-96); MEAN PLT VOLUME 6.8 fl (7.5-11.1); MONO % 10.9 % (3.8-10.2); NEUT % 72.3 % (42.8-82.8); PLATELET COUNT 389 K/MM3 (134-434); RBC 4.33 M/mm3 (3.60-5.2); RDW 14.1 % (11.6-15.6); WHITE BLOOD COUNT 5.7 K/mm3 (4.0-10.0)
[2019-08-29 10:01] LABS: BLOOD UREA NITROGEN 9.9 mg/dL (7-18); CALCIUM 8.6 mg/dL (8.5-10.1); CREATININE 0.4 mg/dL (0.55-1.3); POTASSIUM 4.3 mmol/L (3.5-5.1)
[2019-08-29] MEDS ORDERED: PREGABALIN 50 MG CAPSULE ONE ×2 (10:37→22:15)
[2019-08-29] MEDS ORDERED: PREGABALIN 100 MG CAPSULE ONE ×2 (10:38→22:16)
[2019-08-29] MEDS: PREGABALIN PO SCH ×2 (10:46→22:29)
[2019-08-29] MEDS: SENNOSIDES 8.6MG TABLET (FP) PO SCH ×2 (10:46→22:31)
[2019-08-29] MEDS: VANCOMYCIN HCL 1,250 MG in DEXTROSE 5%-WATER - 250 ML IVPB SCH (15:38)
[2019-08-29] MEDS ORDERED: FUROSEMIDE 20 MG TABLET (FP) PO ONE (15:45)
[2019-08-29] MEDS: VANCOMYCIN 1 GRAM (PRE-DOCKED) 1,000 MG/250 ML BAG IVPB SCH (15:52)
--- NOTE | 2019-08-29 17:18 | PN ---
Progress Note, Physician History of Present Illness: Pt is alert, afebrile. Still with significant pain in LLE with touch. Slightly less edema but +erythema/warmth. at bedside. Case discussed. - Current Medication List Current Medications: Active Medications Diltiazem HCl (Cardizem Cd -) 120 mg PO HS [facility] Last Admin: 08/28/19 22:05 Dose: 120 mg Fentanyl (Duragesic 12mcg Patch -) 1 patch TD Q72H [facility] Stop: 09/04/19 16:29 Last Admin: 08/28/19 17:24 Dose: 1 patch Piperacillin Sod/Tazobactam (Sod 3.375 gm/ Dextrose) 50 mls @ 100 mls/hr IVPB Q8H-IV [facility]; Protocol Last Admin: 08/29/19 10:46 Dose: 100 mls/hr Vancomycin HCl (Vancomycin (Pre-Docked)) 1,000 mg in 250 mls @ 166.667 mls/hr IVPB Q12H [facility]; Protocol Last Admin: 08/29/19 15:52 Dose: 166.667 mls/hr Melatonin (Melatonin) 5 mg PO [facility] Last Admin: 08/28/19 22:02 Dose: 5 mg Miscellaneous (Duragesic Patch Waste) 1 each TD PRN PRN PRN Reason: PAIN Pregabalin 200 mg/ Pregabalin (50 mg) 250 mg PO BID [facility] Last Admin: 08/29/19 10:46 Dose: 250 mg Rivaroxaban (Xarelto) 20 mg PO 1800 [facility] Last Admin: 08/28/19 18:32 Dose: 20 mg Senna (Senna -) 2 tab PO BID [facility] Last Admin: 08/29/19 10:46 Dose: 2 tab - Objective Vital Signs: Vital Signs Temperature 98.2 F 08/29/19 10:42 Pulse Rate 107 H 08/29/19 15:50 Respiratory Rate 20 08/29/19 15:50 Blood Pressure 129/67 08/29/19 15:50 O2 Sat by Pulse Oximetry (%) 97 08/28/19 21:00 Constitutional: Yes: No Distress, Calm Cardiovascular: Yes: Regular Rate and Rhythm Respiratory: Yes: Regular Gastrointestinal: Yes: Normal Bowel Sounds, Soft Genitourinary: Yes: WNL Extremities: Yes: Erythema (LLE) Integumentary: Yes: Onychomycosis Wound/Incision: Yes: Other (LLE erythema/edema/warmth/tenderness. Lt medial calf wound with serosanguinous drainage, no purulence noted) Neurological: Yes: Alert, Oriented Labs: CBC, BMP 08/29/19 08:52 08/29/19 08:52 Microbiology 08/23/19 20:15 Blood - Peripheral Venous Blood Culture - Final NO GROWTH AFTER 5 DAYS INCUBATION 08/23/19 20:15 Blood - Peripheral Venous Blood Culture - Final NO GROWTH AFTER 5 DAYS INCUBATION - ....Imaging Cat Scan: Report Reviewed Problem List - Problems (1) Cellulitis Code(s): L03.90 - CELLULITIS, UNSPECIFIED Qualifiers: Site of cellulitis: extremity Site of cellulitis of extremity: lower extremity Laterality: left Qualified Code(s): L03.116 - Cellulitis of left lower limb (2) HLD (hyperlipidemia) Code(s): E78.5 - HYPERLIPIDEMIA, UNSPECIFIED (3) Afib Code(s): I48.91 - UNSPECIFIED ATRIAL FIBRILLATION (4) HTN (hypertension) Code(s): I10 - ESSENTIAL (PRIMARY) HYPERTENSION (5) PVD (peripheral vascular disease) Code(s): I73.9 - PERIPHERAL VASCULAR DISEASE, UNSPECIFIED (6) Peripheral neuropathy Code(s): G62.9 - POLYNEUROPATHY, UNSPECIFIED Assessment/Plan LLE cellulitis Onychomycosis AFIB PVD peripheral neuropathy HLD HTN -- remains tender/erythematous, slightly less edema +tender -- CT without abscess -- continue IV antibiotics , wound care -- Vancomycin trough noted (low) - dose adjusted, repeat trough prior to 4th dose -- continue Zosyn monitor renal function Podiatry follow up as outpatient
[2019-08-29] MEDS: RIVAROXABAN 20 MG TABLET PO SCH (18:59)
--- NOTE | 2019-08-29 22:17 | PN ---
Progress Note, Physician History of Present Illness: Pt still complains of pain to LLE - Current Medication List Current Medications: Active Medications Diltiazem HCl (Cardizem Cd -) 120 mg PO HS [facility] Last Admin: 08/28/19 22:05 Dose: 120 mg Fentanyl (Duragesic 12mcg Patch -) 1 patch TD Q72H [facility] Stop: 09/04/19 16:29 Last Admin: 08/28/19 17:24 Dose: 1 patch Piperacillin Sod/Tazobactam (Sod 3.375 gm/ Dextrose) 50 mls @ 100 mls/hr IVPB Q8H-IV [facility]; Protocol Last Admin: 08/29/19 18:59 Dose: 100 mls/hr Vancomycin HCl (Vancomycin (Pre-Docked)) 1,000 mg in 250 mls @ 166.667 mls/hr IVPB Q12H [facility]; Protocol Last Admin: 08/29/19 15:52 Dose: 166.667 mls/hr Melatonin (Melatonin) 5 mg PO HS [facility] Last Admin: 08/28/19 22:02 Dose: 5 mg Miscellaneous (Duragesic Patch Waste) 1 each TD PRN PRN PRN Reason: PAIN Pregabalin 200 mg/ Pregabalin (50 mg) 250 mg PO BID [facility] Last Admin: 08/29/19 10:46 Dose: 250 mg Rivaroxaban (Xarelto) 20 mg PO 1800 [facility] Last Admin: 08/29/19 18:59 Dose: 20 mg Senna (Senna -) 2 tab PO BID [facility] Last Admin: 08/29/19 10:46 Dose: 2 tab - Objective Vital Signs: Vital Signs Temperature 98.1 F 08/29/19 18:39 Pulse Rate 101 H 08/29/19 18:39 Respiratory Rate 20 08/29/19 18:39 Blood Pressure 120/69 08/29/19 18:39 O2 Sat by Pulse Oximetry (%) 96 08/29/19 11:00 Neck: Yes: WNL, Supple Cardiovascular: Yes: Pulse Irregular Respiratory: Yes: WNL, Regular, CTA Bilaterally Gastrointestinal: Yes: WNL, Normal Bowel Sounds, Soft Extremities: Yes: Other (LLE w/ erythema/warmth and open lesion/wound) Edema: LLE: 1+, RLE: Trace Labs: CBC, BMP 08/29/19 08:52 08/29/19 08:52 Problem List - Problems (1) Cellulitis Assessment/Plan: Cont IV Vanco/zosyn Cultures remain negative CT scan LLE was negative for abscess Will get vascular consult Will dc duragesic and trial of lidocaine Code(s): L03.90 - CELLULITIS, UNSPECIFIED Qualifiers: Site of cellulitis: extremity Site of cellulitis of extremity: lower extremity Laterality: left Qualified Code(s): L03.116 - Cellulitis of left lower limb (2) Afib Assessment/Plan: Cont xarelto Heart rate controlled Code(s): I48.91 - UNSPECIFIED ATRIAL FIBRILLATION (3) HTN (hypertension) Assessment/Plan: Cont cardizem BP stable Code(s): I10 - ESSENTIAL (PRIMARY) HYPERTENSION (4) GERD (gastroesophageal reflux disease) Code(s): K21.9 - GASTRO-ESOPHAGEAL REFLUX DISEASE WITHOUT ESOPHAGITIS (5) PVD (peripheral vascular disease) Code(s): I73.9 - PERIPHERAL VASCULAR DISEASE, UNSPECIFIED (6) Peripheral neuropathy Assessment/Plan: Cont lyrica Code(s): G62.9 - POLYNEUROPATHY, UNSPECIFIED (7) HLD (hyperlipidemia) Code(s): E78.5 - HYPERLIPIDEMIA, UNSPECIFIED
[2019-08-29] MEDS: MELATONIN 5 MG TABLETS PO SCH (22:29)
[2019-08-29] MEDS: LIDOCAINE PATCH REMOVAL MC SCH (22:32)
[2019-08-30] MEDS ORDERED: PIPERACILLIN/TAZOBACTAM 3.375 GM VIAL IVPB ONE ×3 (01:32→16:28)
[2019-08-30] MEDS ORDERED: DEXTROSE 5%-WATER - 50 ML IVPB ONE ×3 (01:32→16:28)
[2019-08-30] MEDS: PIPERACILLIN/TAZOB 3.375 GM 3.375 GM in DEXTROSE 5%-WATER - 50 ML IVPB SCH ×4 (02:28→17:15)
[2019-08-30] MEDS: VANCOMYCIN 1 GRAM (PRE-DOCKED) 1,000 MG/250 ML BAG IVPB SCH ×2 (03:22→16:22)
--- NOTE | 2019-08-30 08:03 | PN ---
Progress Note, Physician History of Present Illness: stable still with pain in the leg now with dressing - Current Medication List Current Medications: Active Medications Diltiazem HCl (Cardizem Cd -) 120 mg PO HS [facility] Last Admin: 08/29/19 22:31 Dose: 120 mg Piperacillin Sod/Tazobactam (Sod 3.375 gm/ Dextrose) 50 mls @ 100 mls/hr IVPB Q8H-IV [facility]; Protocol Last Admin: 08/30/19 02:28 Dose: 100 mls/hr Vancomycin HCl (Vancomycin (Pre-Docked)) 1,000 mg in 250 mls @ 166.667 mls/hr IVPB Q12H [facility]; Protocol Last Admin: 08/30/19 03:22 Dose: 166.667 mls/hr Lidocaine (Lidoderm Patch -) 1 patch TP DAILY [facility] Melatonin (Melatonin) 5 mg PO HS [facility] Last Admin: 08/29/19 22:29 Dose: 5 mg Miscellaneous (Lidoderm Patch Removal) 1 each MC DAILY@2200 [facility] Last Admin: 08/29/19 22:32 Dose: 1 each Pregabalin 200 mg/ Pregabalin (50 mg) 250 mg PO BID [facility] Last Admin: 08/29/19 22:29 Dose: 250 mg Rivaroxaban (Xarelto) 20 mg PO 1800 [facility] Last Admin: 08/29/19 18:59 Dose: 20 mg Senna (Senna -) 2 tab PO BID [facility] Last Admin: 08/29/19 22:31 Dose: 2 tab - Objective Vital Signs: Vital Signs Temperature 98.5 F 08/30/19 06:00 Pulse Rate 91 H 08/30/19 06:00 Respiratory Rate 20 08/30/19 06:00 Blood Pressure 145/84 08/30/19 06:00 O2 Sat by Pulse Oximetry (%) 96 08/29/19 21:00 Constitutional: Yes: Calm, Mild Distress Cardiovascular: Yes: S1, S2 Respiratory: Yes: Regular, CTA Bilaterally Gastrointestinal: Yes: Normal Bowel Sounds, Soft Musculoskeletal: Yes: WNL Extremities: Yes: Erythema (improving), Other Integumentary: Yes: Erythema Wound/Incision: Yes: Dressing Dry and Intact Neurological: Yes: Alert, Oriented Psychiatric: Yes: Alert, Oriented Assessment/Plan Problem List - Problems (1) Cellulitis Code(s): L03.90 - CELLULITIS, UNSPECIFIED Qualifiers: Site of cellulitis: extremity Site of cellulitis of extremity: lower extremity Laterality: left Qualified Code(s): L03.116 - Cellulitis of left lower limb (2) Afib Code(s): I48.91 - UNSPECIFIED ATRIAL FIBRILLATION (3) HTN (hypertension) Code(s): I10 - ESSENTIAL (PRIMARY) HYPERTENSION (4) GERD (gastroesophageal reflux disease) Code(s): K21.9 - GASTRO-ESOPHAGEAL REFLUX DISEASE WITHOUT ESOPHAGITIS (5) PVD (peripheral vascular disease) Code(s): I73.9 - PERIPHERAL VASCULAR DISEASE, UNSPECIFIED (6) Peripheral neuropathy Code(s): G62.9 - POLYNEUROPATHY, UNSPECIFIED (7) HLD (hyperlipidemia) Code(s): E78.5 - HYPERLIPIDEMIA, UNSPECIFIED plan continue abx elevation of the leg wound care
[2019-08-30 08:05] LABS: BASO % 1.4 % (0-2.0); EOS % 5.3 % (0-4.5); HEMATOCRIT 36.8 % (32.4-45.2); HEMOGLOBIN 12.5 GM/dL (10.7-15.3); LYMPH % 11.9 % (8-40); MCH 28.1 pg (25.7-33.7); MCHC 33.9 g/dl (32.0-36.0); MEAN PLT VOLUME 6.7 fl (7.5-11.1); MONO % 12.3 % (3.8-10.2); NEUT % 69.1 % (42.8-82.8); PLATELET COUNT 380 K/MM3 (134-434); RBC 4.43 M/mm3 (3.60-5.2); RDW 14.4 % (11.6-15.6); WHITE BLOOD COUNT 5.3 K/mm3 (4.0-10.0)
[2019-08-30 08:46] LABS: ALBUMIN 2.7 g/dl (3.4-5.0); BILIRUBIN,TOTAL 0.7 mg/dL (0.2-1); BLOOD UREA NITROGEN 11.5 mg/dL (7-18); CALCIUM 8.6 mg/dL (8.5-10.1); CREATININE 0.4 mg/dL (0.55-1.3); POTASSIUM 4.1 mmol/L (3.5-5.1); TOT PROT 6.3 g/dl (6.4-8.2)
[2019-08-30] MEDS ORDERED: PREGABALIN 50 MG CAPSULE ONE ×2 (09:28→21:18)
[2019-08-30] MEDS ORDERED: PREGABALIN 100 MG CAPSULE ONE ×2 (09:28→21:18)
--- NOTE | 2019-08-30 09:36 | CONSULT ---
- Consultation REQUESTING PROVIDER: CONSULT REQUEST: We have been asked to surgically evaluate this patient for Left LE cellulitis with Left LE wound. 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 The patient states that she's had cellulitis in her LLE since February. She states that the cellulitis has not improved despite taking several days of clindamycin. She denies fever, chills, nausea, vomiting, CP, SOB, numbness, tingling, weakness. She states that her foot has been oozing and is painful to walk on but denies other acute complaints. 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 Cardiovascular: Yes: AFIB, HTN, Hyperlipdemia Pulmonary: MANDEEP - Smoking History Smoking history: Former smoker Have you smoked in the past 12 months: No If you are a former smoker, when did you quit?: over 50 years ago - Alcohol/Substance Use Hx Alcohol Use: No Home Medications - Allergies Allergies/Adverse Reactions: Allergies Allergy/AdvReac Type Severity Reaction Status Date / Time codeine Allergy Verified 08/23/19 16:57 morphine Allergy Verified 08/23/19 16:57 Sulfa (Sulfonamide Allergy Verified 08/23/19 16:57 Antibiotics) - Home Medications Home Medications: Ambulatory Orders Armodafinil 1 tab PO DAILY 02/23/18 Rivaroxaban [Xarelto -] 1 tab PO DAILY 02/23/18 Diltiazem HCl [Cartia Xt] 1 tab PO HS 05/20/19 Pravastatin Sodium 1 tab PO HS 05/20/19 Sennosides [Senna -] 2 tab PO BID 05/20/19 Telmisartan 1 tab PO HS 05/20/19 Melatonin 5 mg PO HS tab 05/25/19 Omeprazole 20 mg PO ACBK 07/17/19 Pregabalin [Lyrica -] 250 mg PO BID #1 capsule MDD 2 07/21/19 traMADol HCL [Ultram -] 50 mg PO Q8H PRN #30 tablet MDD 3 07/21/19 Family Medical History Family History: Unremarkable Review of Systems - Review of Systems Constitutional: reports: No Symptoms Eyes: reports: No Symptoms HENT: reports: No Symptoms Neck: reports: No Symptoms Cardiovascular: reports: No Symptoms Respiratory: reports: No Symptoms Gastrointestinal: reports: No Symptoms Genitourinary: reports: No Symptoms Physical Examination Vital Signs: Vital Signs Temp 98.5 F 08/30/19 06:00 Pulse 91 H 08/30/19 06:00 Resp 20 08/30/19 06:00 BP 145/84 08/30/19 06:00 Pulse Ox 96 08/29/19 21:00 Intake & Output 08/29/19 08/29/19 08/30/19 11:59 23:59 11:59 Intake Total 400 1200 520 Balance 400 1200 520 Intake: IVPB 100 300 300 Oral 300 900 220 Other: Voiding Method Bedside Commode Bedside Commode Bedside Commode # Unmeasured Voids Void 4 5 3 Bowel Movement No Yes No # Bowel Movements 3 Constitutional: Obese, A&Ox3, NAD Eyes: sclera non-icterus HENT: NC/AT Respiratory: Unlabored resp on RA, no accessory muscle use Extremities: Left LE with chronic skin changes seen throughout and several small healing and scabbed over areas, cellulitis seen throughout the Left LE extending from just below knee to above ankle. compartments soft and compressible. small ulcerated wound @1x1cm at medial mid calf with SS d/c, indurated to palpation with no evidence of fluctuance or discrete collection. exquisitely TTP throughout medial calf area. foot and toes warm and well perfused with scab like lesion over the 2-3 TMT joints extending into the web space, no open wounds on foot or toes with +2 DP and PT pulses. Right LE compartments soft supple and compressible, non-tender to palpation with no lesion or rashes seen. foot and toes warm and well perfused with +2 DP and PT pulses. Edema: Neurological: WNL, Alert, Oriented Labs: CBC, BMP 08/30/19 07:30 08/30/19 07:30 CT scan left LE 08/27/19: No evidence of collection or abscess. Problem List - Problems (1) Cellulitis Assessment/Plan: 79yo with LEft LE cellulitis and LE wound, also being treated by podiatry for left foot fungal infection. Patient with palpable pulses and no evidence of abscess on CT scan. -podiatry following for foot fungal infection and treatment -gentamicin ointment to left leg wound daily -continue IV abx per ID -compression stockings when cellulitis resolves -f/u in wound care clinic as outpatient. Evaluation and plan discussed with Dr Boswell Code(s): L03.90 - CELLULITIS, UNSPECIFIED Qualifiers: Site of cellulitis: extremity Site of cellulitis of extremity: lower extremity Laterality: left Qualified Code(s): L03.116 - Cellulitis of left lower limb
[2019-08-30] MEDS: LIDOCAINE 5% TOPICAL PATCH TP SCH (09:47)
[2019-08-30] MEDS: PREGABALIN PO SCH ×2 (09:48→21:48)
[2019-08-30] MEDS: SENNOSIDES 8.6MG TABLET (FP) PO SCH ×2 (09:49→21:48)
[2019-08-30] MEDS: GENTAMICIN SO4 0.1% TOPICAL OINTMENT 15 GM/TUBE TUBE TP SCH ×2 (12:26→21:49)
[2019-08-30] MEDS: RIVAROXABAN 20 MG TABLET PO SCH (17:15)
--- NOTE | 2019-08-30 17:26 | CONSULT ---
Consult Consult Specialty:: Podiatry Reason for Consultation:: Tinea Pedis interdigitally, +eschar dorsum left foot, -cellulitis of foot, +edema b/l feet - Past Medical History TREATMENT COORDINATOR: Yes: Peripheral Neuropathy Cardio/Vascular: Yes: AFIB, HTN, Hyperlipdemia - Alcohol/Substance Use Hx Alcohol Use: No - Smoking History Smoking history: Former smoker Have you smoked in the past 12 months: No If you are a former smoker, when did you quit?: over 50 years ago Home Medications - Allergies Allergies/Adverse Reactions: Allergies Allergy/AdvReac Type Severity Reaction Status Date / Time codeine Allergy Verified 08/23/19 16:57 morphine Allergy Verified 08/23/19 16:57 Sulfa (Sulfonamide Allergy Verified 08/23/19 16:57 Antibiotics) - Home Medications Home Medications: Ambulatory Orders Armodafinil 1 tab PO DAILY 02/23/18 Rivaroxaban [Xarelto -] 1 tab PO DAILY 02/23/18 Diltiazem HCl [Cartia Xt] 1 tab PO HS 05/20/19 Pravastatin Sodium 1 tab PO HS 05/20/19 Sennosides [Senna -] 2 tab PO BID 05/20/19 Telmisartan 1 tab PO HS 05/20/19 Melatonin 5 mg PO HS tab 05/25/19 Omeprazole 20 mg PO ACBK 07/17/19 Pregabalin [Lyrica -] 250 mg PO BID #1 capsule MDD 2 07/21/19 traMADol HCL [Ultram -] 50 mg PO Q8H PRN #30 tablet MDD 3 07/21/19 Physical Exam Vital Signs: Vital Signs Temperature 97.9 F 08/30/19 14:00 Pulse Rate 95 H 08/30/19 14:00 Respiratory Rate 20 08/30/19 14:00 Blood Pressure 132/87 08/30/19 14:00 O2 Sat by Pulse Oximetry (%) 97 08/30/19 09:00 Labs: CBC, BMP 08/30/19 07:30 08/30/19 07:30 Assessment/Plan tinea pedis edema eschar Betadine between toes left foot and dorsum of foot. Recommend vascular consult. Will follow.
--- NOTE | 2019-08-30 19:29 | PN ---
Progress Note, Physician History of Present Illness: DOING WELL - Current Medication List Current Medications: Active Medications Diltiazem HCl (Cardizem Cd -) 120 mg PO HS [facility] Last Admin: 08/29/19 22:31 Dose: 120 mg Gentamicin Sulfate (Garamycin 0.1% Ointment -) 1 applic TP BID [facility] Last Admin: 08/30/19 12:26 Dose: 1 applic Piperacillin Sod/Tazobactam (Sod 3.375 gm/ Dextrose) 50 mls @ 100 mls/hr IVPB Q8H-IV [facility]; Protocol Last Admin: 08/30/19 17:15 Dose: 100 mls/hr Vancomycin HCl (Vancomycin (Pre-Docked)) 1,000 mg in 250 mls @ 166.667 mls/hr IVPB Q12H [facility]; Protocol Last Admin: 08/30/19 16:22 Dose: 166.667 mls/hr Lidocaine (Lidoderm Patch -) 1 patch TP DAILY [facility] Last Admin: 08/30/19 09:47 Dose: 1 patch Melatonin (Melatonin) 5 mg PO [facility] Last Admin: 08/29/19 22:29 Dose: 5 mg Miscellaneous (Lidoderm Patch Removal) 1 each [facility] DAILY@2200 [facility] Last Admin: 08/29/19 22:32 Dose: 1 each Pregabalin 200 mg/ Pregabalin (50 mg) 250 mg PO BID [facility] Last Admin: 08/30/19 09:48 Dose: 250 mg Rivaroxaban (Xarelto) 20 mg PO 1800 [facility] Last Admin: 08/30/19 17:15 Dose: 20 mg Senna (Senna -) 2 tab PO BID [facility] Last Admin: 08/30/19 09:49 Dose: 2 tab - Objective Vital Signs: Vital Signs Temperature 97.7 F 08/30/19 18:00 Pulse Rate 87 08/30/19 18:00 Respiratory Rate 20 08/30/19 18:00 Blood Pressure 125/68 08/30/19 18:00 O2 Sat by Pulse Oximetry (%) 97 08/30/19 09:00 HENT: Yes: Atraumatic Neck: Yes: Supple Cardiovascular: Yes: Regular Rate and Rhythm Respiratory: Yes: CTA Bilaterally Gastrointestinal: Yes: Normal Bowel Sounds Extremities: Yes: Other (llex cellulitis) Edema: LLE: Trace Neurological: Yes: Alert, Oriented Labs: CBC, BMP 08/30/19 07:30 08/30/19 07:30 Problem List - Problems (1) Cellulitis Assessment/Plan: iv abx id on [facility] wound care Code(s): L03.90 - CELLULITIS, UNSPECIFIED Qualifiers: Site of cellulitis: extremity Site of cellulitis of extremity: lower extremity Laterality: left Qualified Code(s): L03.116 - Cellulitis of left lower limb (2) HLD (hyperlipidemia) Code(s): E78.5 - HYPERLIPIDEMIA, UNSPECIFIED (3) HTN (hypertension) Assessment/Plan: on meds Code(s): I10 - ESSENTIAL (PRIMARY) HYPERTENSION (4) PVD (peripheral vascular disease) Code(s): I73.9 - PERIPHERAL VASCULAR DISEASE, UNSPECIFIED (5) Afib Assessment/Plan: on meds Code(s): I48.91 - UNSPECIFIED ATRIAL FIBRILLATION (6) GERD (gastroesophageal reflux disease) Code(s): K21.9 - GASTRO-ESOPHAGEAL REFLUX DISEASE WITHOUT ESOPHAGITIS Assessment/Plan covering for Dr anderson
[2019-08-30] MEDS: MELATONIN 5 MG TABLETS PO SCH (21:48)
[2019-08-30] MEDS: LIDOCAINE PATCH REMOVAL MC SCH (21:48)
[2019-08-31] MEDS ORDERED: PIPERACILLIN/TAZOBACTAM 3.375 GM VIAL IVPB ONE ×3 (01:19→17:19)
[2019-08-31] MEDS ORDERED: DEXTROSE 5%-WATER - 50 ML IVPB ONE ×3 (01:19→17:20)
[2019-08-31] MEDS: PIPERACILLIN/TAZOB 3.375 GM 3.375 GM in DEXTROSE 5%-WATER - 50 ML IVPB SCH ×3 (01:52→18:13)
[2019-08-31] MEDS: VANCOMYCIN 1 GRAM (PRE-DOCKED) 1,000 MG/250 ML BAG IVPB SCH ×2 (02:34→15:05)
[2019-08-31] MEDS: LIDOCAINE 5% TOPICAL PATCH TP SCH (10:16)
[2019-08-31] MEDS: SENNOSIDES 8.6MG TABLET (FP) PO SCH ×2 (10:16→21:31)
[2019-08-31] MEDS: GENTAMICIN SO4 0.1% TOPICAL OINTMENT 15 GM/TUBE TUBE TP SCH ×2 (10:17→21:33)
--- NOTE | 2019-08-31 13:01 | PN ---
Progress Note, Physician History of Present Illness: leg improving swelling noted - Current Medication List Current Medications: Active Medications Diltiazem HCl (Cardizem Cd -) 120 mg PO [facility] Last Admin: 08/30/19 21:48 Dose: 120 mg Gentamicin Sulfate (Garamycin 0.1% Ointment -) 1 applic TP BID [facility] Last Admin: 08/31/19 10:17 Dose: 1 applic Piperacillin Sod/Tazobactam (Sod 3.375 gm/ Dextrose) 50 mls @ 100 mls/hr IVPB Q8H-IV [facility]; Protocol Last Admin: 08/31/19 10:16 Dose: 100 mls/hr Vancomycin HCl (Vancomycin (Pre-Docked)) 1,000 mg in 250 mls @ 166.667 mls/hr IVPB Q12H [facility]; Protocol Last Admin: 08/31/19 02:34 Dose: 166.667 mls/hr Lidocaine (Lidoderm Patch -) 1 patch TP DAILY [facility] Last Admin: 08/31/19 10:16 Dose: 1 patch Melatonin (Melatonin) 5 mg PO [facility] Last Admin: 08/30/19 21:48 Dose: 5 mg Miscellaneous (Lidoderm Patch Removal) 1 each MC DAILY@2200 [facility] Last Admin: 08/30/19 21:48 Dose: 1 each Rivaroxaban (Xarelto) 20 mg PO 1800 [facility] Last Admin: 08/30/19 17:15 Dose: 20 mg Senna (Senna -) 2 tab PO BID [facility] Last Admin: 08/31/19 10:16 Dose: 2 tab - Objective Vital Signs: Vital Signs Temperature 98.2 F 08/31/19 06:00 Pulse Rate 85 08/31/19 06:00 Respiratory Rate 18 08/31/19 06:00 Blood Pressure 148/83 08/31/19 06:00 O2 Sat by Pulse Oximetry (%) 96 08/30/19 21:00 Constitutional: Yes: Calm, Mild Distress Cardiovascular: Yes: S1, S2 Respiratory: Yes: Regular, CTA Bilaterally Gastrointestinal: Yes: Normal Bowel Sounds, Soft Musculoskeletal: Yes: WNL Extremities: Yes: Erythema (improving), Other Wound/Incision: Yes: Dressing Dry and Intact Neurological: Yes: Alert, Oriented Psychiatric: Yes: Alert, Oriented Labs: CBC, BMP 08/30/19 07:30 08/30/19 07:30 Assessment/Plan Problem List - Problems (1) Cellulitis Code(s): L03.90 - CELLULITIS, UNSPECIFIED Qualifiers: Site of cellulitis: extremity Site of cellulitis of extremity: lower extremity Laterality: left Qualified Code(s): L03.116 - Cellulitis of left lower limb (2) Afib Code(s): I48.91 - UNSPECIFIED ATRIAL FIBRILLATION (3) HTN (hypertension) Code(s): I10 - ESSENTIAL (PRIMARY) HYPERTENSION (4) GERD (gastroesophageal reflux disease) Code(s): K21.9 - GASTRO-ESOPHAGEAL REFLUX DISEASE WITHOUT ESOPHAGITIS (5) PVD (peripheral vascular disease) Code(s): I73.9 - PERIPHERAL VASCULAR DISEASE, UNSPECIFIED (6) Peripheral neuropathy Code(s): G62.9 - POLYNEUROPATHY, UNSPECIFIED (7) HLD (hyperlipidemia) Code(s): E78.5 - HYPERLIPIDEMIA, UNSPECIFIED plan continue abx elevation of the leg wound care need surgery to see the patient
[2019-08-31] MEDS: RIVAROXABAN 20 MG TABLET PO SCH (18:12)
--- NOTE | 2019-08-31 18:18 | PN ---
Progress Note, Physician History of Present Illness: DOING WELL - Current Medication List Current Medications: Active Medications Diltiazem HCl (Cardizem Cd -) 120 mg PO HS [facility] Last Admin: 08/30/19 21:48 Dose: 120 mg Gentamicin Sulfate (Garamycin 0.1% Ointment -) 1 applic TP BID [facility] Last Admin: 08/31/19 10:17 Dose: 1 applic Piperacillin Sod/Tazobactam (Sod 3.375 gm/ Dextrose) 50 mls @ 100 mls/hr IVPB Q8H-IV [facility]; Protocol Last Admin: 08/31/19 18:13 Dose: Not Given Vancomycin HCl (Vancomycin (Pre-Docked)) 1,000 mg in 250 mls @ 166.667 mls/hr IVPB Q12H [facility]; Protocol Last Admin: 08/31/19 15:05 Dose: 166.667 mls/hr Lidocaine (Lidoderm Patch -) 1 patch TP DAILY [facility] Last Admin: 08/31/19 10:16 Dose: 1 patch Melatonin (Melatonin) 5 mg PO [facility] Last Admin: 08/30/19 21:48 Dose: 5 mg Miscellaneous (Lidoderm Patch Removal) 1 each MC DAILY@2200 [facility] Last Admin: 08/30/19 21:48 Dose: 1 each Rivaroxaban (Xarelto) 20 mg PO 1800 [facility] Last Admin: 08/31/19 18:12 Dose: 20 mg Senna (Senna -) 2 tab PO BID [facility] Last Admin: 08/31/19 10:16 Dose: 2 tab - Objective Vital Signs: Vital Signs Temperature 98.1 F 08/31/19 18:00 Pulse Rate 93 H 08/31/19 18:00 Respiratory Rate 18 08/31/19 18:00 Blood Pressure 128/76 08/31/19 18:00 O2 Sat by Pulse Oximetry (%) 97 08/31/19 09:00 Constitutional: Yes: No Distress HENT: Yes: Atraumatic Neck: Yes: Supple Cardiovascular: Yes: Regular Rate and Rhythm Respiratory: Yes: CTA Bilaterally Gastrointestinal: Yes: Normal Bowel Sounds Extremities: Yes: Other (llex cellulitis) Edema: LLE: Trace Neurological: Yes: Alert, Oriented Labs: CBC, BMP 08/30/19 07:30 08/30/19 07:30 Problem List - Problems (1) Cellulitis Assessment/Plan: iv abx id on board podiatry/vascular consult wound care Code(s): L03.90 - CELLULITIS, UNSPECIFIED Qualifiers: Site of cellulitis: extremity Site of cellulitis of extremity: lower extremity Laterality: left Qualified Code(s): L03.116 - Cellulitis of left lower limb (2) HLD (hyperlipidemia) Code(s): E78.5 - HYPERLIPIDEMIA, UNSPECIFIED (3) HTN (hypertension) Assessment/Plan: on meds Code(s): I10 - ESSENTIAL (PRIMARY) HYPERTENSION (4) PVD (peripheral vascular disease) Code(s): I73.9 - PERIPHERAL VASCULAR DISEASE, UNSPECIFIED (5) Afib Assessment/Plan: on meds Code(s): I48.91 - UNSPECIFIED ATRIAL FIBRILLATION (6) GERD (gastroesophageal reflux disease) Code(s): K21.9 - GASTRO-ESOPHAGEAL REFLUX DISEASE WITHOUT ESOPHAGITIS Assessment/Plan covering for Dr anderson
[2019-08-31] MEDS: AMOX TR/POT CLAV 875MG/125MG TABLETS (FP) PO SCH (18:58)
[2019-08-31] MEDS: ACETAMINOPHEN 325 MG TABLET (FP) PO PRN (20:32)
[2019-08-31] MEDS: MELATONIN 5 MG TABLETS PO SCH (21:31)
[2019-08-31] MEDS: LIDOCAINE PATCH REMOVAL MC SCH (21:31)
[2019-09-01] MEDS: AMOX TR/POT CLAV 875MG/125MG TABLETS (FP) PO SCH ×2 (09:11→17:45)
[2019-09-01] MEDS: LIDOCAINE 5% TOPICAL PATCH TP SCH (09:11)
--- NOTE | 2019-09-01 11:17 | PN ---
Progress Note (short form) - Note Progress Note: FUV left foot. Pain improved. +improved interdigital maceration, -cellulitis, +draining abscess medial left leg, Cellulitis Abscess left leg Improved Tinea Pedis left foot Continue betadine dressing. Dr. Mobley for second opinion on abscess left leg. Discussed with Dr. Trejo. Awaiting vascular recommendation and or tx. Will follow.
[2019-09-01] MEDS: SENNOSIDES 8.6MG TABLET (FP) PO SCH ×2 (11:40→22:33)
[2019-09-01] MEDS: GENTAMICIN SO4 0.1% TOPICAL OINTMENT 15 GM/TUBE TUBE TP SCH ×2 (13:40→22:35)
[2019-09-01] MEDS ORDERED: ONDANSETRON 8 MG TABLET (FP) PO PRN (15:06)
[2019-09-01] MEDS: PREGABALIN 100 MG CAPSULE PO SCH ×2 (15:32→22:33)
[2019-09-01] MEDS: PANTOPRAZOLE 40 MG TABLET PO SCH (15:32)
[2019-09-01] MEDS ORDERED: PIPERACILLIN/TAZOBACTAM 3.375 GM VIAL IVPB ONE (18:09)
[2019-09-01] MEDS ORDERED: DEXTROSE 5%-WATER - 50 ML IVPB ONE (18:09)
[2019-09-01] MEDS: PIPERACILLIN/TAZOB 3.375 GM 3.375 GM in DEXTROSE 5%-WATER - 50 ML IVPB SCH (18:12)
[2019-09-01] MEDS: RIVAROXABAN 20 MG TABLET PO SCH (18:13)
--- NOTE | 2019-09-01 22:13 | PN ---
Progress Note, Physician History of Present Illness: Pt had no IV access and was put on augmentin however developed nausea - Current Medication List Current Medications: Active Medications Acetaminophen (Tylenol -) 650 mg PO Q6H PRN PRN Reason: FEVER Last Admin: 08/31/19 20:32 Dose: 650 mg Diltiazem HCl (Cardizem Cd -) 120 mg PO HS [facility] Last Admin: 08/31/19 21:31 Dose: 120 mg Gentamicin Sulfate (Garamycin 0.1% Ointment -) 1 applic TP BID [facility] Last Admin: 09/01/19 13:40 Dose: 1 applic Vancomycin HCl (Vancomycin (Pre-Docked)) 1,000 mg in 250 mls @ 166.667 mls/hr IVPB Q12H [facility]; Protocol Last Admin: 08/31/19 15:05 Dose: 166.667 mls/hr Piperacillin Sod/Tazobactam (Sod 3.375 gm/ Dextrose) 50 mls @ 100 mls/hr IVPB Q8H-IV [facility]; Protocol Last Admin: 09/01/19 18:12 Dose: 100 mls/hr Lidocaine (Lidoderm Patch -) 1 patch TP DAILY [facility] Last Admin: 09/01/19 09:11 Dose: 1 patch Melatonin (Melatonin) 5 mg PO HS [facility] Last Admin: 08/31/19 21:31 Dose: 5 mg Miscellaneous (Lidoderm Patch Removal) 1 each MC DAILY@2200 [facility] Last Admin: 08/31/19 21:31 Dose: 1 each Ondansetron HCl (Zofran -) 4 mg PO Q8H PRN PRN Reason: NAUSEA Last Admin: 09/01/19 15:31 Dose: 4 mg Pantoprazole Sodium (Protonix -) 40 mg PO DAILY [facility] Last Admin: 09/01/19 15:32 Dose: 40 mg Pregabalin (Lyrica -) 100 mg PO BID [facility] Last Admin: 09/01/19 15:32 Dose: 100 mg Rivaroxaban (Xarelto) 20 mg PO 1800 [facility] Last Admin: 09/01/19 18:13 Dose: 20 mg Senna (Senna -) 2 tab PO BID [facility] Last Admin: 09/01/19 11:40 Dose: 2 tab - Objective Vital Signs: Vital Signs Temperature 97.8 F 09/01/19 18:00 Pulse Rate 112 H 09/01/19 18:00 Respiratory Rate 18 09/01/19 18:00 Blood Pressure 157/98 09/01/19 18:00 O2 Sat by Pulse Oximetry (%) 97 09/01/19 09:00 Neck: Yes: WNL, Supple Cardiovascular: Yes: WNL, Regular Rate and Rhythm Respiratory: Yes: WNL, Regular, CTA Bilaterally Gastrointestinal: Yes: WNL, Normal Bowel Sounds, Soft, Abdomen, Obese Extremities: Yes: Other ((+) erythema LLE w/ open lesion) Labs: CBC, BMP 08/30/19 07:30 08/30/19 07:30 Problem List - Problems (1) Cellulitis Assessment/Plan: Cont IV Vanco/zosyn Cultures remain negative CT scan LLE was negative for abscess Will get vascular consult Will dc duragesic and trial of lidocaine Code(s): L03.90 - CELLULITIS, UNSPECIFIED Qualifiers: Site of cellulitis: extremity Site of cellulitis of extremity: lower extremity Laterality: left Qualified Code(s): L03.116 - Cellulitis of left lower limb (2) Afib Assessment/Plan: Cont xarelto Heart rate controlled Code(s): I48.91 - UNSPECIFIED ATRIAL FIBRILLATION (3) HTN (hypertension) Assessment/Plan: Cont cardizem BP stable Code(s): I10 - ESSENTIAL (PRIMARY) HYPERTENSION (4) GERD (gastroesophageal reflux disease) Code(s): K21.9 - GASTRO-ESOPHAGEAL REFLUX DISEASE WITHOUT ESOPHAGITIS (5) PVD (peripheral vascular disease) Code(s): I73.9 - PERIPHERAL VASCULAR DISEASE, UNSPECIFIED (6) Peripheral neuropathy Assessment/Plan: Cont lyrica Code(s): G62.9 - POLYNEUROPATHY, UNSPECIFIED (7) HLD (hyperlipidemia) Code(s): E78.5 - HYPERLIPIDEMIA, UNSPECIFIED
[2019-09-01] MEDS ORDERED: ONDANSETRON 4 MG/2 ML VIAL IVPUSH PRN (22:14)
[2019-09-01] MEDS: LIDOCAINE PATCH REMOVAL MC SCH (22:33)
[2019-09-01] MEDS: MELATONIN 5 MG TABLETS PO SCH (22:33)
[2019-09-02] MEDS ORDERED: DEXTROSE 5%-WATER - 50 ML IVPB ONE ×3 (01:36→17:14)
[2019-09-02] MEDS ORDERED: PIPERACILLIN/TAZOBACTAM 3.375 GM VIAL IVPB ONE ×3 (01:36→17:14)
[2019-09-02] MEDS: PIPERACILLIN/TAZOB 3.375 GM 3.375 GM in DEXTROSE 5%-WATER - 50 ML IVPB SCH ×3 (02:35→17:17)
[2019-09-02 07:53] LABS: BASO % 1.1 % (0-2.0); EOS % 1.3 % (0-4.5); HEMATOCRIT 41.2 % (32.4-45.2); HEMOGLOBIN 13.6 GM/dL (10.7-15.3); LYMPH % 12.1 % (8-40); MCH 27.7 pg (25.7-33.7); MCHC 33.1 g/dl (32.0-36.0); MEAN CELL VOLUME 83.9 fl (80-96); MEAN PLT VOLUME 7.1 fl (7.5-11.1); MONO % 11.9 % (3.8-10.2); NEUT % 73.6 % (42.8-82.8); PLATELET COUNT 411 K/MM3 (134-434); RBC 4.92 M/mm3 (3.60-5.2); RDW 14.3 % (11.6-15.6); WHITE BLOOD COUNT 6.8 K/mm3 (4.0-10.0)
[2019-09-02 08:20] LABS: BILIRUBIN,TOTAL 0.5 mg/dL (0.2-1); BLOOD UREA NITROGEN 12.4 mg/dL (7-18); CREATININE 0.5 mg/dL (0.55-1.3); TOT PROT 6.7 g/dl (6.4-8.2)
[2019-09-02] MEDS: GENTAMICIN SO4 0.1% TOPICAL OINTMENT 15 GM/TUBE TUBE TP SCH ×2 (10:29→21:12)
[2019-09-02] MEDS: PREGABALIN 100 MG CAPSULE PO SCH ×2 (10:29→21:13)
[2019-09-02] MEDS: PANTOPRAZOLE 40 MG TABLET PO SCH (10:29)
[2019-09-02] MEDS: SENNOSIDES 8.6MG TABLET (FP) PO SCH ×2 (10:29→21:13)
[2019-09-02] MEDS: LIDOCAINE 5% TOPICAL PATCH TP SCH (10:29)
--- NOTE | 2019-09-02 11:06 | CONSULT ---
- Consultation REQUESTING PROVIDER: CONSULT REQUEST: We have been asked to surgically evaluate this patient for Left leg cellultits/wound. PCP:Lyla Barakat HISTORY OF PRESENT ILLNESS: : 79 y/o female snet in from her knocker off's office for worsening cellulitis and chronic wd to her left foot. She normally wears b/l compression stocking for her venous stasis disease but was unable to on the left because of the foot infection. She is being treated for a fungal f oot infection. She is having pain to the left lower ext, some improvement in swelling. Now with draining open wound to left leg. The knocker off are applying betdien daily to the left foot ulcer. PMHx: HTN, HLD, Afib, chronic lower ext neuropathy, MANDEEP, chronic venous stasis disease, pre-diabetic PSHx: Right knee surgery Home Medications Medication Instructions Recorded Armodafinil 1 tab PO DAILY 02/23/18 Rivaroxaban [Xarelto -] 1 tab PO DAILY 02/23/18 Diltiazem HCl [Cartia Xt] 1 tab PO HS 05/20/19 Pravastatin Sodium 1 tab PO HS 05/20/19 Sennosides [Senna -] 2 tab PO BID 05/20/19 Telmisartan 1 tab PO HS 05/20/19 Melatonin 5 mg PO HS tab 05/25/19 Omeprazole 20 mg PO [facility] 07/17/19 Pregabalin [Lyrica -] 250 mg PO BID #1 capsule MDD 2 07/21/19 traMADol HCL [Ultram -] 50 mg PO Q8H PRN #30 tablet MDD 3 07/21/19 Allergies Allergy/AdvReac Type Severity Reaction Status Date / Time codeine Allergy Verified 08/23/19 16:57 morphine Allergy Verified 08/23/19 16:57 Sulfa (Sulfonamide Allergy Verified 08/23/19 16:57 Antibiotics) PHYSICAL EXAM: GENERAL: Awake, alert, and fully oriented, in no acute distress. LOWER EXTREMITIES: 2+DP/PT pulses, warm, well-perfused. Left 2/3-hammer toe d eformity. small eschar appxomately 1 x 1 cm to dorsal aspect of 3rd toe. No erythema. Left leg with medial lower ext wound approx 1 x 1 cm with necrotic tissue at the wound base, surrounding erythema, induration and tenderness to touch. chronic venous stasis changes. RLE: varicosities with chronic venous stasis changes. NEUROLOGICAL: Normal speech, gait not observed. PSYCH: Cooperative. Good eye contact. Appropriate mood and affect. Vital Signs Temperature 97.3 F L 09/02/19 09:47 Pulse Rate 99 H 09/02/19 09:47 Respiratory Rate 18 09/02/19 09:47 Blood Pressure 123/74 09/02/19 09:47 O2 Sat by Pulse Oximetry (%) 98 09/01/19 21:00 Lab Results WBC 6.8 K/mm3 (4.0-10.0) 09/02/19 07:20 RBC 4.92 M/mm3 (3.60-5.2) 09/02/19 07:20 Hgb 13.6 GM/dL (10.7-15.3) 09/02/19 07:20 Hct 41.2 % (32.4-45.2) 09/02/19 07:20 MCV 83.9 fl (80-96) 09/02/19 07:20 MCHC 33.1 g/dl (32.0-36.0) 09/02/19 07:20 RDW 14.3 % (11.6-15.6) 09/02/19 07:20 Plt Count 411 K/MM3 (134-434) 09/02/19 07:20 Sodium 134 mmol/L (136-145) L 09/02/19 07:20 Potassium 4.0 mmol/L (3.5-5.1) 09/02/19 07:20 Chloride 100 mmol/L (98-107) 09/02/19 07:20 Carbon Dioxide 28 mmol/L (21-32) 09/02/19 07:20 Anion Gap 7 MMOL/L (8-16) L 09/02/19 07:20 BUN 12.4 mg/dL (7-18) 09/02/19 07:20 Creatinine 0.5 mg/dL (0.55-1.3) L 09/02/19 07:20 Random Glucose 89 mg/dL (74-106) 09/02/19 07:20 Calcium 9.0 mg/dL (8.5-10.1) 09/02/19 07:[address] scan:negative for abscess Microbiology 08/23/19 20:15 Blood - Peripheral Venous Blood Culture - Final NO GROWTH AFTER 5 DAYS INCUBATION 08/23/19 20:15 Blood - Peripheral Venous Blood Culture - Final NO GROWTH AFTER 5 DAYS INCUBATION Problem List - Problems (1) Cellulitis Assessment/Plan: Pt wtih cellultis and wound of left lower ext, probable superficial infected thrombophlebitis. Pt was seen today wtih Dr. Mobley Plan is to hold the xarelto, spoke with Dr. Baarkat to confirm that it may be held. Pt on xarelto for afib. Will completed bedside I&D tomorrow and monitor for improvement. Continue local wound care to left foot by podiatry. Warm compress to indurated area and keep LLE covered. Elevate LLE IV abx Problems reviewed: Yes Code(s): L03.90 - CELLULITIS, UNSPECIFIED Qualifiers: Site of cellulitis: extremity Site of cellulitis of extremity: lower extremity Laterality: left Qualified Code(s): L03.116 - Cellulitis of left lower limb
--- NOTE | 2019-09-02 11:31 | PN ---
Progress Note, Physician History of Present Illness: stable wound looking well - Current Medication List Current Medications: Active Medications Acetaminophen (Tylenol -) 650 mg PO Q6H PRN PRN Reason: FEVER Last Admin: 08/31/19 20:32 Dose: 650 mg Documented by: Diltiazem HCl (Cardizem Cd -) 120 mg PO HS [facility] Last Admin: 09/01/19 22:33 Dose: 120 mg Documented by: Gentamicin Sulfate (Garamycin 0.1% Ointment -) 1 applic TP BID [facility] Last Admin: 09/02/19 10:29 Dose: 1 applic Documented by: Vancomycin HCl (Vancomycin (Pre-Docked)) 1,000 mg in 250 mls @ 166.667 mls/hr IVPB Q12H [facility]; Protocol Last Admin: 08/31/19 15:05 Dose: 166.667 mls/hr Documented by: Piperacillin Sod/Tazobactam (Sod 3.375 gm/ Dextrose) 50 mls @ 100 mls/hr IVPB Q8H-IV [facility]; Protocol Last Admin: 09/02/19 10:28 Dose: 100 mls/hr Documented by: Lidocaine (Lidoderm Patch -) 1 patch TP DAILY [facility] Last Admin: 09/02/19 10:29 Dose: 1 patch Documented by: Melatonin (Melatonin) 5 mg PO HS [facility] Last Admin: 09/01/19 22:33 Dose: 5 mg Documented by: Miscellaneous (Lidoderm Patch Removal) 1 each [facility] DAILY@2200 [facility] Last Admin: 09/01/19 22:33 Dose: 1 each Documented by: Ondansetron HCl (Zofran Injection) 4 mg IVPUSH Q6H PRN PRN Reason: NAUSEA AND/OR VOMITING Pantoprazole Sodium (Protonix -) 40 mg PO DAILY [facility] Last Admin: 09/02/19 10:29 Dose: 40 mg Documented by: Pregabalin (Lyrica -) 100 mg PO BID [facility] Last Admin: 09/02/19 10:29 Dose: 100 mg Documented by: Rivaroxaban (Xarelto) 20 mg PO 1800 [facility] Last Admin: 09/01/19 18:13 Dose: 20 mg Documented by: Senna (Senna -) 2 tab PO BID [facility] Last Admin: 09/02/19 10:29 Dose: 2 tab Documented by: - Objective Vital Signs: Vital Signs Temperature 97.3 F L 09/02/19 09:47 Pulse Rate 99 H 09/02/19 09:47 Respiratory Rate 18 09/02/19 09:47 Blood Pressure 123/74 09/02/19 09:47 O2 Sat by Pulse Oximetry (%) 98 09/01/19 21:00 Constitutional: Yes: No Distress, Calm Cardiovascular: Yes: S1, S2 Respiratory: Yes: Regular, CTA Bilaterally Gastrointestinal: Yes: Normal Bowel Sounds, Soft Musculoskeletal: Yes: WNL Extremities: Yes: Other Wound/Incision: Yes: Dressing Removed Neurological: Yes: Alert, Oriented Psychiatric: Yes: Alert, Oriented Labs: CBC, BMP 09/02/19 07:20 09/02/19 07:20 Assessment/Plan Problem List - Problems (1) Cellulitis Code(s): L03.90 - CELLULITIS, UNSPECIFIED Qualifiers: Site of cellulitis: extremity Site of cellulitis of extremity: lower extremity Laterality: left Qualified Code(s): L03.116 - Cellulitis of left lower limb (2) Afib Code(s): I48.91 - UNSPECIFIED ATRIAL FIBRILLATION (3) HTN (hypertension) Code(s): I10 - ESSENTIAL (PRIMARY) HYPERTENSION (4) GERD (gastroesophageal reflux disease) Code(s): K21.9 - GASTRO-ESOPHAGEAL REFLUX DISEASE WITHOUT ESOPHAGITIS (5) PVD (peripheral vascular disease) Code(s): I73.9 - PERIPHERAL VASCULAR DISEASE, UNSPECIFIED (6) Peripheral neuropathy Code(s): G62.9 - POLYNEUROPATHY, UNSPECIFIED (7) HLD (hyperlipidemia) Code(s): E78.5 - HYPERLIPIDEMIA, UNSPECIFIED plan continue abx elevation of the leg wound care
--- NOTE | 2019-09-02 11:34 | PN ---
Progress Note, Physician History of Present Illness: stable wound looking well plan to take patient to or tomorrow - Current Medication List Current Medications: Active Medications Acetaminophen (Tylenol -) 650 mg PO Q6H PRN PRN Reason: FEVER Last Admin: 08/31/19 20:32 Dose: 650 mg Documented by: Diltiazem HCl (Cardizem Cd -) 120 mg PO HS [facility] Last Admin: 09/01/19 22:33 Dose: 120 mg Documented by: Gentamicin Sulfate (Garamycin 0.1% Ointment -) 1 applic TP BID [facility] Last Admin: 09/02/19 10:29 Dose: 1 applic Documented by: Vancomycin HCl (Vancomycin (Pre-Docked)) 1,000 mg in 250 mls @ 166.667 mls/hr IVPB Q12H [facility]; Protocol Last Admin: 08/31/19 15:05 Dose: 166.667 mls/hr Documented by: Piperacillin Sod/Tazobactam (Sod 3.375 gm/ Dextrose) 50 mls @ 100 mls/hr IVPB Q8H-IV [facility]; Protocol Last Admin: 09/02/19 10:28 Dose: 100 mls/hr Documented by: Lidocaine (Lidoderm Patch -) 1 patch TP DAILY [facility] Last Admin: 09/02/19 10:29 Dose: 1 patch Documented by: Melatonin (Melatonin) 5 mg PO [facility] Last Admin: 09/01/19 22:33 Dose: 5 mg Documented by: Miscellaneous (Lidoderm Patch Removal) 1 each MC DAILY@2200 [facility] Last Admin: 09/01/19 22:33 Dose: 1 each Documented by: Ondansetron HCl (Zofran Injection) 4 mg IVPUSH Q6H PRN PRN Reason: NAUSEA AND/OR VOMITING Pantoprazole Sodium (Protonix -) 40 mg PO DAILY [facility] Last Admin: 09/02/19 10:29 Dose: 40 mg Documented by: Pregabalin (Lyrica -) 100 mg PO BID [facility] Last Admin: 09/02/19 10:29 Dose: 100 mg Documented by: Rivaroxaban (Xarelto) 20 mg PO 1800 [facility] Last Admin: 09/01/19 18:13 Dose: 20 mg Documented by: Senna (Senna -) 2 tab PO BID [facility] Last Admin: 09/02/19 10:29 Dose: 2 tab Documented by: - Objective Vital Signs: Vital Signs Temperature 97.3 F L 09/02/19 09:47 Pulse Rate 99 H 09/02/19 09:47 Respiratory Rate 18 09/02/19 09:47 Blood Pressure 123/74 09/02/19 09:47 O2 Sat by Pulse Oximetry (%) 98 09/01/19 21:00 Constitutional: Yes: No Distress, Calm Cardiovascular: Yes: S1, S2 Gastrointestinal: Yes: Normal Bowel Sounds, Soft Musculoskeletal: Yes: WNL Extremities: Yes: Other Wound/Incision: Yes: Dressing Dry and Intact Neurological: Yes: Alert, Oriented Labs: CBC, BMP 09/02/19 07:20 09/02/19 07:20 Assessment/Plan Problem List - Problems (1) Cellulitis Code(s): L03.90 - CELLULITIS, UNSPECIFIED Qualifiers: Site of cellulitis: extremity Site of cellulitis of extremity: lower extremity Laterality: left Qualified Code(s): L03.116 - Cellulitis of left lower limb (2) Afib Code(s): I48.91 - UNSPECIFIED ATRIAL FIBRILLATION (3) HTN (hypertension) Code(s): I10 - ESSENTIAL (PRIMARY) HYPERTENSION (4) GERD (gastroesophageal reflux disease) Code(s): K21.9 - GASTRO-ESOPHAGEAL REFLUX DISEASE WITHOUT ESOPHAGITIS (5) PVD (peripheral vascular disease) Code(s): I73.9 - PERIPHERAL VASCULAR DISEASE, UNSPECIFIED (6) Peripheral neuropathy Code(s): G62.9 - POLYNEUROPATHY, UNSPECIFIED (7) HLD (hyperlipidemia) Code(s): E78.5 - HYPERLIPIDEMIA, UNSPECIFIED plan continue abx elevation of the leg wound care plan for surgery tomorrow
--- NOTE | 2019-09-02 17:43 | PN ---
Progress Note, Physician History of Present Illness: DOING WELL - Current Medication List Current Medications: Active Medications Acetaminophen (Tylenol -) 650 mg PO Q6H PRN PRN Reason: FEVER Last Admin: 08/31/19 20:32 Dose: 650 mg Documented by: Diltiazem HCl (Cardizem Cd -) 120 mg PO HS [facility] Last Admin: 09/01/19 22:33 Dose: 120 mg Documented by: Gentamicin Sulfate (Garamycin 0.1% Ointment -) 1 applic TP BID [facility] Last Admin: 09/02/19 10:29 Dose: 1 applic Documented by: Vancomycin HCl (Vancomycin (Pre-Docked)) 1,000 mg in 250 mls @ 166.667 mls/hr IVPB Q12H [facility]; Protocol Last Admin: 08/31/19 15:05 Dose: 166.667 mls/hr Documented by: Piperacillin Sod/Tazobactam (Sod 3.375 gm/ Dextrose) 50 mls @ 100 mls/hr IVPB Q8H-IV [facility]; Protocol Last Admin: 09/02/19 17:17 Dose: 100 mls/hr Documented by: Lidocaine (Lidoderm Patch -) 1 patch TP DAILY [facility] Last Admin: 09/02/19 10:29 Dose: 1 patch Documented by: Melatonin (Melatonin) 5 mg PO [facility] Last Admin: 09/01/19 22:33 Dose: 5 mg Documented by: Miscellaneous (Lidoderm Patch Removal) 1 each MC DAILY@2200 [facility] Last Admin: 09/01/19 22:33 Dose: 1 each Documented by: Ondansetron HCl (Zofran Injection) 4 mg IVPUSH Q6H PRN PRN Reason: NAUSEA AND/OR VOMITING Pantoprazole Sodium (Protonix -) 40 mg PO DAILY [facility] Last Admin: 09/02/19 10:29 Dose: 40 mg Documented by: Pregabalin (Lyrica -) 100 mg PO BID [facility] Last Admin: 09/02/19 10:29 Dose: 100 mg Documented by: Rivaroxaban (Xarelto) 20 mg PO 1800 [facility] Last Admin: 09/01/19 18:13 Dose: 20 mg Documented by: Senna (Senna -) 2 tab PO BID [facility] Last Admin: 09/02/19 10:29 Dose: 2 tab Documented by: - Objective Vital Signs: Vital Signs Temperature 98.5 F 09/02/19 13:00 Pulse Rate 108 H 09/02/19 13:00 Respiratory Rate 18 09/02/19 13:00 Blood Pressure 120/72 09/02/19 13:00 O2 Sat by Pulse Oximetry (%) 98 09/02/19 09:00 Constitutional: Yes: No Distress HENT: Yes: Atraumatic Neck: Yes: Supple Cardiovascular: Yes: Regular Rate and Rhythm Respiratory: Yes: CTA Bilaterally Gastrointestinal: Yes: Normal Bowel Sounds Extremities: Yes: Other (llex cellulitis) Neurological: Yes: Alert, Oriented Labs: CBC, BMP 09/02/19 07:20 09/02/19 07:20 Problem List - Problems (1) Cellulitis Assessment/Plan: iv abx id on board podiatry/vascular consult wound care for I and d tomorrow Code(s): L03.90 - CELLULITIS, UNSPECIFIED Qualifiers: Site of cellulitis: extremity Site of cellulitis of extremity: lower extremity Laterality: left Qualified Code(s): L03.116 - Cellulitis of left lower limb (2) HLD (hyperlipidemia) Code(s): E78.5 - HYPERLIPIDEMIA, UNSPECIFIED (3) HTN (hypertension) Assessment/Plan: on meds Code(s): I10 - ESSENTIAL (PRIMARY) HYPERTENSION (4) PVD (peripheral vascular disease) Code(s): I73.9 - PERIPHERAL VASCULAR DISEASE, UNSPECIFIED (5) Afib Assessment/Plan: on meds Code(s): I48.91 - UNSPECIFIED ATRIAL FIBRILLATION (6) GERD (gastroesophageal reflux disease) Code(s): K21.9 - GASTRO-ESOPHAGEAL REFLUX DISEASE WITHOUT ESOPHAGITIS
[2019-09-02] MEDS: MELATONIN 5 MG TABLETS PO SCH (21:13)
[2019-09-02] MEDS: LIDOCAINE PATCH REMOVAL MC SCH (21:14)
[2019-09-03] MEDS ORDERED: DEXTROSE 5%-WATER - 50 ML IVPB ONE ×3 (01:53→16:27)
[2019-09-03] MEDS ORDERED: PIPERACILLIN/TAZOBACTAM 3.375 GM VIAL IVPB ONE ×3 (01:53→16:26)
[2019-09-03] MEDS: PIPERACILLIN/TAZOB 3.375 GM 3.375 GM in DEXTROSE 5%-WATER - 50 ML IVPB SCH ×3 (02:31→17:50)
[2019-09-03] MEDS ORDERED: PT OWN MED DRAWER 7, Y5N ONE (08:56)
[2019-09-03] MEDS: SENNOSIDES 8.6MG TABLET (FP) PO SCH ×2 (09:00→21:21)
[2019-09-03] MEDS: PREGABALIN 100 MG CAPSULE PO SCH ×2 (09:01→21:21)
[2019-09-03] MEDS: LIDOCAINE 5% TOPICAL PATCH TP SCH (09:01)
[2019-09-03] MEDS: PANTOPRAZOLE 40 MG TABLET PO SCH (09:01)
[2019-09-03] MEDS: GENTAMICIN SO4 0.1% TOPICAL OINTMENT 15 GM/TUBE TUBE TP SCH ×2 (09:02→21:21)
[2019-09-03] MEDS ORDERED: LIDOCAINE HCL 1%, 10 MG/ML (20ML VIAL) ONE (10:29)
--- NOTE | 2019-09-03 11:20 | PROC ---
Incision and Drainage Indication/Location: LLE abscess/cellulitis Risks and Benefits Explained: Yes Consent on Chart: Yes Betadine cleansed: Yes Anesthesia: 1% Lidocaine Blade Size: 10 Drainage: No pus Irrigated with Normal Saline: Yes Iodinated Packin/4 in Sterile Dressing Applied: Yes - Remarks Remarks: Necrotic plug excised. Using edge of blade to curette circumfrentially as well as base. Wound explored/probed with mosquito clamp. Culture sent.
--- NOTE | 2019-09-03 11:33 | PN ---
Progress Note, Physician History of Present Illness: collection drained patient stable cx send - Current Medication List Current Medications: Active Medications Acetaminophen (Tylenol -) 650 mg PO Q6H PRN PRN Reason: FEVER Last Admin: 08/31/19 20:32 Dose: 650 mg Documented by: Diltiazem HCl (Cardizem Cd -) 120 mg PO HS [facility] Last Admin: 09/02/19 21:13 Dose: 120 mg Documented by: Gentamicin Sulfate (Garamycin 0.1% Ointment -) 1 applic TP BID [facility] Last Admin: 09/03/19 09:02 Dose: Not Given Documented by: Vancomycin HCl (Vancomycin (Pre-Docked)) 1,000 mg in 250 mls @ 166.667 mls/hr IVPB Q12H [facility]; Protocol Last Admin: 08/31/19 15:05 Dose: 166.667 mls/hr Documented by: Piperacillin Sod/Tazobactam (Sod 3.375 gm/ Dextrose) 50 mls @ 100 mls/hr IVPB Q8H-IV [facility]; Protocol Last Admin: 09/03/19 09:01 Dose: 100 mls/hr Documented by: Lidocaine (Lidoderm Patch -) 1 patch TP DAILY [facility] Last Admin: 09/03/19 09:01 Dose: 1 patch Documented by: Lidocaine HCl (Xylocaine 1%) 20 ml SQ ONCE ONE Stop: 09/03/19 11:22 Melatonin (Melatonin) 5 mg PO [facility] Last Admin: 09/02/19 21:13 Dose: 5 mg Documented by: Miscellaneous (Lidoderm Patch Removal) 1 each MC DAILY@2200 [facility] Last Admin: 09/02/19 21:14 Dose: 1 each Documented by: Ondansetron HCl (Zofran Injection) 4 mg IVPUSH Q6H PRN PRN Reason: NAUSEA AND/OR VOMITING Pantoprazole Sodium (Protonix -) 40 mg PO DAILY [facility] Last Admin: 09/03/19 09:01 Dose: 40 mg Documented by: Pregabalin (Lyrica -) 100 mg PO BID [facility] Last Admin: 09/03/19 09:01 Dose: 100 mg Documented by: Rivaroxaban (Xarelto) 20 mg PO 1800 [facility] Last Admin: 09/01/19 18:13 Dose: 20 mg Documented by: Senna (Senna -) 2 tab PO BID [facility] Last Admin: 09/03/19 09:00 Dose: 2 tab Documented by: - Objective Vital Signs: Vital Signs Temperature 98.4 F 09/03/19 09:05 Pulse Rate 108 H 09/03/19 09:05 Respiratory Rate 18 09/03/19 09:05 Blood Pressure 153/76 09/03/19 09:05 O2 Sat by Pulse Oximetry (%) 99 09/03/19 09:00 Constitutional: Yes: No Distress, Calm Cardiovascular: Yes: S1, S2 Respiratory: Yes: Regular, CTA Bilaterally Gastrointestinal: Yes: Normal Bowel Sounds, Soft Musculoskeletal: Yes: WNL Extremities: Yes: Other Wound/Incision: Yes: Dressing Dry and Intact Neurological: Yes: Alert, Oriented Psychiatric: Yes: Alert, Oriented Labs: CBC, BMP 09/02/19 07:20 09/02/19 07:20 Assessment/Plan Problem List - Problems (1) Cellulitis Code(s): L03.90 - CELLULITIS, UNSPECIFIED Qualifiers: Site of cellulitis: extremity Site of cellulitis of extremity: lower extremity Laterality: left Qualified Code(s): L03.116 - Cellulitis of left lower limb (2) Afib Code(s): I48.91 - UNSPECIFIED ATRIAL FIBRILLATION (3) HTN (hypertension) Code(s): I10 - ESSENTIAL (PRIMARY) HYPERTENSION (4) GERD (gastroesophageal reflux disease) Code(s): K21.9 - GASTRO-ESOPHAGEAL REFLUX DISEASE WITHOUT ESOPHAGITIS (5) PVD (peripheral vascular disease) Code(s): I73.9 - PERIPHERAL VASCULAR DISEASE, UNSPECIFIED (6) Peripheral neuropathy Code(s): G62.9 - POLYNEUROPATHY, UNSPECIFIED (7) HLD (hyperlipidemia) Code(s): E78.5 - HYPERLIPIDEMIA, UNSPECIFIED plan continue abx elevation of the leg wound care await for cx reports
[2019-09-03] MEDS ORDERED: LIDOCAINE HCL 1%, 10 MG/ML (20ML VIAL) NR ONE (11:45)
--- NOTE | 2019-09-03 12:23 | PN ---
Progress Note, Physician History of Present Illness: Follow up left foot. Pain improved in foot. Having pain in leg after debridement today bedside. - Current Medication List Current Medications: Active Medications Acetaminophen (Tylenol -) 650 mg PO Q6H PRN PRN Reason: FEVER Last Admin: 08/31/19 20:32 Dose: 650 mg Documented by: Diltiazem HCl (Cardizem Cd -) 120 mg PO HS [facility] Last Admin: 09/02/19 21:13 Dose: 120 mg Documented by: Gentamicin Sulfate (Garamycin 0.1% Ointment -) 1 applic TP BID [facility] Last Admin: 09/03/19 09:02 Dose: Not Given Documented by: Vancomycin HCl (Vancomycin (Pre-Docked)) 1,000 mg in 250 mls @ 166.667 mls/hr IVPB Q12H [facility]; Protocol Last Admin: 08/31/19 15:05 Dose: 166.667 mls/hr Documented by: Piperacillin Sod/Tazobactam (Sod 3.375 gm/ Dextrose) 50 mls @ 100 mls/hr IVPB Q8H-IV [facility]; Protocol Last Admin: 09/03/19 09:01 Dose: 100 mls/hr Documented by: Lidocaine (Lidoderm Patch -) 1 patch TP DAILY [facility] Last Admin: 09/03/19 09:01 Dose: 1 patch Documented by: Melatonin (Melatonin) 5 mg PO HS [facility] Last Admin: 09/02/19 21:13 Dose: 5 mg Documented by: Miscellaneous (Lidoderm Patch Removal) 1 each MC DAILY@2200 [facility] Last Admin: 09/02/19 21:14 Dose: 1 each Documented by: Ondansetron HCl (Zofran Injection) 4 mg IVPUSH Q6H PRN PRN Reason: NAUSEA AND/OR VOMITING Pantoprazole Sodium (Protonix -) 40 mg PO DAILY [facility] Last Admin: 09/03/19 09:01 Dose: 40 mg Documented by: Pregabalin (Lyrica -) 100 mg PO BID [facility] Last Admin: 09/03/19 09:01 Dose: 100 mg Documented by: Rivaroxaban (Xarelto) 20 mg PO 1800 [facility] Last Admin: 09/01/19 18:13 Dose: 20 mg Documented by: Senna (Senna -) 2 tab PO BID [facility] Last Admin: 09/03/19 09:00 Dose: 2 tab Documented by: - Objective Vital Signs: Vital Signs Temperature 98.4 F 09/03/19 09:05 Pulse Rate 108 H 09/03/19 09:05 Respiratory Rate 18 09/03/19 09:05 Blood Pressure 153/76 09/03/19 09:05 O2 Sat by Pulse Oximetry (%) 99 09/03/19 09:00 Extremities: Yes: Other (improved left foot, +dressing left leg,) Labs: CBC, BMP 09/02/19 07:20 09/02/19 07:20 Assessment/Plan tinea pedis edema Betadine between toes left foot and dorsum of foot. Read and appreciated surgical PA note. Will follow till DC. No podiatric surgical intervention at this time.
[2019-09-03] MEDS: ACETAMINOPHEN 500 MG TABLET (FP) PO PRN ×2 (13:24→20:10)
[2019-09-03] MEDS: MELATONIN 5 MG TABLETS PO SCH (21:21)
[2019-09-03] MEDS: LIDOCAINE PATCH REMOVAL MC SCH (21:22)
--- NOTE | 2019-09-03 23:41 | PN ---
Progress Note, Physician - Current Medication List Current Medications: Active Medications Acetaminophen (Tylenol -) 650 mg PO Q6H PRN PRN Reason: FEVER Last Admin: 08/31/19 20:32 Dose: 650 mg Documented by: Acetaminophen (Tylenol -) 1,000 mg PO Q6H PRN PRN Reason: PAIN LEVEL 4 - 6 Last Admin: 09/03/19 20:10 Dose: 1,000 mg Documented by: Diltiazem HCl (Cardizem Cd -) 120 mg PO HS [facility] Last Admin: 09/03/19 21:21 Dose: 120 mg Documented by: Gentamicin Sulfate (Garamycin 0.1% Ointment -) 1 applic TP BID [facility] Last Admin: 09/03/19 21:21 Dose: Not Given Documented by: Vancomycin HCl (Vancomycin (Pre-Docked)) 1,000 mg in 250 mls @ 166.667 mls/hr IVPB Q12H [facility]; Protocol Last Admin: 08/31/19 15:05 Dose: 166.667 mls/hr Documented by: Piperacillin Sod/Tazobactam (Sod 3.375 gm/ Dextrose) 50 mls @ 100 mls/hr IVPB Q8H-IV [facility]; Protocol Last Admin: 09/03/19 17:50 Dose: 100 mls/hr Documented by: Lidocaine (Lidoderm Patch -) 1 patch TP DAILY [facility] Last Admin: 09/03/19 09:01 Dose: 1 patch Documented by: Melatonin (Melatonin) 5 mg PO HS [facility] Last Admin: 09/03/19 21:21 Dose: 5 mg Documented by: Miscellaneous (Lidoderm Patch Removal) 1 each MC DAILY@2200 [facility] Last Admin: 09/03/19 21:22 Dose: 1 each Documented by: Ondansetron HCl (Zofran Injection) 4 mg IVPUSH Q6H PRN PRN Reason: NAUSEA AND/OR VOMITING Pantoprazole Sodium (Protonix -) 40 mg PO DAILY [facility] Last Admin: 09/03/19 09:01 Dose: 40 mg Documented by: Pregabalin (Lyrica -) 100 mg PO BID [facility] Last Admin: 09/03/19 21:21 Dose: 100 mg Documented by: Rivaroxaban (Xarelto) 20 mg PO 1800 [facility] Last Admin: 09/01/19 18:13 Dose: 20 mg Documented by: Senna (Senna -) 2 tab PO BID [facility] Last Admin: 09/03/19 21:21 Dose: 2 tab Documented by: - Objective Vital Signs: Vital Signs Temperature 97.7 F 09/03/19 18:00 Pulse Rate 108 H 09/03/19 18:00 Respiratory Rate 18 09/03/19 18:00 Blood Pressure 124/73 09/03/19 18:00 O2 Sat by Pulse Oximetry (%) 99 09/03/19 09:00 Labs: CBC, BMP 09/02/19 07:20 09/02/19 07:20 Problem List - Problems (1) Cellulitis Code(s): L03.90 - CELLULITIS, UNSPECIFIED Qualifiers: Site of cellulitis: extremity Site of cellulitis of extremity: lower extremity Laterality: left Qualified Code(s): L03.116 - Cellulitis of left lower limb (2) Afib Code(s): I48.91 - UNSPECIFIED ATRIAL FIBRILLATION (3) HTN (hypertension) Code(s): I10 - ESSENTIAL (PRIMARY) HYPERTENSION (4) GERD (gastroesophageal reflux disease) Code(s): K21.9 - GASTRO-ESOPHAGEAL REFLUX DISEASE WITHOUT ESOPHAGITIS (5) PVD (peripheral vascular disease) Code(s): I73.9 - PERIPHERAL VASCULAR DISEASE, UNSPECIFIED (6) Peripheral neuropathy Code(s): G62.9 - POLYNEUROPATHY, UNSPECIFIED (7) HLD (hyperlipidemia) Code(s): E78.5 - HYPERLIPIDEMIA, UNSPECIFIED
[2019-09-04] MEDS ORDERED: PIPERACILLIN/TAZOBACTAM 3.375 GM VIAL IVPB ONE ×3 (00:56→17:57)
[2019-09-04] MEDS ORDERED: DEXTROSE 5%-WATER - 50 ML IVPB ONE ×3 (00:57→17:57)
[2019-09-04] MEDS: PIPERACILLIN/TAZOB 3.375 GM 3.375 GM in DEXTROSE 5%-WATER - 50 ML IVPB SCH ×3 (01:57→18:22)
[2019-09-04] MEDS: PANTOPRAZOLE 40 MG TABLET PO SCH (09:49)
[2019-09-04] MEDS: SENNOSIDES 8.6MG TABLET (FP) PO SCH ×2 (09:49→22:31)
[2019-09-04] MEDS: PREGABALIN 100 MG CAPSULE PO SCH ×2 (09:49→22:31)
[2019-09-04] MEDS: ACETAMINOPHEN 500 MG TABLET (FP) PO PRN ×2 (09:49→22:46)
[2019-09-04] MEDS: GENTAMICIN SO4 0.1% TOPICAL OINTMENT 15 GM/TUBE TUBE TP SCH ×2 (09:50→22:32)
[2019-09-04] MEDS: LIDOCAINE 5% TOPICAL PATCH TP SCH (09:50)
--- NOTE | 2019-09-04 12:19 | PN ---
Progress Note (short form) - Note Progress Note: Complains of pain in calf. Open wound packed with Iodoform. No erythema. Small amount of bloody drainage. Dressing change with packing QOD. VNS after discharge. I will follow in office.
--- NOTE | 2019-09-04 13:26 | PN ---
Progress Note, Physician History of Present Illness: stable no new issues - Current Medication List Current Medications: Active Medications Acetaminophen (Tylenol -) 650 mg PO Q6H PRN PRN Reason: FEVER Last Admin: 08/31/19 20:32 Dose: 650 mg Documented by: Acetaminophen (Tylenol -) 1,000 mg PO Q6H PRN PRN Reason: PAIN LEVEL 4 - 6 Last Admin: 09/04/19 09:49 Dose: 1,000 mg Documented by: Diltiazem HCl (Cardizem Cd -) 120 mg PO HS [facility] Last Admin: 09/03/19 21:21 Dose: 120 mg Documented by: Gentamicin Sulfate (Garamycin 0.1% Ointment -) 1 applic TP BID [facility] Last Admin: 09/04/19 09:50 Dose: Not Given Documented by: Vancomycin HCl (Vancomycin (Pre-Docked)) 1,000 mg in 250 mls @ 166.667 mls/hr IVPB Q12H [facility]; Protocol Last Admin: 08/31/19 15:05 Dose: 166.667 mls/hr Documented by: Piperacillin Sod/Tazobactam (Sod 3.375 gm/ Dextrose) 50 mls @ 100 mls/hr IVPB Q8H-IV [facility]; Protocol Last Admin: 09/04/19 09:49 Dose: 100 mls/hr Documented by: Lidocaine (Lidoderm Patch -) 1 patch TP DAILY [facility] Last Admin: 09/04/19 09:50 Dose: 1 patch Documented by: Melatonin (Melatonin) 5 mg PO [facility] Last Admin: 09/03/19 21:21 Dose: 5 mg Documented by: Miscellaneous (Lidoderm Patch Removal) 1 each [facility] DAILY@2200 [facility] Last Admin: 09/03/19 21:22 Dose: 1 each Documented by: Ondansetron HCl (Zofran Injection) 4 mg IVPUSH Q6H PRN PRN Reason: NAUSEA AND/OR VOMITING Pantoprazole Sodium (Protonix -) 40 mg PO DAILY [facility] Last Admin: 09/04/19 09:49 Dose: 40 mg Documented by: Pregabalin (Lyrica -) 100 mg PO BID [facility] Last Admin: 09/04/19 09:49 Dose: 100 mg Documented by: Rivaroxaban (Xarelto) 20 mg PO 1800 [facility] Last Admin: 09/01/19 18:13 Dose: 20 mg Documented by: [place] (Senna -) 2 tab PO BID [facility] Last Admin: 09/04/19 09:49 Dose: 2 tab Documented by: - Objective Vital Signs: Vital Signs Temperature 97.9 F 09/04/19 06:00 Pulse Rate 99 H 09/04/19 06:00 Respiratory Rate 18 09/04/19 06:00 Blood Pressure 150/95 09/04/19 06:00 O2 Sat by Pulse Oximetry (%) 99 09/03/19 21:00 Constitutional: Yes: No Distress, Calm Cardiovascular: Yes: S1, S2 Respiratory: Yes: Regular, CTA Bilaterally Gastrointestinal: Yes: Normal Bowel Sounds, Soft Musculoskeletal: Yes: WNL Extremities: Yes: Other Wound/Incision: Yes: Dressing Dry and Intact Neurological: Yes: Alert, Oriented Psychiatric: Yes: Alert, Oriented Labs: CBC, BMP 09/02/19 07:20 09/02/19 07:20 Assessment/Plan Problem List - Problems (1) Cellulitis Code(s): L03.90 - CELLULITIS, UNSPECIFIED Qualifiers: Site of cellulitis: extremity Site of cellulitis of extremity: lower ex tremity Laterality: left Qualified Code(s): L03.116 - Cellulitis of left lower limb (2) Afib Code(s): I48.91 - UNSPECIFIED ATRIAL FIBRILLATION (3) HTN (hypertension) Code(s): I10 - ESSENTIAL (PRIMARY) HYPERTENSION (4) GERD (gastroesophageal reflux disease) Code(s): K21.9 - GASTRO-ESOPHAGEAL REFLUX DISEASE WITHOUT ESOPHAGITIS (5) PVD (peripheral vascular disease) Code(s): I73.9 - PERIPHERAL VASCULAR DISEASE, UNSPECIFIED (6) Peripheral neuropathy Code(s): G62.9 - POLYNEUROPATHY, UNSPECIFIED (7) HLD (hyperlipidemia) Code(s): E78.5 - HYPERLIPIDEMIA, UNSPECIFIED plan continue abx elevation of the leg wound care await for cx reports
[2019-09-04] MEDS: RIVAROXABAN 20 MG TABLET PO SCH (18:22)
[2019-09-04] MEDS: MELATONIN 5 MG TABLETS PO SCH (22:31)
[2019-09-04] MEDS: LIDOCAINE PATCH REMOVAL MC SCH (22:49)
--- NOTE | 2019-09-04 23:31 | PN ---
Progress Note, Physician History of Present Illness: No new complaints - Current Medication List Current Medications: Active Medications Acetaminophen (Tylenol -) 650 mg PO Q6H PRN PRN Reason: FEVER Last Admin: 08/31/19 20:32 Dose: 650 mg Documented by: Acetaminophen (Tylenol -) 1,000 mg PO Q6H PRN PRN Reason: PAIN LEVEL 4 - 6 Last Admin: 09/04/19 22:46 Dose: 1,000 mg Documented by: Diltiazem HCl (Cardizem Cd -) 120 mg PO [facility] Last Admin: 09/04/19 22:31 Dose: 120 mg Documented by: Gentamicin Sulfate (Garamycin 0.1% Ointment -) 1 applic TP BID COUNTS INCLUDE 234 BEDS AT THE [facility] Last Admin: 09/04/19 22:32 Dose: 1 applic Documented by: Vancomycin HCl (Vancomycin (Pre-Docked)) 1,000 mg in 250 mls @ 166.667 mls/hr IVPB Q12H COUNTS INCLUDE 234 BEDS AT THE [facility]; Protocol Last Admin: 08/31/19 15:05 Dose: 166.667 mls/hr Documented by: Piperacillin Sod/Tazobactam (Sod 3.375 gm/ Dextrose) 50 mls @ 100 mls/hr IVPB Q8H-IV [facility]; Protocol Last Admin: 09/04/19 18:22 Dose: 100 mls/hr Documented by: Lidocaine (Lidoderm Patch -) 1 patch TP DAILY COUNTS INCLUDE 234 BEDS AT THE [facility] Last Admin: 09/04/19 09:50 Dose: 1 patch Documented by: Melatonin (Melatonin) 5 mg PO [facility] Last Admin: 09/04/19 22:31 Dose: 5 mg Documented by: Miscellaneous (Lidoderm Patch Removal) 1 each [facility] DAILY@2200 COUNTS INCLUDE 234 BEDS AT THE [facility] Last Admin: 09/04/19 22:49 Dose: 1 each Documented by: Ondansetron HCl (Zofran Injection) 4 mg IVPUSH Q6H PRN PRN Reason: NAUSEA AND/OR VOMITING Pantoprazole Sodium (Protonix -) 40 mg PO DAILY COUNTS INCLUDE 234 BEDS AT THE [facility] Last Admin: 09/04/19 09:49 Dose: 40 mg Documented by: Pregabalin (Lyrica -) 100 mg PO BID COUNTS INCLUDE 234 BEDS AT THE [facility] Last Admin: 09/04/19 22:31 Dose: 100 mg Documented by: Rivaroxaban (Xarelto) 20 mg PO 1800 COUNTS INCLUDE 234 BEDS AT THE [facility] Last Admin: 09/04/19 18:22 Dose: 20 mg Documented by: [place] (Senna -) 2 tab PO BID [facility] Last Admin: 09/04/19 22:31 Dose: 2 tab Documented by: - Objective Vital Signs: Vital Signs Temperature 97.5 F L 09/04/19 18:00 Pulse Rate 91 H 09/04/19 18:00 Respiratory Rate 18 09/04/19 18:00 Blood Pressure 127/73 09/04/19 18:00 O2 Sat by Pulse Oximetry (%) 99 09/04/19 09:00 Constitutional: Yes: Well Nourished Neck: Yes: WNL, Supple Cardiovascular: Yes: Pulse Irregular Respiratory: Yes: WNL, Regular, CTA Bilaterally Gastrointestinal: Yes: WNL, Normal Bowel Sounds, Soft, Abdomen, Obese Extremities: Yes: Other (LLE/ dressing and erythema) Labs: CBC, BMP 09/02/19 07:20 09/02/19 07:20 Problem List - Problems (1) Cellulitis Assessment/Plan: Cont IV Vanco/zosyn Cultures remain negative CT scan LLE was negative for abscess S/P Debridement LLE wound Cont wound care as per surgery Code(s): L03.90 - CELLULITIS, UNSPECIFIED Qualifiers: Site of cellulitis: extremity Site of cellulitis of extremity: lower extremity Laterality: left Qualified Code(s): L03.116 - Cellulitis of left lower limb (2) Afib Assessment/Plan: Cont xarelto Heart rate controlled Code(s): I48.91 - UNSPECIFIED ATRIAL FIBRILLATION (3) HTN (hypertension) Assessment/Plan: Cont cardizem BP stable Code(s): I10 - ESSENTIAL (PRIMARY) HYPERTENSION (4) GERD (gastroesophageal reflux disease) Code(s): K21.9 - GASTRO-ESOPHAGEAL REFLUX DISEASE WITHOUT ESOPHAGITIS (5) PVD (peripheral vascular disease) Code(s): I73.9 - PERIPHERAL VASCULAR DISEASE, UNSPECIFIED (6) Peripheral neuropathy Assessment/Plan: Cont lyrica Code(s): G62.9 - POLYNEUROPATHY, UNSPECIFIED (7) HLD (hyperlipidemia) Code(s): E78.5 - HYPERLIPIDEMIA, UNSPECIFIED
[2019-09-05] MEDS ORDERED: PIPERACILLIN/TAZOBACTAM 3.375 GM VIAL IVPB ONE ×2 (01:40→10:10)
[2019-09-05] MEDS: PIPERACILLIN/TAZOB 3.375 GM 3.375 GM in DEXTROSE 5%-WATER - 50 ML IVPB SCH ×2 (01:52→10:27)
[2019-09-05 08:06] LABS: BASO % 1.1 % (0-2.0); EOS % 3.7 % (0-4.5); HEMATOCRIT 38.6 % (32.4-45.2); HEMOGLOBIN 13.1 GM/dL (10.7-15.3); MCH 28.1 pg (25.7-33.7); MCHC 33.9 g/dl (32.0-36.0); MONO % 12.1 % (3.8-10.2); NEUT % 64.1 % (42.8-82.8); PLATELET COUNT 341 K/MM3 (134-434); RBC 4.65 M/mm3 (3.60-5.2); RDW 14.1 % (11.6-15.6); WHITE BLOOD COUNT 4.4 K/mm3 (4.0-10.0)
[2019-09-05 08:29] LABS: BILIRUBIN,TOTAL 0.3 mg/dL (0.2-1); BLOOD UREA NITROGEN 10.3 mg/dL (7-18); CALCIUM 8.7 mg/dL (8.5-10.1); CREATININE 0.5 mg/dL (0.55-1.3); POTASSIUM 4.2 mmol/L (3.5-5.1); TOT PROT 6.6 g/dl (6.4-8.2)
[2019-09-05] MEDS ORDERED: DEXTROSE 5%-WATER - 50 ML IVPB ONE (10:11)
[2019-09-05] MEDS: PANTOPRAZOLE 40 MG TABLET PO SCH (10:26)
[2019-09-05] MEDS: SENNOSIDES 8.6MG TABLET (FP) PO SCH ×2 (10:26→21:44)
[2019-09-05] MEDS: PREGABALIN 100 MG CAPSULE PO SCH ×2 (10:26→21:45)
[2019-09-05] MEDS: ACETAMINOPHEN 500 MG TABLET (FP) PO PRN ×2 (10:26→21:44)
[2019-09-05] MEDS: GENTAMICIN SO4 0.1% TOPICAL OINTMENT 15 GM/TUBE TUBE TP SCH ×2 (10:28→21:52)
[2019-09-05] MEDS: LIDOCAINE 5% TOPICAL PATCH TP SCH (10:28)
--- NOTE | 2019-09-05 14:46 | PN ---
Progress Note, Physician - Current Medication List Current Medications: Active Medications Acetaminophen (Tylenol -) 650 mg PO Q6H PRN PRN Reason: FEVER Last Admin: 08/31/19 20:32 Dose: 650 mg Documented by: Acetaminophen (Tylenol -) 1,000 mg PO Q6H PRN PRN Reason: PAIN LEVEL 4 - 6 Last Admin: 09/05/19 10:26 Dose: 1,000 mg Documented by: Diltiazem HCl (Cardizem Cd -) 120 mg PO HS [facility] Last Admin: 09/04/19 22:31 Dose: 120 mg Documented by: Gentamicin Sulfate (Garamycin 0.1% Ointment -) 1 applic TP BID [facility] Last Admin: 09/05/19 10:28 Dose: Not Given Documented by: Vancomycin HCl (Vancomycin (Pre-Docked)) 1,000 mg in 250 mls @ 166.667 mls/hr IVPB Q12H [facility]; Protocol Last Admin: 08/31/19 15:05 Dose: 166.667 mls/hr Documented by: Piperacillin Sod/Tazobactam (Sod 3.375 gm/ Dextrose) 50 mls @ 100 mls/hr IVPB Q8H-IV [facility]; Protocol Last Admin: 09/05/19 10:27 Dose: 100 mls/hr Documented by: Lidocaine (Lidoderm Patch -) 1 patch TP DAILY [facility] Last Admin: 09/05/19 10:28 Dose: 1 patch Documented by: Melatonin (Melatonin) 5 mg PO HS [facility] Last Admin: 09/04/19 22:31 Dose: 5 mg Documented by: Miscellaneous (Lidoderm Patch Removal) 1 each [facility] DAILY@2200 [facility] Last Admin: 09/04/19 22:49 Dose: 1 each Documented by: Ondansetron HCl (Zofran Injection) 4 mg IVPUSH Q6H PRN PRN Reason: NAUSEA AND/OR VOMITING Pantoprazole Sodium (Protonix -) 40 mg PO DAILY [facility] Last Admin: 09/05/19 10:26 Dose: 40 mg Documented by: Pregabalin (Lyrica -) 100 mg PO BID [facility] Last Admin: 09/05/19 10:26 Dose: 100 mg Documented by: Rivaroxaban (Xarelto) 20 mg PO 1800 [facility] Last Admin: 09/04/19 18:22 Dose: 20 mg Documented by: Senna (Senna -) 2 tab PO BID [facility] Last Admin: 09/05/19 10:26 Dose: 2 tab Documented by: - Objective Vital Signs: Vital Signs Temperature 97.6 F 09/05/19 06:00 Pulse Rate 90 09/05/19 06:00 Respiratory Rate 18 09/05/19 06:00 Blood Pressure 146/89 09/05/19 06:00 O2 Sat by Pulse Oximetry (%) 100 09/04/19 21:00 Labs: CBC, BMP 09/05/19 07:10 09/05/19 07:10
[2019-09-05] MEDS: AMOX TR/POT CLAV 500MG/125MG TABLETS (FP) PO SCH ×3 (17:02→23:04)
[2019-09-05] MEDS: RIVAROXABAN 20 MG TABLET PO SCH (18:01)
[2019-09-05] MEDS: MELATONIN 5 MG TABLETS PO SCH (21:44)
[2019-09-05] MEDS: LIDOCAINE PATCH REMOVAL MC SCH (21:53)
--- NOTE | 2019-09-05 23:44 | PN ---
Progress Note, Physician History of Present Illness: No new complaints - Current Medication List Current Medications: Active Medications Acetaminophen (Tylenol -) 650 mg PO Q6H PRN PRN Reason: FEVER Last Admin: 08/31/19 20:32 Dose: 650 mg Documented by: Acetaminophen (Tylenol -) 1,000 mg PO Q6H PRN PRN Reason: PAIN LEVEL 4 - 6 Last Admin: 09/05/19 21:44 Dose: 1,000 mg Documented by: Amoxicillin/Clavulanate Potassium (Augmentin - 500mg Tablet) 1 tab PO BID@0800,1730 [facility] Last Admin: 09/05/19 23:04 Dose: Not Given Documented by: Diltiazem HCl (Cardizem Cd -) 120 mg PO [facility] Last Admin: 09/05/19 21:44 Dose: 120 mg Documented by: Gentamicin Sulfate (Garamycin 0.1% Ointment -) 1 applic TP BID [facility] Last Admin: 09/05/19 21:52 Dose: Not Given Documented by: Lidocaine (Lidoderm Patch -) 1 patch TP DAILY [facility] Last Admin: 09/05/19 10:28 Dose: 1 patch Documented by: Melatonin (Melatonin) 5 mg PO [facility] Last Admin: 09/05/19 21:44 Dose: 5 mg Documented by: Miscellaneous (Lidoderm Patch Removal) 1 each [facility] DAILY@2200 [facility] Last Admin: 09/05/19 21:53 Dose: 1 each Documented by: Ondansetron HCl (Zofran Injection) 4 mg IVPUSH Q6H PRN PRN Reason: NAUSEA AND/OR VOMITING Pantoprazole Sodium (Protonix -) 40 mg PO DAILY [facility] Last Admin: 09/05/19 10:26 Dose: 40 mg Documented by: Pregabalin (Lyrica -) 100 mg PO BID [facility] Last Admin: 09/05/19 21:45 Dose: 100 mg Documented by: Rivaroxaban (Xarelto) 20 mg PO 1800 [facility] Last Admin: 09/05/19 18:01 Dose: 20 mg Documented by: Senna (Senna -) 2 tab PO BID [facility] Last Admin: 09/05/19 21:44 Dose: 2 tab Documented by: - Objective Vital Signs: Vital Signs Temperature 97.6 F 09/05/19 18:00 Pulse Rate 107 H 09/05/19 18:00 Respiratory Rate 18 09/05/19 18:00 Blood Pressure 127/69 09/05/19 18:00 O2 Sat by Pulse Oximetry (%) 100 09/05/19 09:00 Cardiovascular: Yes: Pulse Irregular Respiratory: Yes: WNL, Regular, CTA Bilaterally Gastrointestinal: Yes: WNL, Normal Bowel Sounds, Soft, Abdomen, Obese Extremities: Yes: Other (LLE w/ dry dressing) Labs: CBC, BMP 09/05/19 07:10 09/05/19 07:10 Problem List - Problems (1) Cellulitis Assessment/Plan: Pt now on augmentin Cultures remain negative CT scan LLE was negative for abscess S/P Debridement LLE wound Cont wound care as per surgery Code(s): L03.90 - CELLULITIS, UNSPECIFIED Qualifiers: Site of cellulitis: extremity Site of cellulitis of extremity: lower extremity Laterality: left Qualified Code(s): L03.116 - Cellulitis of left lower limb (2) Afib Assessment/Plan: Cont xarelto Heart rate controlled Code(s): I48.91 - UNSPECIFIED ATRIAL FIBRILLATION (3) HTN (hypertension) Assessment/Plan: Cont cardizem BP stable Code(s): I10 - ESSENTIAL (PRIMARY) HYPERTENSION (4) GERD (gastroesophageal reflux disease) Code(s): K21.9 - GASTRO-ESOPHAGEAL REFLUX DISEASE WITHOUT ESOPHAGITIS (5) PVD (peripheral vascular disease) Code(s): I73.9 - PERIPHERAL VASCULAR DISEASE, UNSPECIFIED (6) Peripheral neuropathy Assessment/Plan: Cont lyrica Code(s): G62.9 - POLYNEUROPATHY, UNSPECIFIED (7) HLD (hyperlipidemia) Code(s): E78.5 - HYPERLIPIDEMIA, UNSPECIFIED
[2019-09-06] MEDS: ACETAMINOPHEN 500 MG TABLET (FP) PO PRN ×2 (06:40→15:42)
[2019-09-06] MEDS: PANTOPRAZOLE 40 MG TABLET PO SCH (09:22)
[2019-09-06] MEDS: LIDOCAINE 5% TOPICAL PATCH TP SCH (09:22)
[2019-09-06] MEDS: AMOX TR/POT CLAV 500MG/125MG TABLETS (FP) PO SCH (09:22)
[2019-09-06] MEDS: PREGABALIN 100 MG CAPSULE PO SCH ×2 (09:22→23:10)
[2019-09-06] MEDS: SENNOSIDES 8.6MG TABLET (FP) PO SCH ×2 (09:22→23:10)
[2019-09-06] MEDS: GENTAMICIN SO4 0.1% TOPICAL OINTMENT 15 GM/TUBE TUBE TP SCH (09:39)
--- NOTE | 2019-09-06 13:07 | PN ---
Progress Note, Physician History of Present Illness: stable no new issues - Current Medication List Current Medications: Active Medications Acetaminophen (Tylenol -) 650 mg PO Q6H PRN PRN Reason: FEVER Last Admin: 08/31/19 20:32 Dose: 650 mg Documented by: Acetaminophen (Tylenol -) 1,000 mg PO Q6H PRN PRN Reason: PAIN LEVEL 4 - 6 Last Admin: 09/06/19 06:40 Dose: 1,000 mg Documented by: Diltiazem HCl (Cardizem Cd -) 120 mg PO [facility] Last Admin: 09/05/19 21:44 Dose: 120 mg Documented by: Doxycycline Hyclate (Vibramycin -) 100 mg PO BID@1000,1800 [facility] Gentamicin Sulfate (Garamycin 0.1% Ointment -) 1 applic TP BID [facility] Last Admin: 09/06/19 09:39 Dose: Not Given Documented by: Lidocaine (Lidoderm Patch -) 1 patch TP DAILY [facility] Last Admin: 09/06/19 09:22 Dose: 1 patch Documented by: Melatonin (Melatonin) 5 mg PO [facility] Last Admin: 09/05/19 21:44 Dose: 5 mg Documented by: Miscellaneous (Lidoderm Patch Removal) 1 each MC DAILY@2200 [facility] Last Admin: 09/05/19 21:53 Dose: 1 each Documented by: Ondansetron HCl (Zofran Injection) 4 mg IVPUSH Q6H PRN PRN Reason: NAUSEA AND/OR VOMITING Pantoprazole Sodium (Protonix -) 40 mg PO DAILY [facility] Last Admin: 09/06/19 09:22 Dose: 40 mg Documented by: Pregabalin (Lyrica -) 100 mg PO BID [facility] Last Admin: 09/06/19 09:22 Dose: 100 mg Documented by: Rivaroxaban (Xarelto) 20 mg PO 1800 [facility] Last Admin: 09/05/19 18:01 Dose: 20 mg Documented by: Senna (Senna -) 2 tab PO BID [facility] Last Admin: 09/06/19 09:22 Dose: 2 tab Documented by: - Objective Vital Signs: Vital Signs Temperature 98.2 F 09/06/19 10:00 Pulse Rate 97 H 09/06/19 10:00 Respiratory Rate 20 09/06/19 10:00 Blood Pressure 141/92 09/06/19 10:00 O2 Sat by Pulse Oximetry (%) 98 09/06/19 09:00 Constitutional: Yes: No Distress, Calm Cardiovascular: Yes: S1, S2 Respiratory: Yes: Regular, CTA Bilaterally Gastrointestinal: Yes: Normal Bowel Sounds, Soft Musculoskeletal: Yes: Other Extremities: Yes: Other Wound/Incision: Yes: Dressing Dry and Intact Neurological: Yes: Alert, Oriented Psychiatric: Yes: Alert, Oriented Labs: CBC, BMP 09/05/19 07:10 09/05/19 07:10 Assessment/Plan Problem List - Problems (1) Cellulitis Code(s): L03.90 - CELLULITIS, UNSPECIFIED Qualifiers: Site of cellulitis: extremity Site of cellulitis of extremity: lower extremity Laterality: left Qualified Code(s): L03.116 - Cellulitis of left lower limb (2) Afib Code(s): I48.91 - UNSPECIFIED ATRIAL FIBRILLATION (3) HTN (hypertension) Code(s): I10 - ESSENTIAL (PRIMARY) HYPERTENSION (4) GERD (gastroesophageal reflux disease) Code(s): K21.9 - GASTRO-ESOPHAGEAL REFLUX DISEASE WITHOUT ESOPHAGITIS (5) PVD (peripheral vascular disease) Code(s): I73.9 - PERIPHERAL VASCULAR DISEASE, UNSPECIFIED (6) Peripheral neuropathy Code(s): G62.9 - POLYNEUROPATHY, UNSPECIFIED (7) HLD (hyperlipidemia) Code(s): E78.5 - HYPERLIPIDEMIA, UNSPECIFIED plan will change abx to doxy await for sensitivities wound care rest as per the team
[2019-09-06] MEDS: RIVAROXABAN 20 MG TABLET PO SCH (17:33)
[2019-09-06] MEDS: DOXYCYCLINE HYCLATE 100 MG CAPSULE PO SCH (17:33)
--- NOTE | 2019-09-06 19:35 | PN ---
Progress Note, Physician History of Present Illness: DOING WELL - Current Medication List Current Medications: Active Medications Acetaminophen (Tylenol -) 650 mg PO Q6H PRN PRN Reason: FEVER Last Admin: 08/31/19 20:32 Dose: 650 mg Documented by: Acetaminophen (Tylenol -) 1,000 mg PO Q6H PRN PRN Reason: PAIN LEVEL 4 - 6 Last Admin: 09/06/19 15:42 Dose: 1,000 mg Documented by: Diltiazem HCl (Cardizem Cd -) 120 mg PO [facility] Last Admin: 09/05/19 21:44 Dose: 120 mg Documented by: Doxycycline Hyclate (Vibramycin -) 100 mg PO BID@1000,1800 [facility] Last Admin: 09/06/19 17:33 Dose: 100 mg Documented by: Gentamicin Sulfate (Garamycin 0.1% Ointment -) 1 applic TP BID [facility] Last Admin: 09/06/19 09:39 Dose: Not Given Documented by: Lidocaine (Lidoderm Patch -) 1 patch TP DAILY [facility] Last Admin: 09/06/19 09:22 Dose: 1 patch Documented by: Melatonin (Melatonin) 5 mg PO [facility] Last Admin: 09/05/19 21:44 Dose: 5 mg Documented by: Miscellaneous (Lidoderm Patch Removal) 1 each MC DAILY@2200 [facility] Last Admin: 09/05/19 21:53 Dose: 1 each Documented by: Ondansetron HCl (Zofran Injection) 4 mg IVPUSH Q6H PRN PRN Reason: NAUSEA AND/OR VOMITING Pantoprazole Sodium (Protonix -) 40 mg PO DAILY [facility] Last Admin: 09/06/19 09:22 Dose: 40 mg Documented by: Pregabalin (Lyrica -) 100 mg PO BID [facility] Last Admin: 09/06/19 09:22 Dose: 100 mg Documented by: Rivaroxaban (Xarelto) 20 mg PO 1800 [facility] Last Admin: 09/06/19 17:33 Dose: 20 mg Documented by: Senna (Senna -) 2 tab PO BID [facility] Last Admin: 09/06/19 09:22 Dose: 2 tab Documented by: - Objective Vital Signs: Vital Signs Temperature 97.7 F 09/06/19 17:30 Pulse Rate 97 H 09/06/19 17:30 Respiratory Rate 20 09/06/19 17:30 Blood Pressure 143/94 09/06/19 17:30 O2 Sat by Pulse Oximetry (%) 98 09/06/19 09:00 Constitutional: Yes: No Distress HENT: Yes: Atraumatic Neck: Yes: Supple Cardiovascular: Yes: Regular Rate and Rhythm Respiratory: Yes: CTA Bilaterally Gastrointestinal: Yes: Normal Bowel Sounds Extremities: Yes: Other (llex wound/cellulitis ..dressing in place) Neurological: Yes: Alert, Oriented Labs: CBC, BMP 09/05/19 07:10 09/05/19 07:10 Problem List - Problems (1) Cellulitis Assessment/Plan: po abx now wound care dressing change s/p I and d Code(s): L03.90 - CELLULITIS, UNSPECIFIED Qualifiers: Site of cellulitis: extremity Site of cellulitis of extremity: lower extremity Laterality: left Qualified Code(s): L03.116 - Cellulitis of left lower limb (2) HLD (hyperlipidemia) Code(s): E78.5 - HYPERLIPIDEMIA, UNSPECIFIED (3) HTN (hypertension) Assessment/Plan: on meds Code(s): I10 - ESSENTIAL (PRIMARY) HYPERTENSION (4) PVD (peripheral vascular disease) Code(s): I73.9 - PERIPHERAL VASCULAR DISEASE, UNSPECIFIED (5) Afib Assessment/Plan: on meds Code(s): I48.91 - UNSPECIFIED ATRIAL FIBRILLATION (6) GERD (gastroesophageal reflux disease) Code(s): K21.9 - GASTRO-ESOPHAGEAL REFLUX DISEASE WITHOUT ESOPHAGITIS Assessment/Plan covering for Dr anderson
--- NOTE | 2019-09-06 19:59 | PN ---
Progress Note (short form) - Note Progress Note: Vascular Surgery: Pt states that the dressing was changed earlier by the nursing staff. Vital Signs Period Temp Pulse Resp BP Sys/Farris Pulse Ox Last 24 Hr 97.6 F-98.2 F 92-105 18-20 123-143/71-94 98-98 GEN: A&0x3, NAD Left leg: mild swelling to foot , ankle leg. Outer dressing removed, packiing in place. Mild eryhtema and swelling noted. tenderness to palpation proximal aspect of the wound. Microbiology 09/03/19 10:40 Leg - Left Lower Gram Stain - Final 09/03/19 10:40 Leg - Left Lower Wound Culture - Preliminary Presumptive Mrsa (Pbp2a Pos) CBC, BMP 09/05/19 07:10 09/05/19 07:10 A/P: 79 yo female s/p I&D of left leg wound Microbioology results as above Continue local wound care, elevate Left leg at all times when not ambulating VNS ordered ANtibiotics changed today by ID, awaiting sensitivities D/w Dr. Mobley Problem List - Problems (1) Cellulitis Code(s): L03.90 - CELLULITIS, UNSPECIFIED Qualifiers: Site of cellulitis: extremity Site of cellulitis of extremity: lower extremity Laterality: left Qualified Code(s): L03.116 - Cellulitis of left lower limb
[2019-09-06] MEDS ORDERED: PT OWN MED DRAWER 7, Y5N ONE (21:43)
[2019-09-06] MEDS: ACETAMINOPHEN 325 MG TABLET (FP) PO PRN (23:08)
[2019-09-06] MEDS: MELATONIN 5 MG TABLETS PO SCH (23:10)
[2019-09-06] MEDS: LIDOCAINE PATCH REMOVAL MC SCH (23:14)
[2019-09-07] MEDS: GENTAMICIN SO4 0.1% TOPICAL OINTMENT 15 GM/TUBE TUBE TP SCH ×3 (04:50→21:36)
--- NOTE | 2019-09-07 09:25 | PN ---
Progress Note (short form) - Note Progress Note: FUV left foot. Pain resolved. Complains of leg pain being followed by Vascular for that. +improved interdigital maceration, -cellulitis, +dressing intact left leg Wound left leg Improved Tinea Pedis left foot May be dc from Podiatry standpoint. Follow up in [facility] Rest as per team. Will follow till dc.
[2019-09-07] MEDS: SENNOSIDES 8.6MG TABLET (FP) PO SCH ×2 (09:30→21:39)
[2019-09-07] MEDS: LIDOCAINE 5% TOPICAL PATCH TP SCH (09:31)
[2019-09-07] MEDS: PANTOPRAZOLE 40 MG TABLET PO SCH (09:31)
[2019-09-07] MEDS: DOXYCYCLINE HYCLATE 100 MG CAPSULE PO SCH ×2 (09:31→17:57)
[2019-09-07] MEDS: PREGABALIN 100 MG CAPSULE PO SCH ×2 (09:35→21:39)
[2019-09-07] MEDS: ACETAMINOPHEN 325 MG TABLET (FP) PO PRN ×3 (09:35→21:40)
--- NOTE | 2019-09-07 11:13 | PN ---
Progress Note, Physician History of Present Illness: stable no new issues - Current Medication List Current Medications: Active Medications Acetaminophen (Tylenol -) 650 mg PO Q6H PRN PRN Reason: FEVER Last Admin: 09/07/19 09:35 Dose: 650 mg Documented by: Acetaminophen (Tylenol -) 1,000 mg PO Q6H PRN PRN Reason: PAIN LEVEL 4 - 6 Last Admin: 09/06/19 15:42 Dose: 1,000 mg Documented by: Diltiazem HCl (Cardizem Cd -) 120 mg PO [facility] Last Admin: 09/06/19 23:10 Dose: 120 mg Documented by: Doxycycline Hyclate (Vibramycin -) 100 mg PO BID@1000,1800 [facility] Last Admin: 09/07/19 09:31 Dose: 100 mg Documented by: Gentamicin Sulfate (Garamycin 0.1% Ointment -) 1 applic TP BID [facility] Last Admin: 09/07/19 09:30 Dose: Not Given Documented by: Lidocaine (Lidoderm Patch -) 1 patch TP DAILY [facility] Last Admin: 09/07/19 09:31 Dose: 1 patch Documented by: Melatonin (Melatonin) 5 mg PO HS [facility] Last Admin: 09/06/19 23:10 Dose: 5 mg Documented by: Miscellaneous (Lidoderm Patch Removal) 1 each [facility] DAILY@2200 [facility] Last Admin: 09/06/19 23:14 Dose: Not Given Documented by: Ondansetron HCl (Zofran Injection) 4 mg IVPUSH Q6H PRN PRN Reason: NAUSEA AND/OR VOMITING Pantoprazole Sodium (Protonix -) 40 mg PO DAILY [facility] Last Admin: 09/07/19 09:31 Dose: 40 mg Documented by: Pregabalin (Lyrica -) 100 mg PO BID [facility] Last Admin: 09/07/19 09:35 Dose: 100 mg Documented by: Rivaroxaban (Xarelto) 20 mg PO 1800 [facility] Last Admin: 09/06/19 17:33 Dose: 20 mg Documented by: Senna (Senna -) 2 tab PO BID [facility] Last Admin: 09/07/19 09:30 Dose: 2 tab Documented by: - Objective Vital Signs: Vital Signs Temperature 98.3 F 09/07/19 09:00 Pulse Rate 92 H 09/07/19 09:00 Respiratory Rate 20 09/07/19 09:00 Blood Pressure 137/87 09/07/19 09:00 O2 Sat by Pulse Oximetry (%) 100 09/07/19 09:00 Constitutional: Yes: No Distress, Calm Cardiovascular: Yes: S1, S2 Respiratory: Yes: Regular, CTA Bilaterally Gastrointestinal: Yes: Normal Bowel Sounds, Soft Musculoskeletal: Yes: WNL Extremities: Yes: Other Wound/Incision: Yes: Dressing Dry and Intact Neurological: Yes: Alert, Oriented Psychiatric: Yes: Alert, Oriented Labs: CBC, BMP 09/05/19 07:10 09/05/19 07:10 Assessment/Plan Problem List - Problems (1) Cellulitis Code(s): L03.90 - CELLULITIS, UNSPECIFIED Qualifiers: Site of cellulitis: extremity Site of cellulitis of extremity: lower extremity Laterality: left Qualified Code(s): L03.116 - Cellulitis of left lower limb (2) Afib Code(s): I48.91 - UNSPECIFIED ATRIAL FIBRILLATION (3) HTN (hypertension) Code(s): I10 - ESSENTIAL (PRIMARY) HYPERTENSION (4) GERD (gastroesophageal reflux disease) Code(s): K21.9 - GASTRO-ESOPHAGEAL REFLUX DISEASE WITHOUT ESOPHAGITIS (5) PVD (peripheral vascular disease) Code(s): I73.9 - PERIPHERAL VASCULAR DISEASE, UNSPECIFIED (6) Peripheral neuropathy Code(s): G62.9 - POLYNEUROPATHY, UNSPECIFIED (7) HLD (hyperlipidemia) Code(s): E78.5 - HYPERLIPIDEMIA, UNSPECIFIED plan patient can be discharged on doxy for another 14 days wound care rest as per the team
[2019-09-07 15:59] VITALS: BMI 27.3
[2019-09-07] MEDS: RIVAROXABAN 20 MG TABLET PO SCH (17:57)
--- NOTE | 2019-09-07 20:23 | PN ---
Progress Note, Physician History of Present Illness: DOING WELL - Current Medication List Current Medications: Active Medications Acetaminophen (Tylenol -) 650 mg PO Q6H PRN PRN Reason: FEVER Last Admin: 09/07/19 14:58 Dose: 650 mg Documented by: Acetaminophen (Tylenol -) 1,000 mg PO Q6H PRN PRN Reason: PAIN LEVEL 4 - 6 Last Admin: 09/06/19 15:42 Dose: 1,000 mg Documented by: Diltiazem HCl (Cardizem Cd -) 120 mg PO [facility] Last Admin: 09/06/19 23:10 Dose: 120 mg Documented by: Doxycycline Hyclate (Vibramycin -) 100 mg PO BID@1000,1800 [facility] Last Admin: 09/07/19 17:57 Dose: 100 mg Documented by: Gentamicin Sulfate (Garamycin 0.1% Ointment -) 1 applic TP BID [facility] Last Admin: 09/07/19 09:30 Dose: Not Given Documented by: Lidocaine (Lidoderm Patch -) 1 patch TP DAILY [facility] Last Admin: 09/07/19 09:31 Dose: 1 patch Documented by: Melatonin (Melatonin) 5 mg PO [facility] Last Admin: 09/06/19 23:10 Dose: 5 mg Documented by: Miscellaneous (Lidoderm Patch Removal) 1 each [facility] DAILY@2200 [facility] Last Admin: 09/06/19 23:14 Dose: Not Given Documented by: Ondansetron HCl (Zofran Injection) 4 mg IVPUSH Q6H PRN PRN Reason: NAUSEA AND/OR VOMITING Pantoprazole Sodium (Protonix -) 40 mg PO DAILY [facility] Last Admin: 09/07/19 09:31 Dose: 40 mg Documented by: Pregabalin (Lyrica -) 100 mg PO BID [facility] Last Admin: 09/07/19 09:35 Dose: 100 mg Documented by: Rivaroxaban (Xarelto) 20 mg PO 1800 [facility] Last Admin: 09/07/19 17:57 Dose: 20 mg Documented by: Senna (Senna -) 2 tab PO BID [facility] Last Admin: 09/07/19 09:30 Dose: 2 tab Documented by: - Objective Vital Signs: Vital Signs Temperature 97.7 F 09/07/19 18:18 Pulse Rate 84 09/07/19 18:18 Respiratory Rate 20 09/07/19 18:18 Blood Pressure 104/68 09/07/19 18:18 O2 Sat by Pulse Oximetry (%) 100 09/07/19 09:00 Constitutional: Yes: No Distress HENT: Yes: Atraumatic Neck: Yes: Supple Cardiovascular: Yes: Regular Rate and Rhythm Respiratory: Yes: CTA Bilaterally Gastrointestinal: Yes: Normal Bowel Sounds Musculoskeletal: Yes: WNL Extremities: Yes: Other (llex cellulitis) Edema: No Peripheral Pulses WNL: Yes Neurological: Yes: Alert, Oriented Labs: CBC, BMP 09/05/19 07:10 09/05/19 07:10 Problem List - Problems (1) Cellulitis Assessment/Plan: po abx now wound care dressing change s/p I and d Code(s): L03.90 - CELLULITIS, UNSPECIFIED Qualifiers: Site of cellulitis: extremity Site of cellulitis of extremity: lower extre mity Laterality: left Qualified Code(s): L03.116 - Cellulitis of left lower limb (2) HLD (hyperlipidemia) Code(s): E78.5 - HYPERLIPIDEMIA, UNSPECIFIED (3) HTN (hypertension) Assessment/Plan: on meds Code(s): I10 - ESSENTIAL (PRIMARY) HYPERTENSION (4) PVD (peripheral vascular disease) Code(s): I73.9 - PERIPHERAL VASCULAR DISEASE, UNSPECIFIED (5) Afib Assessment/Plan: on meds Code(s): I48.91 - UNSPECIFIED ATRIAL FIBRILLATION (6) GERD (gastroesophageal reflux disease) Code(s): K21.9 - GASTRO-ESOPHAGEAL REFLUX DISEASE WITHOUT ESOPHAGITIS Assessment/Plan covering for Dr monica arizmendi in am d/w dr anderson
--- NOTE | 2019-09-07 21:18 | DS ---
Physical Examination Vital Signs: Vital Signs Temperature 97.6 F 09/07/19 20:26 Pulse Rate 98 H 09/07/19 20:26 Respiratory Rate 18 09/07/19 20:26 Blood Pressure 122/64 09/07/19 20:26 O2 Sat by Pulse Oximetry (%) 98 09/07/19 20:27 Labs: CBC, BMP 09/05/19 07:10 09/05/19 07:10 Discharge Summary Problems reviewed: Yes Reason For Visit: CELLULITIS AND ABSCESS OF LOWER EXTREMITY Current Active Problems Cellulitis (Acute) Condition: Guarded - Instructions Diet, Activity, Other Instructions: VNS for lower extremity wound care. Irrigate wound with normal saline and repack wound with iodoform packing daily. Cover with dry gauze. Apply light bro wrap from ttoe to below the knee. Compression stocking to right lower extremity. plan patient can be discharged on doxy for another 14 days follow up wound care 2-3 days Referrals: Sanjay Becerra MD [Primary Care Provider] - Andre Mobley MD [Staff Physician] - - Home Medications Comprehensive Discharge Medication List: Ambulatory Orders Armodafinil 1 tab PO DAILY 02/23/18 Rivaroxaban [Xarelto -] 1 tab PO DAILY 02/23/18 Diltiazem HCl [Cartia Xt] 1 tab PO HS 05/20/19 Pravastatin Sodium 1 tab PO HS 05/20/19 Sennosides [Senna -] 2 tab PO BID 05/20/19 Telmisartan 1 tab PO HS 05/20/19 Melatonin 5 mg PO HS tab 05/25/19 Omeprazole 20 mg PO ACBK 07/17/19 Pregabalin [Lyrica -] 250 mg PO BID #1 capsule MDD 2 07/21/19 traMADol HCL [Ultram -] 50 mg PO Q8H PRN #30 tablet MDD 3 07/21/19 Doxycycline Hyclate [Vibramycin -] 100 mg PO BID@1000,1800 #28 capsule 09/07/19 [facility]
[2019-09-07] MEDS: LIDOCAINE PATCH REMOVAL MC SCH (21:37)
[2019-09-07] MEDS: MELATONIN 5 MG TABLETS PO SCH (21:41)
[2019-09-08] MEDS: ACETAMINOPHEN 325 MG TABLET (FP) PO PRN (06:27)
[2019-09-08] MEDS ORDERED: PT OWN MED DRAWER 7, Y5N ONE (09:16)
[2019-09-08] MEDS: PANTOPRAZOLE 40 MG TABLET PO SCH (09:23)
[2019-09-08] MEDS: LIDOCAINE 5% TOPICAL PATCH TP SCH (09:23)
[2019-09-08] MEDS: DOXYCYCLINE HYCLATE 100 MG CAPSULE PO SCH (09:23)
[2019-09-08] MEDS: SENNOSIDES 8.6MG TABLET (FP) PO SCH (09:23)
[2019-09-08] MEDS: PREGABALIN 100 MG CAPSULE PO SCH (09:23)
[2019-09-08] MEDS: GENTAMICIN SO4 0.1% TOPICAL OINTMENT 15 GM/TUBE TUBE TP SCH (09:27)
[2019-09-08 14:40] VITALS: BP 140/70; PULSE 90; TEMP 97.8
== END 2019-09-08 10:45 | disposition home health service (06) | DRG 574 ==
LOC: JER 16:39 → JERBED 23:19 → J5S 08-24 14:08 → J8W 09-06 17:29
PROVIDERS: ADMIT Internal Medicine; ATTEND Internal Medicine
PROC: 0YBJ0ZZ Excision of Left Lower Leg, Open Approach (ICD-10-PCS; principal; 2019-09-03)
DX: L03.116 Cellulitis of left lower limb (principal); E87.1 Hypo-osmolality and hyponatremia; I10 Essential (primary) hypertension; E78.5 Hyperlipidemia, unspecified; I48.91 Unspecified atrial fibrillation; G62.9 Polyneuropathy, unspecified; K21.9 Gastro-esophageal reflux disease without esophagitis; A49.02 Methicillin resistant Staphylococcus aureus infection, unspecified site; I73.9 Peripheral vascular disease, unspecified; B35.3 Tinea pedis
CPT/HCPCS: 36415; 73700-TC-RT; 80048; 80053; 83605; 85025; 87040; 87070; 87186; 87205; 93005; 93010; 93971-TC; 97116-GP; 97162-GP; 99285-25; G0480; J0131

== ENCOUNTER 2022-04-13 09:39 | Observation (INO) | payer OTHER, BC ==
[2022-04-13 10:21] VITALS: BMI 31.9
[2022-04-13] MEDS ORDERED: FAMOTIDINE 20 MG/50 ML IVPB 20 MG/50 ML MG IVPB ONE ×2 (10:43→11:05)
[2022-04-13] MEDS ORDERED: MAG HYDROX/AL HYDROX/SIMETH 30 ML UNIT-DOSE CUP PO ONE (10:43)
[2022-04-13] MEDS ORDERED: MAG HYDROX/AL HYDROX/SIMETH 30 ML UNIT-DOSE CUP ONE (11:05)
[2022-04-13 11:45] LABS: BASO % 0.2 % (0-2.0); EOS % 2.3 % (0-4.5); HEMATOCRIT 34.3 % (32.4-45.2); HEMOGLOBIN 10.8 GM/dL (10.7-15.3); LYMPH % 11.2 % (8-40); MCH 24.7 pg (25.7-33.7); MCHC 31.4 g/dl (32.0-36.0); MEAN CELL VOLUME 78.7 fl (80-96); MEAN PLT VOLUME 7.6 fl (7.5-11.1); MONO % 10.7 % (3.8-10.2); NEUT % 75.6 % (42.8-82.8); PLATELET COUNT 321 10^3/uL (134-434); RBC 4.35 M/mm3 (3.60-5.2); RDW 18.5 % (11.6-15.6); WHITE BLOOD COUNT 6.5 K/mm3 (4.0-10.0)
[2022-04-13 11:56] LABS: ACTIVATED PTT 34.3 SECONDS (25.2-36.5); INR 1.15 (0.83-1.09); PROTHROMBIN TIME (PATIENT) 13.3 SEC (9.7-13.0)
[2022-04-13 12:07] LABS: CALCIUM 8.3 mg/dL (8.5-10.1)
[2022-04-13 12:08] LABS: BLOOD UREA NITROGEN 17.4 mg/dL (7-18); MAGNESIUM 2.4 mg/dL (1.8-2.4)
[2022-04-13 12:11] LABS: CREATININE 0.5 mg/dL (0.55-1.3)
[2022-04-13 12:12] LABS: BILIRUBIN,TOTAL 0.3 mg/dL (0.2-1); TOT PROT 6.7 g/dl (6.4-8.2)
[2022-04-13 12:16] LABS: N-TERMINAL BNP 459.6 pg/ml (5-450)
[2022-04-13] MEDS ORDERED: traMADol HCL 50 MG TABLET PO PRN (12:45)
[2022-04-13] MEDS ORDERED: FAMOTIDINE 20 MG TABLET ONE (15:31)
[2022-04-13] MEDS: FAMOTIDINE 20 MG TABLET PO SCH (15:33)
[2022-04-13 20:10] LABS: PH,URINE 6.5 (5.0-8.0); URINE APPEARANCE CLEAR; URINE BILIRUBIN NEGATIVE (NEGATIVE); URINE COLOR YELLOW; URINE GLUCOSE (UA) NEGATIVE (NEGATIVE); URINE KETONE NEGATIVE (NEGATIVE); URINE LEUK ESTERASE NEGATIVE (NEGATIVE); URINE NITRITE NEGATIVE (NEGATIVE); URINE PROTEIN NEGATIVE (NEGATIVE); URINE UROBILINOGEN 0.2 mg/dL (0.2-1.0)
[2022-04-13] MEDS ORDERED: MELATONIN 5 MG TABLETS PO SCH (22:00)
[2022-04-13] MEDS ORDERED: ATORVASTATIN CA 10 MG TABLET (FP) PO SCH (22:00)
[2022-04-13] MEDS ORDERED: LOSARTAN POTASSIUM 50 MG TABLET PO SCH (22:00)
[2022-04-13] MEDS: SENNOSIDES 8.6MG TABLET (FP) PO SCH (22:16)
[2022-04-13] MEDS: PREGABALIN 50 MG CAPSULE PO SCH (22:16)
[2022-04-13 23:41] VITALS: RESP 20
[2022-04-14] MEDS ORDERED: PANTOPRAZOLE 20 MG TABLET PO SCH (07:00)
[2022-04-14 08:35] VITALS: BP 128/75; PULSE 92; TEMP 97.9
[2022-04-14] MEDS: PREGABALIN 50 MG CAPSULE PO SCH (09:20)
[2022-04-14] MEDS: FAMOTIDINE 20 MG TABLET PO SCH (09:21)
[2022-04-14] MEDS: SENNOSIDES 8.6MG TABLET (FP) PO SCH (09:21)
[2022-04-14] MEDS ORDERED: ARMODAFINIL 250 MG PO SCH (10:00)
[2022-04-14] MEDS ORDERED: RIVAROXABAN 20 MG TABLET PO SCH (18:00)
== END 2022-04-14 18:19 | disposition home or self-care (01) ==
LOC: JER 09:39 → JERBED 12:39 → J4S 21:37
PROVIDERS: ADMIT Internal Medicine; ATTEND Internal Medicine
PROC: 3E033GC Introduction of Other Therapeutic Substance into Peripheral Vein, Percutaneous Approach (ICD-10-PCS; principal; 2022-04-13)
DX: Z87.891 Personal history of nicotine dependence (principal); I48.91 Unspecified atrial fibrillation; I10 Essential (primary) hypertension; E78.5 Hyperlipidemia, unspecified; Z88.0 Allergy status to penicillin; Z88.5 Allergy status to narcotic agent; Z88.2 Allergy status to sulfonamides; K21.9 Gastro-esophageal reflux disease without esophagitis; G47.33 Obstructive sleep apnea (adult) (pediatric); G62.89 Other specified polyneuropathies; Z79.01 Long term (current) use of anticoagulants
CPT/HCPCS: 36415; 71045-TC-FY; 80053; 81003; 83735; 83880; 84484; 85025; 85610; 85730; 87086; 93005; 93010; 96365; 99285-25; C9803-CS; G0378; U0003; U0005

== ENCOUNTER 2022-06-21 10:15 | Inpatient (IN) | payer OTHER, BC ==
[2022-06-21 10:36] VITALS: BMI 31.9
[2022-06-21] MEDS ORDERED: NITROGLYCERIN SUBLINGUAL 1/150 0.4 MG TAB SL ONE (11:15)
[2022-06-21 11:21] LABS: BASO % 0.6 % (0-2.0); HEMATOCRIT 36.4 % (32.4-45.2); HEMOGLOBIN 11.3 GM/dL (10.7-15.3); LYMPH % 4.9 % (8-40); MCH 25.5 pg (25.7-33.7); MEAN CELL VOLUME 82.1 fl (80-96); MEAN PLT VOLUME 7.3 fl (7.5-11.1); MONO % 12.1 % (3.8-10.2); NEUT % 81.4 % (42.8-82.8); PLATELET COUNT 273 10^3/uL (134-434); RBC 4.44 M/mm3 (3.60-5.2); RDW 18.5 % (11.6-15.6); WHITE BLOOD COUNT 10.5 K/mm3 (4.0-10.0)
[2022-06-21] MEDS ORDERED: NITROGLYCERIN SUBLINGUAL 1/150 0.4 MG TAB ONE (11:21)
[2022-06-21 11:24] LABS: INR 1.29 (0.83-1.09); PROTHROMBIN TIME (PATIENT) 14.9 SEC (9.7-13.0)
[2022-06-21 11:27] LABS: ACTIVATED PTT 35.8 SECONDS (25.2-36.5)
[2022-06-21 11:40] LABS: ALBUMIN 3.2 g/dl (3.4-5.0); CALCIUM 8.7 mg/dL (8.5-10.1)
[2022-06-21 11:42] LABS: CREATININE 0.5 mg/dL (0.55-1.3)
[2022-06-21 11:44] LABS: TOT PROT 6.7 g/dl (6.4-8.2)
[2022-06-21 11:49] LABS: BILIRUBIN,TOTAL 0.3 mg/dL (0.2-1)
[2022-06-21] MEDS: PREGABALIN 100 MG CAPSULE PO SCH (21:33)
[2022-06-21] MEDS ORDERED: MELATONIN 5 MG TABLETS PO SCH (22:00)
[2022-06-21] MEDS ORDERED: ATORVASTATIN CA 10 MG TABLET (FP) PO SCH (22:00)
[2022-06-22 08:59] LABS: BASO % 0.4 % (0-2.0); EOS % 1.4 % (0-4.5); HEMATOCRIT 37.1 % (32.4-45.2); HEMOGLOBIN 11.4 GM/dL (10.7-15.3); LYMPH % 8.9 % (8-40); MCH 25.8 pg (25.7-33.7); MCHC 30.8 g/dl (32.0-36.0); MEAN PLT VOLUME 7.4 fl (7.5-11.1); MONO % 14.4 % (3.8-10.2); NEUT % 74.9 % (42.8-82.8); PLATELET COUNT 237 10^3/uL (134-434); RBC 4.42 M/mm3 (3.60-5.2); RDW 18.6 % (11.6-15.6); WHITE BLOOD COUNT 7.6 K/mm3 (4.0-10.0)
[2022-06-22] MEDS: PREGABALIN 100 MG CAPSULE PO SCH (09:10)
[2022-06-22 09:13] LABS: CALCIUM 8.5 mg/dL (8.5-10.1)
[2022-06-22 09:14] LABS: ALBUMIN 3.1 g/dl (3.4-5.0); BLOOD UREA NITROGEN 11.2 mg/dL (7-18); MAGNESIUM 2.2 mg/dL (1.8-2.4)
[2022-06-22 09:16] LABS: CREATININE 0.4 mg/dL (0.55-1.3)
[2022-06-22 09:17] LABS: PHOSPHOROUS 3.8 mg/dL (2.5-4.9)
[2022-06-22 09:18] LABS: BILIRUBIN,TOTAL 0.5 mg/dL (0.2-1); TOT PROT 6.4 g/dl (6.4-8.2)
[2022-06-22] MEDS ORDERED: PANTOPRAZOLE 40 MG TABLET PO SCH (10:00)
[2022-06-22] MEDS ORDERED: ENOXAPARIN NA (PORCINE) 40 MG/0.4 ML DISP.SYRIN SQ SCH (10:00)
[2022-06-22 11:22] VITALS: RESP 18
[2022-06-22 14:54] VITALS: BP 152/73; PULSE 99; TEMP 98
[2022-06-23] MEDS ORDERED: RIVAROXABAN 20 MG TABLET PO SCH (10:00)
== END 2022-06-22 18:49 | disposition home or self-care (01) ==
LOC: JER 10:15 → JERBED 14:58 → OBSVTOIN 17:04 → J4S 21:00
PROVIDERS: ADMIT Internal Medicine; ATTEND Nurse Practitioner Acute Care
PROC: 3E023GC Introduction of Other Therapeutic Substance into Muscle, Percutaneous Approach (ICD-10-PCS; principal; 2022-06-21)
DX: I48.91 Unspecified atrial fibrillation (principal); E11.9 Type 2 diabetes mellitus without complications; E78.5 Hyperlipidemia, unspecified; K21.9 Gastro-esophageal reflux disease without esophagitis; R07.9 Chest pain, unspecified; I10 Essential (primary) hypertension; Z88.0 Allergy status to penicillin; Z88.5 Allergy status to narcotic agent; Z88.2 Allergy status to sulfonamides; Z29.8 Encounter for other specified prophylactic measures; G47.33 Obstructive sleep apnea (adult) (pediatric); R60.0 Localized edema; Z79.01 Long term (current) use of anticoagulants
CPT/HCPCS: 0241U-QW; 36415; 71045-TC-FY; 71275-TC; 74174-TC; 80053; 82962; 83735; 84100; 84484; 85025; 85610; 85730; 93005; 93010; 94660; 94761; 96372; 99285-25; G0378; Q9967